=== PATIENT | male | born 1945 | race Caucasian/White ===

== ENCOUNTER 2020-07-20 10:53 | Outpatient (REF) | payer MEDICARE, OTHER, SELFPAY ==
[2020-07-20 13:30] LABS: MANUAL DIFF FLAG NO
[2020-07-20 13:43] LABS: Basophils Absolute Auto 0.1 X10*3/uL (0.0-0.2); Eosinophils Absolute Auto 0.1 X10*3/uL (0.0-0.4); Eosinophils Percent Auto 2.6 % (0-4); Hematocrit 48.1 % (42-52); Hemoglobin 15.8 g/dl (14.0-18.0); Imm Gran Abs Auto 0.02 X10*3/uL (0.00-0.03); Imm Gran Pct Auto 0.4 % (0.0-0.4); Lymphocytes Absolute Auto 1.4 X10*3/uL (1.2-4.9); Lymphocytes Percent Auto 26.7 % (20-40); Mean Corpuscular HGB Conc 32.8 g/dl (31.0-36.0); Mean Corpuscular Hemoglobin 30.2 pg (27.0-33.0); Mean Platelet Volume 12.3 fL (9.4-12.4); Monocytes Absolute Auto 0.4 X10*3/uL (0.1-1.2); Monocytes Percent Auto 6.9 % (2-11); Neutrophils Absolute Auto 3.2 X10*3/uL (2.0-8.3); Neutrophils Percent Auto 62.4 % (45-73); Platelet Count 202 X10*3/uL (160-400); Red Blood Count 5.23 X10*6/uL (4.60-5.80); Red Cell Distribution Width 13.2 % (11.0-16.0); White Blood Count 5.1 X10*3/uL (4.8-10.8)
[2020-07-20 14:14] LABS: Alanine Aminotransferase 29 U/L (0-40); Albumin Level 4.3 g/dL (3.5-5.0); Alkaline Phosphatase 55 U/L (39-117); Anion Gap 11 (12-20); Aspartate Amino Transferase 19 U/L (5-37); Bilirubin Total 1.1 mg/dL (0.0-1.0); Blood Urea Nitrogen 17 mg/dL (9-16); Calcium 9.6 mg/dL (8.4-10.2); Carbon Dioxide 29 mmol/L (22-29); Chloride 106 mmol/L (96-108); Cholesterol 188 mg/dL; Estimated Glomerular Filt Rate > 60; Glucose Fasting 106 mg/dL (60-99); HDL Cholesterol 42 mg/dL; LDL Cholesterol Calculated 111 mg/dl; Potassium 4.8 mmol/L (3.3-5.1); Sodium 141 mmol/L (135-145); Total Protein 6.6 g/dL (6.5-8.0); Triglycerides 177 mg/dL
[2020-07-20 14:22] LABS: Prostate Specific Antigen 2.53 ng/mL (<0.05-4.0)
[2020-07-25 14:17] LABS: Testosterone, Free 89.5 pg/mL (30.0-135.0); Testosterone, Total 476 ng/dL (250-1100)
== END 2020-07-20 10:54 | disposition home or self-care (01) ==
LOC: HO.10HDL 10:53
PROVIDERS: Referring Provider Urology; Visit Provider Internal Medicine Medical Oncology
DX: Q98.4 Klinefelter syndrome, unspecified (principal); C61 Malignant neoplasm of prostate; E66.3 Overweight; Z12.5 Encounter for screening for malignant neoplasm of prostate
CPT/HCPCS: 36415; 80053; 80061; 84153; 84402; 84403; 85025

== ENCOUNTER → 2020-07-24 08:26 | Outpatient (BNVA) | payer MEDICARE, OTHER, SELFPAY | PROVIDERS: Visit Provider Urology | CPT/HCPCS: Q3014 ==

== ENCOUNTER 2020-10-20 09:40 | Outpatient (REF) | payer MEDICARE, OTHER, SELFPAY ==
[2020-10-20 10:15] LABS: MANUAL DIFF FLAG NO
[2020-10-20 10:19] LABS: Basophils Absolute Auto 0.1 X10*3/uL (0.0-0.2); Basophils Percent Auto 0.8 % (0-2); Eosinophils Absolute Auto 0.2 X10*3/uL (0.0-0.4); Hematocrit 48.6 % (42-52); Hemoglobin 16.4 g/dl (14.0-18.0); Imm Gran Abs Auto 0.02 X10*3/uL (0.00-0.03); Imm Gran Pct Auto 0.3 % (0.0-0.4); Lymphocytes Absolute Auto 1.3 X10*3/uL (1.2-4.9); Lymphocytes Percent Auto 20.8 % (20-40); Mean Corpuscular HGB Conc 33.7 g/dl (31.0-36.0); Mean Corpuscular Hemoglobin 30.8 pg (27.0-33.0); Mean Corpuscular Volume 91.4 fL (80-98); Mean Platelet Volume 11.6 fL (9.4-12.4); Monocytes Absolute Auto 0.5 X10*3/uL (0.1-1.2); Monocytes Percent Auto 8.5 % (2-11); Neutrophils Absolute Auto 4.3 X10*3/uL (2.0-8.3); Neutrophils Percent Auto 66.6 % (45-73); Platelet Count 225 X10*3/uL (160-400); Red Blood Count 5.32 X10*6/uL (4.60-5.80); Red Cell Distribution Width 13.5 % (11.0-16.0); White Blood Count 6.4 X10*3/uL (4.8-10.8)
[2020-10-20 10:47] LABS: Alanine Aminotransferase 42 U/L (0-40); Albumin Level 4.2 g/dL (3.5-5.0); Alkaline Phosphatase 61 U/L (39-117); Anion Gap 11 (12-20); Aspartate Amino Transferase 24 U/L (5-37); Bilirubin Total 0.9 mg/dL (0.0-1.0); Blood Urea Nitrogen 12 mg/dL (9-16); Calcium 9.7 mg/dL (8.4-10.2); Carbon Dioxide 28 mmol/L (22-29); Chloride 108 mmol/L (96-108); Cholesterol 182 mg/dL; Estimated Glomerular Filt Rate > 60; Glucose Fasting 108 mg/dL (60-99); HDL Cholesterol 42 mg/dL; LDL Cholesterol Calculated 117 mg/dl; Potassium 5.1 mmol/L (3.3-5.1); Sodium 142 mmol/L (135-145); Total Protein 6.7 g/dL (6.5-8.0); Triglycerides 119 mg/dL
[2020-10-20 11:04] LABS: Prostate Specific Antigen 3.79 ng/mL (<0.05-4.0)
== END 2020-10-20 09:41 | disposition home or self-care (01) ==
LOC: HO.10HDL 09:40
PROVIDERS: PCP Internal Medicine Medical Oncology; Visit Provider Urology
DX: C61 Malignant neoplasm of prostate (principal); Q98.4 Klinefelter syndrome, unspecified; N40.0 Benign prostatic hyperplasia without lower urinary tract symptoms; E66.3 Overweight; Z86.79 Personal history of other diseases of the circulatory system
CPT/HCPCS: 36415; 80053; 80061; 84153; 85025

== ENCOUNTER → 2020-10-29 16:01 | Outpatient (BNVA) | payer MEDICARE, OTHER, SELFPAY | PROVIDERS: PCP Internal Medicine Medical Oncology; Visit Provider Urology | CPT/HCPCS: Q3014 ==

== ENCOUNTER 2021-08-10 08:31 | Outpatient (REF) | payer MEDICARE, OTHER, SELFPAY ==
[2021-08-10 11:45] LABS: MANUAL DIFF FLAG NO
[2021-08-10 12:02] LABS: Basophils Percent Auto 0.7 % (0-2); Eosinophils Absolute Auto 0.1 X10*3/uL (0.0-0.4); Eosinophils Percent Auto 2.4 % (0-4); Hematocrit 48.9 % (42.0-52.0); Hemoglobin 16.2 g/dl (14.0-18.0); Imm Gran Abs Auto 0.02 X10*3/uL (0.00-0.03); Imm Gran Pct Auto 0.3 % (0.0-0.4); Lymphocytes Absolute Auto 1.4 X10*3/uL (1.2-4.9); Lymphocytes Percent Auto 25.1 % (20-40); Mean Corpuscular HGB Conc 33.1 g/dl (31.0-36.0); Mean Corpuscular Hemoglobin 30.4 pg (27.0-33.0); Mean Corpuscular Volume 91.7 fL (80.0-98.0); Monocytes Absolute Auto 0.5 X10*3/uL (0.1-1.2); Monocytes Percent Auto 8.9 % (2-11); Neutrophils Absolute Auto 3.6 x10*3/uL (2.0-8.3); Neutrophils Percent Auto 62.6 % (45-73); Platelet Count 201 X10*3/uL (160-400); Red Blood Count 5.33 X10*6/uL (4.60-5.80); Red Cell Distribution Width 13.2 % (11.0-16.0); White Blood Count 5.7 X10*3/uL (4.8-10.8)
[2021-08-10 12:16] LABS: Alanine Aminotransferase 25 U/L (0-40); Albumin Level 4.2 g/dL (3.5-5.0); Alkaline Phosphatase 57 U/L (39-117); Anion Gap 12 (12-20); Aspartate Amino Transferase 20 U/L (5-37); Bilirubin Total 1.3 mg/dL (0.0-1.0); Blood Urea Nitrogen 12 mg/dL (9-16); Calcium 9.4 mg/dL (8.4-10.2); Carbon Dioxide 28 mmol/L (22-29); Chloride 105 mmol/L (96-108); Cholesterol 112 mg/dL; Estimated Glomerular Filt Rate > 60; Glucose Fasting 117 mg/dL (60-99); HDL Cholesterol 40 mg/dL; LDL Cholesterol Calculated 47 mg/dl; Potassium 5.1 mmol/L (3.3-5.1); Sodium 140 mmol/L (135-145); Total Protein 6.6 g/dL (6.5-8.0); Triglycerides 127 mg/dL
[2021-08-10 12:30] LABS: PSA,Total (Free>4and<10) 3.18 ng/mL (0.00-4.00)
[2021-08-10 12:46] LABS: Prostate Specific Antigen 3.18 ng/mL (<0.05-4.0)
== END 2021-08-10 08:32 | disposition home or self-care (01) ==
LOC: HO.HMGCLDS 08:31
PROVIDERS: Absent Provider Urology; PCP Internal Medicine Medical Oncology; Visit Provider Internal Medicine Medical Oncology
DX: N40.0 Benign prostatic hyperplasia without lower urinary tract symptoms (principal); C61 Malignant neoplasm of prostate; E66.3 Overweight; Z12.5 Encounter for screening for malignant neoplasm of prostate
CPT/HCPCS: 36415; 80053; 80061; 84153; 85025

== ENCOUNTER → 2021-10-06 14:04 | Outpatient (BNVA) | payer MEDICARE, OTHER, SELFPAY | PROVIDERS: PCP Internal Medicine Medical Oncology; Visit Provider Urology | DX: C61 Malignant neoplasm of prostate (principal); N52.1 Erectile dysfunction due to diseases classified elsewhere | CPT/HCPCS: 99212 ==

== ENCOUNTER 2022-07-28 09:59 | Outpatient (REF) | payer MEDICARE, OTHER, SELFPAY ==
[2022-07-28 11:00] LABS: MANUAL DIFF FLAG NO
[2022-07-28 11:24] LABS: Basophils Absolute Auto 0.1 X10*3/uL (0.0-0.2); Basophils Percent Auto 1.1 % (0-2); Eosinophils Absolute Auto 0.2 X10*3/uL (0.0-0.4); Eosinophils Percent Auto 4.3 % (0-4); Hematocrit 47.6 % (42.0-52.0); Imm Gran Abs Auto 0.04 X10*3/uL (0.00-0.03); Imm Gran Pct Auto 0.8 % (0.0-0.4); Lymphocytes Absolute Auto 1.2 X10*3/uL (1.2-4.9); Lymphocytes Percent Auto 22.2 % (20-40); Mean Corpuscular HGB Conc 33.6 g/dl (31.0-36.0); Mean Corpuscular Hemoglobin 30.5 pg (27.0-33.0); Mean Corpuscular Volume 90.8 fL (80.0-98.0); Monocytes Absolute Auto 0.5 X10*3/uL (0.1-1.2); Monocytes Percent Auto 8.5 % (2-11); Neutrophils Absolute Auto 3.4 x10*3/uL (2.0-8.3); Neutrophils Percent Auto 63.1 % (45-73); Platelet Count 186 X10*3/uL (160-400); Red Blood Count 5.24 X10*6/uL (4.60-5.80); Red Cell Distribution Width 13.6 % (11.0-16.0); White Blood Count 5.3 X10*3/uL (4.8-10.8)
[2022-07-28 12:17] LABS: Alanine Aminotransferase 25 U/L (0-40); Albumin Level 4.1 g/dL (3.5-5.0); Alkaline Phosphatase 55 U/L (39-117); Anion Gap 14 (12-20); Aspartate Amino Transferase 23 U/L (5-37); Bilirubin Total 1.4 mg/dL (0.0-1.0); Blood Urea Nitrogen 11 mg/dL (9-16); Calcium 9.1 mg/dL (8.4-10.2); Carbon Dioxide 24 mmol/L (22-29); Chloride 105 mmol/L (96-108); Cholesterol 118 mg/dL; Estimated Glomerular Filt Rate > 60; Glucose Fasting 106 mg/dL (60-99); HDL Cholesterol 40 mg/dL; LDL Cholesterol Calculated 57 mg/dl; Potassium 4.9 mmol/L (3.3-5.1); Sodium 138 mmol/L (135-145); Total Protein 6.6 g/dL (6.5-8.0); Triglycerides 106 mg/dL
== END 2022-07-28 10:00 | disposition home or self-care (01) ==
LOC: HO.HMGCLDS 09:59
PROVIDERS: PCP Internal Medicine Medical Oncology; Visit Provider Urology
DX: E78.5 Hyperlipidemia, unspecified (principal); I20.0 Unstable angina
CPT/HCPCS: 36415; 80053; 80061; 85025

== ENCOUNTER 2022-08-12 09:53 | Outpatient (REF) | payer MEDICARE, OTHER, SELFPAY ==
[2022-08-12 12:11] LABS: Prostate Specific Antigen 3.77 ng/mL (<0.05-4.0)
== END 2022-08-12 09:54 | disposition home or self-care (01) ==
LOC: HO.HMGCLDS 09:53
PROVIDERS: PCP Internal Medicine Medical Oncology; Visit Provider Urology
DX: Z12.5 Encounter for screening for malignant neoplasm of prostate (principal); C61 Malignant neoplasm of prostate
CPT/HCPCS: 36415; 84153

== ENCOUNTER 2022-08-18 14:00 | Outpatient (AMB) | payer MEDICARE, OTHER, SELFPAY ==
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
== END 2022-08-18 15:16 | disposition home or self-care (01) ==
LOC: HO.HUSH 14:00
PROVIDERS: PCP Internal Medicine Medical Oncology; Visit Provider Urology
DX: C61 Malignant neoplasm of prostate (principal); N52.1 Erectile dysfunction due to diseases classified elsewhere
CPT/HCPCS: 99442

== ENCOUNTER → 2022-08-18 14:00 | Outpatient (BNVA) | payer MEDICARE, OTHER, SELFPAY | PROVIDERS: PCP Internal Medicine Medical Oncology; Visit Provider Urology ==

== ENCOUNTER 2022-10-12 09:54 | Outpatient (REF) | payer MEDICARE, OTHER, SELFPAY ==
[2022-10-12 11:21] LABS: MANUAL DIFF FLAG NO
[2022-10-12 11:32] LABS: Basophils Absolute Auto 0.1 X10*3/uL (0.0-0.2); Basophils Percent Auto 0.7 % (0-2); Eosinophils Absolute Auto 0.2 X10*3/uL (0.0-0.4); Eosinophils Percent Auto 2.6 % (0-4); Hematocrit 49.2 % (42.0-52.0); Hemoglobin 16.4 g/dl (14.0-18.0); Imm Gran Abs Auto 0.03 X10*3/uL (0.00-0.03); Imm Gran Pct Auto 0.4 % (0.0-0.4); Lymphocytes Absolute Auto 0.9 X10*3/uL (1.2-4.9); Lymphocytes Percent Auto 12.5 % (20-40); Mean Corpuscular HGB Conc 33.3 g/dl (31.0-36.0); Mean Corpuscular Hemoglobin 29.8 pg (27.0-33.0); Mean Corpuscular Volume 89.5 fL (80.0-98.0); Mean Platelet Volume 12.4 fL (9.4-12.4); Monocytes Absolute Auto 0.5 X10*3/uL (0.1-1.2); Monocytes Percent Auto 6.1 % (2-11); Neutrophils Absolute Auto 5.9 x10*3/uL (2.0-8.3); Neutrophils Percent Auto 77.7 % (45-73); Platelet Count 176 X10*3/uL (160-400); Red Cell Distribution Width 13.5 % (11.0-16.0); White Blood Count 7.6 X10*3/uL (4.8-10.8)
[2022-10-12 12:09] LABS: Alanine Aminotransferase 27 U/L (0-40); Albumin Level 4.2 g/dL (3.5-5.0); Alkaline Phosphatase 52 U/L (39-117); Anion Gap 10 (12-20); Aspartate Amino Transferase 21 U/L (5-37); Bilirubin Total 1.8 mg/dL (0.0-1.0); Blood Urea Nitrogen 15 mg/dL (9-16); Calcium 9.1 mg/dL (8.4-10.2); Carbon Dioxide 25 mmol/L (22-29); Chloride 109 mmol/L (96-108); Cholesterol 134 mg/dL; Estimated Glomerular Filt Rate > 60; Glucose Random 108 mg/dL (60-115); HDL Cholesterol 47 mg/dL; LDL Cholesterol Calculated 63 mg/dl; Potassium 4.3 mmol/L (3.3-5.1); Sodium 140 mmol/L (135-145); Total Protein 6.8 g/dL (6.5-8.0); Triglycerides 122 mg/dL
== END 2022-10-12 09:55 | disposition home or self-care (01) ==
LOC: HO.WFDLDS 09:54
PROVIDERS: Visit Provider Internal Medicine Medical Oncology
DX: C61 Malignant neoplasm of prostate (principal); N40.0 Benign prostatic hyperplasia without lower urinary tract symptoms; E66.3 Overweight
CPT/HCPCS: 36415; 80053; 80061; 84153; 85025

== ENCOUNTER 2023-07-26 09:35 | Outpatient (REF) | payer MEDICARE, OTHER, SELFPAY ==
[2023-07-26 11:42] LABS: MANUAL DIFF FLAG NO
[2023-07-26 11:51] LABS: Basophils Absolute Auto 0.1 X10*3/uL (0.0-0.2); Basophils Percent Auto 1.2 % (0-2); Eosinophils Absolute Auto 0.2 X10*3/uL (0.0-0.4); Eosinophils Percent Auto 2.9 % (0-4); Hemoglobin 16.5 g/dl (14.0-18.0); Imm Gran Abs Auto 0.01 X10*3/uL (0.00-0.03); Imm Gran Pct Auto 0.2 % (0.0-0.4); Lymphocytes Percent Auto 19.4 % (20-40); Mean Corpuscular HGB Conc 33.7 g/dl (31.0-36.0); Mean Corpuscular Hemoglobin 30.7 pg (27.0-33.0); Mean Corpuscular Volume 91.1 fL (80.0-98.0); Mean Platelet Volume 12.4 fL (9.4-12.4); Monocytes Absolute Auto 0.4 X10*3/uL (0.1-1.2); Monocytes Percent Auto 8.4 % (2-11); Neutrophils Absolute Auto 3.5 x10*3/uL (2.0-8.3); Neutrophils Percent Auto 67.9 % (45-73); Platelet Count 184 X10*3/uL (160-400); Red Blood Count 5.38 X10*6/uL (4.60-5.80); Red Cell Distribution Width 13.4 % (11.0-16.0); White Blood Count 5.1 X10*3/uL (4.8-10.8)
[2023-07-26 12:36] LABS: Alanine Aminotransferase 26 U/L (0-40); Albumin Level 4.3 g/dL (3.5-5.0); Alkaline Phosphatase 51 U/L (39-117); Anion Gap 11 (12-20); Aspartate Amino Transferase 24 U/L (5-37); Bilirubin Total 1.7 mg/dL (0.0-1.0); Blood Urea Nitrogen 14 mg/dL (9-16); Calcium 9.7 mg/dL (8.4-10.2); Carbon Dioxide 27 mmol/L (22-29); Chloride 105 mmol/L (96-108); Cholesterol 110 mg/dL (<200); Estimated Glomerular Filt Rate > 60; Glucose Fasting 91 mg/dL (60-99); HDL Cholesterol 42 mg/dL (>40); LDL Cholesterol Calculated 46 mg/dL (<100); Potassium 4.4 mmol/L (3.3-5.1); Sodium 139 mmol/L (135-145); Total Protein 6.9 g/dL (6.5-8.0); Triglycerides 110 mg/dL (<150)
[2023-07-29 11:28] LABS: Free Prostate Spec Ag 0.8 ng/mL; Percent Free Prostate Spec Ag 19 % (calc) (>25); Prostate Specific Ag Total 4.2 ng/mL (< OR = 4.0)
[2023-07-31 17:04] LABS: Testosterone, Total 1117 ng/dL (250-1100)
== END 2023-07-26 09:36 | disposition home or self-care (01) ==
LOC: HO.WFDLDS 09:35
PROVIDERS: Urology; Visit Provider Internal Medicine Medical Oncology
DX: C61 Malignant neoplasm of prostate (principal); Z12.5 Encounter for screening for malignant neoplasm of prostate; N40.0 Benign prostatic hyperplasia without lower urinary tract symptoms; E66.3 Overweight; N52.9 Male erectile dysfunction, unspecified
CPT/HCPCS: 36415; 80053; 80061; 84153; 84154; 84403; 85025

== ENCOUNTER 2023-08-03 09:32 | Outpatient (AMB) | payer MEDICARE, OTHER, SELFPAY ==
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
== END 2023-08-03 10:49 | disposition home or self-care (01) ==
PROVIDERS: PCP Internal Medicine Medical Oncology; Visit Provider Urology
DX: C61 Malignant neoplasm of prostate (principal); N52.1 Erectile dysfunction due to diseases classified elsewhere
CPT/HCPCS: 99213

== ENCOUNTER → 2023-08-03 09:32 | Outpatient (BNVA) | payer MEDICARE, OTHER, SELFPAY | PROVIDERS: PCP Internal Medicine Medical Oncology; Visit Provider Urology | DX: C61 Malignant neoplasm of prostate (principal); N52.1 Erectile dysfunction due to diseases classified elsewhere; R97.20 Elevated prostate specific antigen [PSA] | CPT/HCPCS: 99212 ==

== ENCOUNTER 2023-11-03 09:05 | Outpatient (AMB) | payer MEDICARE, OTHER, SELFPAY ==
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
== END 2023-11-03 09:54 | disposition home or self-care (01) ==
PROVIDERS: PCP Internal Medicine Medical Oncology; Visit Provider Urology
DX: E29.1 Testicular hypofunction (principal); C61 Malignant neoplasm of prostate
CPT/HCPCS: 99213

== ENCOUNTER → 2023-11-03 09:05 | Outpatient (BNVA) | payer MEDICARE, OTHER, SELFPAY | PROVIDERS: PCP Internal Medicine Medical Oncology; Visit Provider Urology | DX: C61 Malignant neoplasm of prostate (principal); N52.9 Male erectile dysfunction, unspecified; E29.1 Testicular hypofunction; Z79.899 Other long term (current) drug therapy | CPT/HCPCS: 99212 ==

== ENCOUNTER 2023-11-06 10:20 | Outpatient (REF) | payer MEDICARE, OTHER, SELFPAY ==
[2023-11-06 14:27] LABS: MANUAL DIFF FLAG NO
[2023-11-06 14:42] LABS: Basophils Absolute Auto 0.1 X10*3/uL (0.0-0.2); Basophils Percent Auto 1.1 % (0-2); Eosinophils Absolute Auto 0.1 X10*3/uL (0.0-0.4); Eosinophils Percent Auto 2.3 % (0-4); Hemoglobin 16.9 g/dl (14.0-18.0); Imm Gran Abs Auto 0.01 X10*3/uL (0.00-0.03); Imm Gran Pct Auto 0.2 % (0.0-0.4); Lymphocytes Absolute Auto 1.1 X10*3/uL (1.2-4.9); Lymphocytes Percent Auto 20.2 % (20-40); Mean Corpuscular HGB Conc 33.1 g/dl (31.0-36.0); Mean Corpuscular Volume 90.4 fL (80.0-98.0); Mean Platelet Volume 12.5 fL (9.4-12.4); Monocytes Absolute Auto 0.5 X10*3/uL (0.1-1.2); Monocytes Percent Auto 8.1 % (2-11); Neutrophils Absolute Auto 3.8 x10*3/uL (2.0-8.3); Neutrophils Percent Auto 68.1 % (45-73); Platelet Count 179 X10*3/uL (160-400); Red Blood Count 5.64 X10*6/uL (4.60-5.80); Red Cell Distribution Width 13.6 % (11.0-16.0); White Blood Count 5.5 X10*3/uL (4.8-10.8)
[2023-11-06 15:10] LABS: Alanine Aminotransferase 23 U/L (0-40); Albumin Level 4.1 g/dL (3.5-5.0); Alkaline Phosphatase 50 U/L (39-117); Anion Gap 13 (12-20); Aspartate Amino Transferase 21 U/L (5-37); Bilirubin Total 1.5 mg/dL (0.0-1.0); Blood Urea Nitrogen 12 mg/dL (9-16); Calcium 9.8 mg/dL (8.4-10.2); Carbon Dioxide 27 mmol/L (22-29); Chloride 106 mmol/L (96-108); Estimated Glomerular Filt Rate > 60; Glucose Fasting 108 mg/dL (60-99); Potassium 4.9 mmol/L (3.3-5.1); Sodium 141 mmol/L (135-145); Total Protein 6.6 g/dL (6.5-8.0)
[2023-11-06 15:11] LABS: Thyroid Stimulating Hormone 4.07 uIU/mL (0.32-4.0)
[2023-11-07 12:27] LABS: Percent Free Prostate Spec Ag 26 % (calc) (>25); Prostate Specific Ag Total 3.9 ng/mL (< OR = 4.0)
== END 2023-11-06 10:21 | disposition home or self-care (01) ==
LOC: HO.WFDLDS 10:20
PROVIDERS: Visit Provider Internal Medicine Medical Oncology
DX: Z00.00 Encounter for general adult medical examination without abnormal findings (principal); N40.0 Benign prostatic hyperplasia without lower urinary tract symptoms; C61 Malignant neoplasm of prostate; E66.3 Overweight; I25.10 Atherosclerotic heart disease of native coronary artery without angina pectoris; Q98.4 Klinefelter syndrome, unspecified; Z86.79 Personal history of other diseases of the circulatory system
CPT/HCPCS: 36415; 80053; 84154; 84443; 85025

== ENCOUNTER 2023-11-23 11:49 | Day surgery (SDC) | payer MEDICARE, OTHER, SELFPAY ==
[2023-11-21 13:40] VITALS: BMI 27.6
--- NOTE | 2023-11-22 10:05 | HO.ANESPROP2 ---
Documented by User: Angella Salmon NP 11/22/23 10:11 HPI - Anesthesia Eval Consult details Narrative: 78yo M for Colonoscopy [place]s [place] of state cardiology. Last office visit 04/2023 CAD s/p stents x 2021 plavix/asa Afib, no recurrence s/p ablation PMFSH Active Problems Active Problems: All Active Problems Hypogonadism in male (Acute) Erectile dysfunction due to diseases classified elsewhere (Acute) Prostate cancer (Acute) Past Medical History Medical History CAD (coronary artery disease) Glaucoma Afib Erectile dysfunction due to diseases classified elsewhere Prostate cancer Elevated PSA Surgical History Surgical History Hx of prostate biopsy Hx of hand surgery Hx of carpal tunnel repair Hx of knee surgery Hx of cholecystectomy Hx of appendectomy History of cardiac radiofrequency ablation (RFA) H/O colonoscopy Social History Social History Are you a primary personal care attendant to a significant other at home: No Do you presently have visiting nurse or other home services: No Patient Tobacco Use Status: Former Tobacco user Tobacco use type: Cigarette Cigarette Packs Per Day: 0.5 Cigarettes Per Day: 10.0 Years Smoked: 20 Smoked in Last 30 Days: No Use of substances other than those prescribed or required for medical reasons: No Have you been hit, kicked, punched, or otherwise hurt by someone within the past year? If so, by whom?: No Are you DNR?: No Advance Directives: No Advance Directives Information Provided: Yes Recently lost weight without trying: No How much weight loss: Not applicable Eating poorly because of decreased appetite: No Nutrition screen score: 0 Nutrition Risks: No Nutritional Risk Poor oral hygiene: No Meds Allergies Allergy/AdvReac Type Severity Reaction Status Date / Time No Known Allergies Allergy Verified 11/23/23 12:27 Home Medications ?Medication ?Instructions ?Recorded ?Confirmed ?Last Taken ?Type aspirin 81 mg tablet,delayed 81 mg PO DAILY 11/21/23 11/23/23 11/21/23 History release atorvastatin 20 mg tablet 20 mg PO DAILY 11/21/23 11/23/23 Unknown History clopidogrel 75 mg tablet 75 mg PO DAILY 11/21/23 11/23/23 11/18/23 History metoprolol succinate 25 mg 25 mg PO DAILY 11/21/23 11/23/23 11/22/23 History tablet,extended release 24 hr timolol 0.25 % eye drops 1 drp ophthalmic (eye) BID 11/21/23 11/23/23 Unknown History Exam Height,Weight and Vital Signs: Height 5 ft 11 in Weight 89.811 kg Pertinent Lab Results Pertinent Lab Results: Laboratory Tests 11/06/23 10:28 WBC 5.5 Hgb 16.9 Hct 51.0 Plt Count 179 Sodium 141 Potassium 4.9 Chloride 106 Carbon Dioxide 27 BUN 12 Creatinine 0.88 Narrative Narrative: See cardiac office visit note for stress echo and cath results Assessment and Plan Assessment Anesthesia Assessment: Chart Reviewed Documented by User: Aubree Cruz MD 11/23/23 13:01 [facility] Past Medical History Medical History CAD (coronary artery disease) Glaucoma Afib Erectile dysfunction due to diseases classified elsewhere Prostate cancer Elevated PSA Surgical History Surgical History Hx of prostate biopsy Hx of hand surgery Hx of carpal tunnel repair Hx of knee surgery Hx of cholecystectomy Hx of appendectomy History of cardiac radiofrequency ablation (RFA) H/O colonoscopy History of Problems with Anesthesia: No Social History Social History Are you a primary personal care attendant to a significant other at home: No Do you presently have visiting nurse or other home services: No Patient Tobacco Use Status: Former Tobacco user Tobacco use type: Cigarette Cigarette Packs Per Day: 0.5 Cigarettes Per Day: 10.0 Years Smoked: 20 Smoked in Last 30 Days: No Use of substances other than those prescribed or required for medical reasons: No Have you been hit, kicked, punched, or otherwise hurt by someone within the past year? If so, by whom?: No Are you DNR?: No Advance Directives: No Advance Directives Information Provided: Yes Recently lost weight without trying: No How much weight loss: Not applicable Eating poorly because of decreased appetite: No Nutrition screen score: 0 Nutrition Risks: No Nutritional Risk Poor oral hygiene: No Meds Allergies Allergy/AdvReac Type Severity Reaction Status Date / Time No Known Allergies Allergy Verified 11/23/23 12:27 Home Medications ?Medication ?Instructions ?Recorded ?Confirmed ?Last Taken ?Type aspirin 81 mg tablet,delayed 81 mg PO DAILY 11/21/23 11/23/23 11/21/23 History release atorvastatin 20 mg tablet 20 mg PO DAILY 11/21/23 11/23/23 Unknown History clopidogrel 75 mg tablet 75 mg PO DAILY 11/21/23 11/23/23 11/18/23 History metoprolol succinate 25 mg 25 mg PO DAILY 11/21/23 11/23/23 11/22/23 History tablet,extended release 24 hr timolol 0.25 % eye drops 1 drp ophthalmic (eye) BID 11/21/23 11/23/23 Unknown History Exam Airway Mallampati Class: III TM Dist: >3cm Loose/Missing/Broken Teeth: No Heart: RRR Lungs: CTA Assessment and Plan Assessment Anesthesia Assessment: Anesthesia Plan Discussed Final Anesthetic Review History of Problems with Anesthesia: No NPO: Yes ASA Class: III Final Preanesthetic Review: Meds/Allgs Chart Reviewed, Consent Obtained/Reviewed and Anes Risks/Benef Reviewed Patient Risk: Intermediate Procedure Risk: Low Anesthetic Plan Anesthetic Plan: MAC: Disposition: Standard PACU
[2023-11-23 12:29] VITALS: BP 145/71; PULSE 65; RESP 16; TEMP 36.6; O2SAT 96; BMI 27.9
[2023-11-23] MEDS: Lactated Ringers 1,000 ML 100 ML IVCONT (12:59)
[2023-11-23 14:23] VITALS: PULSE 66; RESP 16; TEMP 36.6; O2SAT 97
--- NOTE | 2023-11-23 14:28 | P.BOP_ITS ---
Brief Operative Note Date of Service: 11/23/23 Pre-op diagnosis: + Cologuard Post-op diagnosis: other (Colon polyps) Procedure: Colonoscopy to the cecum and TI with cold snare polypectomy x 4, hot snare polypectomy x 2 in the rectum, and placement of 1 Resolution clip on each polypectomy site. Surgeon: Phan Daily MD Anesthesia: MAC Was an Dental Appliance Mechanic used for this Procedure?: No Estimated blood loss (mL): 2.0 Pathology: other (A. Polyp at 50cm B. Cecal polyp C. Ascending colon polyps D. Rectal polyps) Condition: stable Disposition: PACU
[2023-11-23 14:38] VITALS: BP 127/63; PULSE 62; RESP 16; TEMP 36.6; O2SAT 98
--- NOTE | 2023-11-23 15:09 | OP_ITS ---
DATE OF SERVICE: 11/23/2023 SURGEON: Phan Daily MD INDICATIONS: The patient presents for evaluation of a positive Cologuard test and personal history of tubular adenoma of the colon. Full consent has been obtained from him for the procedure, including risks of bleeding and perforation. PREOPERATIVE DIAGNOSIS: POSTOPERATIVE DIAGNOSIS: PROCEDURE PERFORMED: Colonoscopy to the cecum and terminal ileum with cold snare polypectomy x4, hot snare polypectomy of rectal polyps x2, and placement of a single Resolution clip on each polypectomy site. ESTIMATED BLOOD LOSS: COMPLICATIONS: ANESTHESIA: Monitored anesthesia care. ASSISTANTS: SPECIMENS: PREOPERATIVE DIAGNOSES: Positive Cologuard test and personal history of tubular adenoma of the colon. POSTOPERATIVE DIAGNOSES: Positive Cologuard test, personal history of tubular adenoma of the colon, colon polyps, diverticulosis, and internal hemorrhoids. DESCRIPTION OF PROCEDURE: The patient was placed in the left lateral decubitus position. The digital rectal exam revealed no abnormalities. The [employer] video pediatric colonoscope was then entered into the rectum and advanced easily to the cecum. Once in the cecum, I did identify normal-appearing cecal pouch other than an approximately 5 mm polyp, which was removed by cold snare polypectomy and recovered by suction. The polypectomy site appeared clean, without any sign of residual polyp nor bleeding. The terminal ileum was cannulated and appeared normal. The scope was withdrawn back to the cecum. The remainder of the cecum appeared normal. A single Resolution clip was applied to the polypectomy site with good deployment and good hemostasis. The scope was then slowly withdrawn assessing all mucosal surfaces carefully. Preparation was excellent. In the ascending colon and at 50 cm, were flat, approximately 5 or 6 mm polyps, which were each removed by cold snare polypectomy and recovered by suction. The polypectomy sites appeared clean, without any sign of residual polyp nor significant bleeding. I did place a single Resolution clip on each polypectomy site with good deployment and good hemostasis. There was a mild amount of sigmoid diverticulosis. I did not visualize any sign of colitis nor angiodysplasias. In the distal rectum, seen best in the forward viewing position, were 2 grossly adenomatous polyps, each measuring about 10 to 12 mm in size. These were both removed by hot snare polypectomy and recovered by suction. The polypectomy sites appeared clean, without any sign of residual polyp nor bleeding. A single Resolution clip was placed on each polypectomy site with good deployment and good hemostasis. Internal hemorrhoids were noted in the retroflexed position. The scope was straightened and withdrawn from the patient. He tolerated the procedure well and was returned to the recovery area in stable condition. IMPRESSION: 1. Colon polyps. 2. Diverticulosis. 3. Internal hemorrhoids. PLAN: The results of the pathology will be checked. Given his age approaching 80 and these findings, he does not need any further screening colonoscopies. He was advised to resume his clopidogrel and aspirin tomorrow. He will, otherwise, see me on a p.r.n. basis. This has been discussed with his . MD KOMAL Solis/SELINA / [id number]
== END 2023-11-23 15:03 | disposition home or self-care (01) ==
PROVIDERS: PCP Internal Medicine Medical Oncology; Visit Provider Internal Medicine
PROC: 0DJD8ZZ Inspection of Lower Intestinal Tract, Via Natural or Artificial Opening Endoscopic (ICD-10-PCS; CPT 45378; principal; 2023-11-23 13:00)
DX: D12.0 Benign neoplasm of cecum (principal); D12.2 Benign neoplasm of ascending colon; D12.5 Benign neoplasm of sigmoid colon; D12.8 Benign neoplasm of rectum; K57.30 Diverticulosis of large intestine without perforation or abscess without bleeding; K64.8 Other hemorrhoids; R19.5 Other fecal abnormalities; Z86.010 Personal history of colon polyps; Z80.0 Family history of malignant neoplasm of digestive organs; I48.91 Unspecified atrial fibrillation; I25.10 Atherosclerotic heart disease of native coronary artery without angina pectoris; Z85.46 Personal history of malignant neoplasm of prostate; Z87.891 Personal history of nicotine dependence; Z79.82 Long term (current) use of aspirin; Z79.02 Long term (current) use of antithrombotics/antiplatelets; Z79.899 Other long term (current) drug therapy
CPT/HCPCS: 45385; 88305; J2704

== ENCOUNTER 2024-07-16 11:38 | Outpatient (REF) | payer MEDICARE, OTHER, SELFPAY ==
--- OUTSIDE RECORDS SUMMARY | 2024-07-16 12:51 | XMS_ITS ---
Author Organization [facility] Address [address] [place] [address] Care Team Providers Care Learning And Development Manager Name Role Phone Johanny VASQUES, Phan Primary Care Provider Unavailab Phan Alvarez Unavailable [phone] REASON FOR VISIT positive colon ca screening using cologuard Problems Problem Type SNOMED Code ICD Code Onset Dates Problem Status W/U Status Risk Notes Problem Diverticulosis o f large intestine without perforation or abscess without bleeding (K57.30) Active confirmed Encounters Encounter Location Date Provider Diagnosis [facility] [place] Out[place] [address] [place], [place] [phone] 11/23/2023 Phan Daily Colon cancer scree glo [...] * ANTELMO BLANC MDOB:1945 (79 yo M)Acc No.[id number]:11/23/2023 COLON WITH MAC Patient:?ANTELMO BLANC Provider:?Phan Daily MD :1945???Age:78 Y???Sex:Male Chavez e:11/23/2023 Address:[address] [place], [place] [phone] Pcp:Phan Orlando MD Subjective: * Chief Complaints: * ???1. Positive colon ca scre ening using cologuard. * Medical History:? Objective: * Vitals:? Assessment: * Assessment: 1.?Colon cancer screening - Z12.11 (Primary)???2.?Colon polyps - K63.5???3.?Heme positive stool - R19.5???4.?Diverticulosis of large intestine without perforation or abscess without bleeding - K57.30???5.?Other hemorrhoids - K64.8??? Plan: * Treatment: * Procedure Codes:?38895 LESIO N REMOVAL COLONOSCOPY, Modifiers: PT , 0529F INTRVL 3+YRS PTS CLNSCP DOCD, 0528F RCMND FLW-UP 10 YRS DOCD, Modifiers: 1P * * The named appointment provid er may or may not be the originator of this progress note, and it is not deemed complete until electronically signed by the appointment provider. Sign off status: Pending * Provider:?Phan Daily MD Date:? 024 Generated for Nacho goyal/Esteban/eTpetesmitting on:?07/16/2024 12:51 PM EDT
--- OUTSIDE RECORDS SUMMARY | 2024-07-16 12:51 | XMS_ITS ---
Author Organization [facility] Address [address] [place] [address] Care Team Providers Care Crm Marketing Specialist Name Role Phone NO PCP, NO PCP Primary Care Provider Neeta Cole [phone] Allergies No Known Allergies REASON FOR VISIT 11MOZULEYKA/DILIP Medications Medication SIG (Take, Route, Frequency, Duration) Notes Start Date End Date Status Metoprolol Succinate ER 25 mg TAKE 1 TABLET DAILY for 90 Active Plavix 75 mg 1 tab(s) orally once a day for 90 days Active Atorvastatin Calcium 20 mg 1 tab(s) oral ly once a day for 90 days Active timolol ophthalmic hemihydrate 0.25% 1 gtt in each affected eye 2 times a day Active finasteride 5 mg 1 tab(s) orally once a day for 30 day(s) 25MG Active Aspirin EC 81 mg 1 tab(s) orally once a day for 30 day(s) Active Social History Tobacco Use: Social History Observation Description Date Details (start date - stop date) Former Smoker NA - NA Tobacco use Question Answer Notes Patient is a: former smoker previous tobacco quit 20+ years ago 1/2ppd x20 years Vital Signs Heart Rate 58 /min 02/09/2024 Blood pressure systolic 140 mm Hg 02/09/20 24 Blood pressure diastolic 80 mm Hg 024 Height 71 in 02/09/2024 Weight 192 lbs 02/09/2024 BMI 26.78 kg/m2 02/09/2024 Oximetry 97 /min 02/09/2024 Encounters Encounter Location Date Provider Diagnosis [facility] [address] [place] [address] 02/09/2024 Neeta Cherry Abnormal EKG R94.31 ; Atherosclerotic heart disease of [place] coronary artery without angina pectoris I25.10 and Elevated blood-pressure reading, without diagnosis of hypertension R03.0 Assessments Encounter Date Diagnosis (ICD Code) Assessment Notes Treatment Notes Treatment Clinical Notes Section Notes 02/09/2024 Abnormal EKG (ICD-10 - R94.31) 1) EKG SR PRWP early repol NSST changes 2)EKG: SR with ST depression in stress echo EKGs 02/09/2024 Atherosclerotic heart disease of [place] coronary artery without angina pectoris (ICD-10 - I25.10) 1) ekg nsr nsst changes unchanges 2) stress echo ( april 2023) --> imaged independently reviewed no ischemia 3) Cardiac cath (05/2021) -- > cath showed 99% mid rca s/p xience 3.5x28, xience 3.5x23, xience 3.5x12 mya mid rca 4) plavix/asa ok to alternate 5) cont statin 6) tchol 110 ldl 46 hdl 42 tg 110 02/09/2024 Elevated blood-pressure reading, without diagnosis of hypertension (ICD-10 - R03.0) 1) low sodium diet 2) exercise 3) wt loss 4) bp stable at present not on meds 5) advised to call with results if persistently in 150-160s would start arb 02/09/2024 Other Pt was advised that he/she should follow up with their PCP for routine wellness check. Plan Of Treatment Treatment Notes Assessment Notes Abnormal EKG 1) EKG SR PRWP early repol NSST changes 2)EKG: SR with ST depression in stress echo EKGs Atherosclerotic heart diseas e of [place] coronary artery without angina pectoris 1) ekg nsr nsst changes unchanges 2) stress echo ( april 2023) --> imaged independently reviewed no ischemia 3) Cardiac cath (05/2021) -- > cath showed 99% mid rca s/p xience 3.5x28, xience 3.5x23, xience 3.5x12 mya mid rca 4) plavix/asa ok to alternate 5) cont statin 6) tchol 110 ldl 46 hdl 42 tg 110 Elevated blood-pressure read ing, without diagnosis of hypertension 1) low sodium diet 2) exercise 3) wt loss 4) bp stable at present not on meds 5) advised to call with results if persistently in 150-160s would start arb Other Pt was advised that he/she should follow up with their PCP for routine wellness check. Pending Test Test Name Order Date EKG (35090) 02/09/2024 Next Appt Details Follow Up: 1 year (oct / t 2024), Reason: Provider Name:Neeta Cherry, 1 03/11/2024 10:00:00 AM, [address], [address], [place], [address], Procedure Notes * Category Sub-Category Detail Notes EKG EKG performed by: (time stamp) Brandon Gonzales MA Uploaded EKG has been uploade d to patient docs and communicated with ordering provider. Primary Machine Design Engineer: Dr. Dilip VASQUES Interpretation findings: nsr prwp early repol nsst changes Interpreting Provider (time stamp) Dilip Neeta 02/09/2024 10:32:08 AM EST > STRESS ECHOCARDIOGRAM Indicati on see assessment ETT/EKG Patient exercised fo r 06:08 minutes on treadmill using amy protocol. Resting HR 76, peak HR was 138 BPM 97 % of 142 MPHR @ 7.0 mets. BP at rest 151/87 . BP at peak exercise 196/88 , BP in recovery 154/88. Baseline EKG shows NS with ST/T wave changes. Stress EKG: baseline ST/T wave abnormalities exacerbated, No arrythmias. No symptoms suggestive of angina. Reason for termination:Maximum HR achieved. Echocardiogram images were performed. Echo results All wall segments im proved contractility and became hyperdynamic post exercise. There was thus no echocardiographic evidence of ischemia. Conclusion No echocardiographic evidence of ischemia Recommendation f/u with Dr Cherry Physician Neeta Cherry M.D., F .A.C.C. Supervision Chris Montano RN Scan done in [facility] CARDIAC CATH TEST ORDERED: 05/28/21 [facility] INDICATION: ABNORMAL STRESS TEST HEMODYNAMICS: After written inform ed consent was obtained rigth groin anesthetized with 2% xylocaine. using a modified seldinger technique 4f sheath right DOCK CLERK. JL4.5 used for left coronary angio then exchanged for AL1 which was used for right coronary angiography. RCA was felt to be culprit vessel . sheath exchanged for 6f sheath.7000u heparin given 6f al1 sh guide used to cannulate rca. choice pt wire advanced distally --> 2.5x15 trek to predilated --> xience 3.5x28 post dilated with 3.5x15 nc--> edge dissection present stented with 3.5x23 and then and additional 3.5x12 stent . camilla 3 flow < 10% residual wires removed and final images obtained. 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 Progress Notes * ANTELMO BLANC MDOB:1945 (78 yo M)Acc No.[id number]:02/09/2024 Patient:?ANTELMO BLANC Provider:?Neeta Cherry MD :1945???Age:78 Y???Sex:Male Chavez e:02/09/2024 Address:[address], [facility] Pcp:NO PCP NO PCP Subjective: * Chief Complaints: * ???11MOZULEYKA/DILIP * HPI: ???CARDIOLOGY HPI. jf:?78 yo male here has not needed ntg. walking mostly . no sob . No CP, SOB, Orthopnea, PND, Syncope, dizziness, palpitations, claudication. * ROS:?Respiratory:?no?shortness of breath.?no?cough.?no?sputum production.?no?wheezing.?no?hemoptysis.?Cardiology:?chest pain?yes.?no?palpitations.?no?leg edema.?no?dizziness.?no?shortness of breath.?no?syncope.?no?orthopnea.?no?PND.?no?claudication.?Constitutional:?no?weight gain.?no?loss of appetite.?no?fever.?no?weakness.?no?weight loss.?fatigue? yes.?no?night sweats.?no?cold intolerance.?no?heat intolerance.?Musculoskeletal:?no?joint swelling.?no?joint pain.?no?leg cramps.?no?joint stiffness.?back pain?no .?Neurology:?no?headache.?no?tingling numbness.?no?seizures.?no?gait abnormality.?no?TIA.?no?Tremors.?reviewed ros in detail from checklist, no other pertinent positives noted. reviewed ros in detail from checklist, no other pertinent positives noted. * Medical History:? * Surgical History:?afibb abla tion cholecystectomy appendectomy carpal tunnel * Hospitalization/Major Diagno stic Procedure:?No Hospitalization History. * Family History:?Father: [place], [place].?Mother: .? * Social History:?General:?Tobacco use: no?Patient is a:?former smoker previous tobacco quit 20+ years ago 1/2ppd x20 years.?Alcohol: yes, social 1-2 day. * Medications:?Takingtimolol o phthalmic hemihydrate 0.25% solution 1 gtt in each affected eye 2 times a day finasteride 5 mg tablet 1 tab(s) orally once a day , Notes to Pharmacist: 25MGAspirin EC 81 mg delayed release tablet 1 tab(s) orally once a day Metoprolol Succinate ER 25 mg tablet, extended release TAKE 1 TABLET DAILY Plavix 75 mg tablet 1 tab(s) orally once a day Atorvastatin Calcium 20 mg tablet 1 tab(s) orally once a day Medication List reviewed and reconciled with the patientTaking timolol ophthalmic hemihydrate 0.25% solution 1 gtt in each affected eye 2 times a day Taking finasteride 5 mg tablet 1 tab(s) orally once a day , Notes to Pharmacist: 25MGTaking Aspirin EC 81 mg delayed release tablet 1 tab(s) orally once a day Taking Metoprolol Succinate ER 25 mg tablet, extended release TAKE 1 TABLET DAILY Taking Plavix 75 mg tablet 1 tab(s) orally once a day Taking Atorvastatin Calcium 20 mg tablet 1 tab(s) orally once a day Medication List reviewed and reconciled with the patient * Allergies:?N.K.D.A.no[Allerg ies Verified] Objective: * Vitals:?HR: 58, BP: 140/80, Ht: 71, Wt: 192, BMI: 26.78, Oxygen %: 97. * Examination: ???General examination: ?General appearance:?NAD.?HEENT:?normal.?Neck, :?supple, no bruit.?Heart?normal S1S2 , Regular rhythm.?Lungs:?no wheezes or crackles , clear to auscultation bilaterally.?Abdomen:?soft, NT/ND, BS present , normal bowel sounds.?Neurologic exam:?no focal signs , unremarkable.?Skin:?normal, no rash.?Extremities?no edema.? Assessment: * Assessment: 1.?Abnormal EKG - R94.31???2 .?Atherosclerotic heart disease of [place] coronary artery without angina pectoris - I25.10???3.?Elevated blood-pressure reading, without diagnosis of hypertension - R03.0??? Plan: * Treatment: 2.?Atherosclerotic heart dis ease of [place] coronary artery without angina pectoris? Notes: 1) ekg nsr nsst changes unchanges 2) stress echo ( april 2023) imaged independently reviewed no ischemia 3) Cardiac cath (05/2021) -- > cath showed 99% mid rca s/p xience 3.5x28, xience 3.5x23, xience 3.5x12 mya mid rca 4) plavix/asa ok to alternate 5) cont statin 6) tchol 110 ldl 46 hdl 42 tg 110?? 3.?Elevated blood-pressure r eading, without diagnosis of hypertension? Notes: 1) low sodium diet 2) exercise 3) wt loss 4) bp stable at present not on meds 5) advised to call with results if persistently in 150-160s would start arb ?? 4.?Others? Notes: Pt was advised that he/she should follow up with their PCP for routine wellness check.?? * Procedures:?str STRESS ECHOCARDIOGRAM :?Indication?see assessment.?ETT/EKG?Patient exercised for 06:08 minutes on treadmill using amy protocol. Resting HR 76, peak HR was 138 BPM 97 % of 142 MPHR @ 7.0 mets. BP at rest 151/87 . BP at peak exercise 196/88 , BP in recovery 154/88. Baseline EKG shows NS with ST/T wave changes. Stress EKG: baseline ST/T wave abnormalities exacerbated, No arrythmias. No symptoms suggestive of angina. Reason for termination:Maximum HR achieved. Echocardiogram images were performed..?Echo results?All wall segments improved contractility and became hyperdynamic post exercise. There was thus no echocardiographic evidence of ischemia..?Conclusion?No echocardiographic evidence of ischemia.?Recommendation?f/u with Dr Cherry. Physician?Neeta Cherry M.D., F.A.C.C..?Supervision?Chris Montano RN.?Scan done in?[facility].?EKG:?EKG performed by: (time stamp)?Allison Gonzales MA.?Uploaded?EKG has been uploaded to patient docs and communicated with ordering provider..?Primary Machine Design Engineer:?Dr. Dilip VASQUES.?Interpretation findings:?nsr prwp early repol nsst changes?.?Interpreting Provider (time stamp)?Neeta Cherry 02/09/2024 10:32:08 AM EST >.?CARDIAC CATH:?TEST ORDERED:?05/28/21 [facility].?INDICATION:?ABNORMAL STRESS TEST?.?HEMODYNAMICS:?After written informed consent was obtained rigth groin anesthetized with 2% xylocaine. using a modified seldinger technique 4f sheath right DOCK CLERK. JL4.5 used for left coronary angio then exchanged for AL1? which was used for right coronary angiography. RCA was felt to be culprit vessel . sheath exchanged for 6f sheath.7000u heparin given??6f al1 sh guide used to cannulate rca. choice pt wire advanced distally 2.5x15 trek to predilated xience 3.5x28 post dilated with 3.5x15 nc edge dissection present stented with 3.5x23 and then and additional 3.5x12 stent . camilla 3 flow < 10% residual wires removed and final images obtained. 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 * Imaging:? * ?Imaging: EKG ([id number]) * Procedure Codes:?88865 EKG * Preventive Medicine:? ??Counseling:?BP Managment?LIFESTYLE RECOMMENDATION:?Hypertension education,?PHYSICAL ACTIVITY RECOMMENDATION:?Exercise education,?DIETARY RECOMMENDATIONS:?Diet education.?Patient Education?Patient education materials given:?Yes.? * Follow Up:?1 year (oct / 2024) * * Sign off status: Completed true * Provider:?Neeta Cherry MD Date:?02/09/20 24 Generated for Printi ng/Falyricg/eTransmitting on:?07/16/2024 12:51 PM EDT History and Physical Notes * HPI (History of Present Illness) Category Sub-Category Detail Notes Category Not es CARDIOLOGY HPI. jf 78 yo mal e here has not needed ntg. walking mostly . no sob . No CP, SOB, Orthopnea, PND, Syncope, dizziness, palpitations, claudication Examination Category Sub-Category Detail Notes Category Not es General examination HEENT: normal Neck, : supple, no bruit Heart normal S1S2 , Regula r rhythm Lungs: no wheezes or crackl es , clear to auscultation bilaterally Abdomen: soft, NT/ND, BS pres ent , normal bowel sounds General appearance: NAD Skin: normal, no rash Neurologic exam: no focal signs , unr emarkable Extremities no edema
--- OUTSIDE RECORDS SUMMARY | 2024-07-16 12:51 | XMS_ITS ---
Author Organization Phan Orlando III, MD Address [address] [place] [address] [place] [address] Care Team Providers Care Tig Welder Name Role Phone Phan Orlando Primary Care Provider Results Component Value Reference Range Notes DANNY Reviewed date:09/14/2023 09:20:25 AM Interpretation: Performing Lab: Notes/Report: Result Positive REASON FOR VISIT Results Social History Sex Assigned At : Social History Observation Description Sex Assigned At Male Encounters Encounter Location Date Provider Diagnosis Phan Orlando III, MD [address] [place] [address] [place] [address] 09/14/2023 Phan Orlando Encounter for screening for malignant neoplasm of colon Z12.11 Assessments Encounter Date Diagnosis (ICD Code) Assessment Notes Treatment Notes Treatment Clinical Notes 09/14/2023 Encounter for screening for malignant neoplasm of colon (ICD-10 - Z12.11) Plan Of Treatment Next Appt Details Provider Name:Phan Orlando, 08/05/2024 02:00:00 PM, [address] [place] [address] [place], [address], Progress Notes * ANTELMO SZYMANSKI MDOB:1945 (78 yo M)Acc No.[id number]:09/14/2023 Patient:?ANTELMO SZYMANSKI :1945???Age:78 Y???Sex:Male Address:[address] [place] [address] , [place], [address] Subjective: * Chief Complaints: * ???Results * Medical History:? * Surgical History:? * Hospitalization/Major Diagno stic Procedure:? * Medications:? Objective: Assessment: * Assessment: 1.?Encounter for screening f or malignant neoplasm of colon - Z12.11? Plan: * Treatment: ? Value Reference Range ?Result Positive * Procedure Codes:? * true * Date:? Generated for Nacho goyal/Esteban/eTransmitting on:?07/16/2024 12:50 PM EDT
--- OUTSIDE RECORDS SUMMARY | 2024-07-16 12:51 | XMS_ITS ---
Author Organization [facility] Address [address] [place] [address] Care Team Providers Care Ems Driver Name Role Phone Johanny VASQUES, Phan Primary Care Provider Unavailab Phan Alvarez Unavailable [phone] REASON FOR VISIT ? able to move procedure to 1:00 on 11/22? Encounters Encounter Location Date Provider Diagnosis [facility] [address] [place] [address] 11/13/2023 Phan Daily Plan Of Treatment No Information Progress Notes * ANTELMO BLANC MDOB:1945 (78 yo M)Acc No.[id number]:11/13/2023 Patient:?ANTELMO BLANC :1945???Age:78 Y???Sex:Male Address:[address] [place] [address] * true * Date:? Generated for Printi jyotsna/Esteban/eTransmitting on:?07/16/2024 12:51 PM EDT
--- OUTSIDE RECORDS SUMMARY | 2024-07-16 12:51 | XMS_ITS | Patient Health Record ---
Author Organization [facility] Address [address] [address] Care Team Providers Care Mechanical Maintenance Supervisor Name Role Phone NO PCP, NO PCP Primary Care Provider Neeta Cole Unavailable [phone] Allergies No Known Allergies Reason For Referral No Information Medications Medication SIG (Take, Route, Frequency, Duration) Notes Start Date End Date Status Atorvastatin Calcium 20 mg 1 tab(s) oral ly once a day for 90 days Active Plavix 75 mg 1 tab(s) orally once a day for 90 days Active timolol ophthalmic hemihydrate 0.25% 1 gtt in each affected eye 2 times a day Active finasteride 5 mg 1 tab(s) orally once a day for 30 day(s) 25MG Active Aspirin EC 81 mg 1 tab(s) orally once a day for 30 day(s) Active Metoprolol Succinate ER 25 mg TAKE 1 TABLET DAILY for 90 Active Social History Tobacco Use: Social History Observation Description Date Details (start date - stop date) Former Smoker NA - NA Tobacco use Question Answer Notes Patient is a: former smoker previous tobacco quit 20+ years ago 1/2ppd x20 years Problems Problem Type SNOMED Code ICD Code Onset Dates Problem Status W/U Status Risk Notes Problem [id number] Atherosclerotic heart disease of [place] coronary artery without angina pectoris (I25.10) Active confirmed Problem Chest pain (80333327) Chest pain, unspecified (R07.9) Active confirmed Problem 640905267 Anginal equivale nt (I20.8) Active confirmed Vital Signs Heart Rate 58 /min 02/09/2024 Blood pressure diastolic 80 mm Hg 02/09/2024 Oximetry 97 /min 02/09/2024 Height 71 in 02/09/2024 Blood pressure systolic 140 mm Hg 02/09/2024 Weight 192 lbs 02/09/2024 BMI 26.78 kg/m2 02/09/2024 Encounters Encounter Location Date Provider Diagnosis [facility] [address] [place] [address] 02/09/2024 Suedottie Dilip Abnormal EKG R94.31 ; Atherosclerotic heart disease of [place] coronary artery without angina pectoris I25.10 and Elevated blood-pressure reading, without diagnosis of hypertension R03.0 Assessments Encounter Date Diagnosis (ICD Code) Assessment Notes Treatment Notes Treatment Clinical Notes Section Notes 02/09/2024 Abnormal EKG (ICD-10 - R94.31) 1) EKG SR PRWP early repol NSST changes 2)EKG: SR with ST depression in stress echo EKGs 02/09/2024 Atherosclerotic heart disease of [place] coronary artery without angina pectoris (ICD-10 - [...] for routine wellness check. Plan Of Treatment Pending Test Test Name Order Date EKG ([id number]) 02/02/2023 EKG ([id number]) 02/09/2024 EKG 05/07/2021 Next Appt Details Provider Name:Suedottie Cherry, 1 03/11/2024 10:00:00 AM, [address], [place], [address], Insurance Providers Payer Name Payer Address Payer Phone Subscriber Number Group Number Insured Name Patient Relationship to Insured Coverage Start Date Coverage End Date Medicare Part B [address] [address] [place] [phone] [id number] ANTELMO BLANC Self - patient is the insured [facility] [address] [address] [place] [address] [phone] [id number] ANTELMO BLANC Self - patient is the insured Medical (General) History Medical History History ICD Code CAD s/p desx3 RCA xience 3.5x28, xience 3.5x23 , xience 3.5x12 prostate ca glaucoma hx of afibb s/p ablation many years ago Surgical History Surgery Date(Month/Year) afibb ablation cholecystectomy appendectomy carpal tunnel
--- OUTSIDE RECORDS SUMMARY | 2024-07-16 12:51 | XMS_ITS ---
Author Organization [facility] Address [address] [place] [address] Care Team Providers Care Cloth Spreader Name Role Phone Phan Orlando MD Primary Care Provider Unavailab Phan Alvarez Unavailable [phone] Allergies No Known Allergies REASON FOR VISIT Patient presents today for a COLON RECALL/ POSITIVE STOOL Medications Medication SIG (Take, Route, Frequency, Duration) Notes Start Date End Date Status Clopidogrel Bisulfate 75 MG Oral for 90 Active Atorvastatin Calcium 20 MG Oral for 90 Active Aspirin EC 325mg Active Metoprolol Succinate ER 25 MG Oral for 90 Active Finasteride 5 MG Oral for 90 A ctive Tadalafil 20 MG TAKE 1 TABLET BY RYAN ONCE A DAY Oral for 30 Active Social History Tobacco Use: Social History Observation Description Date Details (start date - stop date) Never Smoker NA - NA Tobacco Use/Smoking Question Answer Notes Patient is a nonsmoker Alcohol Screen Question Answer Notes Did you have a drink contain ing alcohol in the past year? Yes Points 4 Interpretation Positive How often did you have 6 or more drinks on one occasion in the past year? Never (0 point) How many drinks did you have on a typical day when you were drinking in the past year? 1 or 2 drinks (0 point) How often did you have a dri nk containing alcohol in the past year? 4 or more times a week (4 points) Section Notes: Nonsmoker; occasional alcoho l Problems Problem Type SNOMED Code ICD Code Onset Dates Problem Status W/U Status Risk Notes Problem Positive colorectal cancer screening using Cologuard test (R19.5) Active confirmed Problem History of adenomatous polyp of colon (250886256) History of adenomatous polyp of colon (Z86.010) Active confirmed Vital Signs Blood pressure systolic 00 mm Hg 11/07/19 24 Blood pressure diastolic 00 mm Hg 024 Height 71 in 11/07/2023 Weight 198 lbs 11/07/2023 BMI 27.61 kg/m2 11/07/2023 Encounters Encounter Location Date Provider Diagnosis [facility] [address] [place] [address] 11/07/2023 Phan Daily Positive colorectal cancer screening using Cologuard test R19.5 and History of adenomatous polyp of colon Z86.010 Assessments Encounter Date Diagnosis (ICD Code) Assessment Notes Treatment Notes Treatment Clinical Notes Section Notes 11/07/2023 Positive colorectal cancer screening using Cologuard test (ICD-10 - R19.5) Stop Clopidogrel for 5 days before the colonoscopy Do not take any aspirin on the morning of the colonoscopy Will try to get a letter from your [place] application infrastructure engineer Overall, Fredi appears well. Given his previous history of tubular adenomas, his last colonoscopy being over 10 years ago, and the recent positive Cologuard test, I did recommend he undergo a colonoscopy for further evaluation. We did review the rationale for that in regard to colorectal cancer prevention and/or early detection. He is leaving for [place] on November 29 and will not be returning until June. Therefore, I shall try to find a spot to do his procedure before he leaves in a few weeks. I have given him the below instructions regarding adjustment of his medications for the procedure and will obtain a note from his application infrastructure engineer in [place] as well. Given his negative stress test earlier this year and his excellent clinical appearance and history, I do think he is quite medically stable for the procedure. Fredi is comfortable with this plan. Thank you again for allowing me to participate in Fredi's care. I shall continue to keep you advised of his progress. 11/07/2023 History of adenomatous polyp of colon (ICD-10 - Z86.010) Overall, Fredi appears well. Given his previous history of tubular adenomas, his last colonoscopy being over 10 years ago, and the recent positive Cologuard test, I did recommend he undergo a colonoscopy for further evaluation. We did review the rationale for that in regard to colorectal cancer prevention and/or early detection. He is leaving for [place] on November 29 and will not be returning until June. Therefore, I shall try to find a spot to do his procedure before he leaves in a few weeks. I have given him the below instructions regarding adjustment of his medications for the procedure and will obtain a note from his application infrastructure engineer in [place] as well. Given his negative stress test earlier this year and his excellent clinical appearance and history, I do think he is quite medically stable for the procedure. Fredi is comfortable with this plan. Thank you again for allowing me to participate in Fredi's care. I shall continue to keep you advised of his progress. Plan Of Treatment Treatment Notes Assessment Notes Positive colorectal cancer s creening using Cologuard test Stop Clopidogrel for 5 days before the colonoscopy Do not take any aspirin on the morning of the colonoscopy Will try to get a letter from your [place] application infrastructure engineer Future Test Test Name Order Date COLONOSCOPY 11/07/2023 Next Appt Details Follow Up: prn, Reason: Progress Notes * ANTELMO BLANC MDOB:1945 (78 yo M)Acc No.[id number]:11/07/2023 Progress Notes Patient:?ANTELMO BLANC Provider:?Phan Daily MD :1945???Age:78 Y???Sex:Male Chavez e:11/07/2023 Address:[address] [place] [address] Pcp:Phan Orlando MD Subjective: * Chief Complaints: * ???Patient presents today fo r a COLON RECALL/ POSITIVE STOOL * HPI: ???incontinence:? I saw Fredi in the office today for evaluation of a positive Cologuard test and previous history of tubular adenomas of the colon. ?I last saw Fredi in 2011, at which time he underwent a followup screening colonoscopy with removal of small tubular adenomas. He also had a small tubular adenoma removed in 2006. He has not had a colonoscopy since 2011. As you know, he did turn in a Cologuard test in July and this was returned as positive. ?He currently feels very well. He enjoys a good appetite, without any significant heartburn or dysphagia. His bowel movements have been regular and without any signs of bleeding. He denies abdominal pain, jaundice, nor unintentional weight loss. He denies any known family history colorectal cancer. ?Laboratories in June revealed a normal CBC, normal chemistries, and normal LFTs. * ROS:?General/Constitutional:?Change in appetite?denies.?Chills?denies.?Fatigue?denies.?Ophthalmologic:?Patient denies? Negative..?ENT:?Patient denies?Negative..?Respiratory:?Patient denies?No coughing/hemoptysis..?Cardiovascular:?Patient denies? No chest pain/orthopnea..?Gastrointestinal:?Comments?See HPI for details.?Genitourinary:?Patient denies? No dysuria/hematuria..?Musculoskeletal:?Patient denies? No specific arthralgias/myalgias..?Skin:?Patient denies?No rash/pruritus..?Neurologic:?Patient denies? No headaches/seizures..?Psychiatric:?Patient denies?Negative..? * Medical History:? * Surgical History:?Appy Knee surgery CCY Bilateral carpal tunnel Trigger fingers * Hospitalization/Major Diagno stic Procedure:?No Hospitalization History. * Family History:?Father: dece ased.?Mother: , mother of colon cancer at the age of 90,no other family hx of colorectal cancer or polyps.? * Social History:?Tobacco Use:?Tobacco Use/Smoking?Patient is a?nonsmoker.?Drugs/Alcohol:?Alcohol Screen?Did you have a drink containing alcohol in the past year??Yes,?How often did you have 6 or more drinks on one occasion in the past year??Never (0 point),?How many drinks did you have on a typical day when you were drinking in the past year??1 or 2 drinks (0 point),?How often did you have a drink containing alcohol in the past year??4 or more times a week (4 points),?Points?4,?Interpretation?Positive.?Miscellaneous:?Marital status: . Occupation: retired. ???Nonsmoker; occasional alcohol. * Medications:?TakingAspirin E C , Notes: 325mgMetoprolol Succinate ER 25 MG Tablet Extended Release 24 Hour Oral Finasteride 5 MG Tablet Oral Tadalafil 20 MG Tablet TAKE 1 TABLET BY MOUTH ONCE A DAY Oral Clopidogrel Bisulfate 75 MG Tablet Oral Atorvastatin Calcium 20 MG Tablet Oral Taking Aspirin EC , Notes: 325mgTaking Metoprolol Succinate ER 25 MG Tablet Extended Release 24 Hour Oral Taking Finasteride 5 MG Tablet Oral Taking Tadalafil 20 MG Tablet TAKE 1 TABLET BY MOUTH ONCE A DAY Oral Taking Clopidogrel Bisulfate 75 MG Tablet Oral Taking Atorvastatin Calcium 20 MG Tablet Oral DiscontinuedTimoptic Xalatan Colyte with Flavor Packs 240 GM Solution Reconstituted As directed Orally Once a dayMedication List reviewed and reconciled with the patientDiscontinued Timoptic Discontinued Xalatan Discontinued Colyte with Flavor Packs 240 GM Solution Reconstituted As directed Orally Once a dayMedication List reviewed and reconciled with the patient * Allergies:?N.K.D.A.yes[Aller gies Verified] Objective: * Vitals:?Wt: 198 lbs, Ht: 71 in, BMI:27.61 Index, BP: 00/00 mm Hg. * Examination: ???General Examination: ?GENERAL APPEARANCE:?pleasant, well nourished, well developed, in no acute distress.?EYES:?sclera non-icteric.?ORAL CAVITY:?mucosa moist.?NECK/THYROID:?no cervical lymphadenopathy, neck supple.?SKIN:?nonjaundiced, no spider angiomata..?HEART:?S1, S2 normal.?LUNGS:?clear to auscultation bilaterally.?ABDOMEN:?normal bowel sounds, no guarding or rigidity, no hepatosplenomegaly, no masses palpable, soft, nontender, nondistended..?EXTREMITIES:?no edema.?NEUROLOGIC:?alert and oriented.? Assessment: * Assessment: 1.?Positive colorectal cance r screening using Cologuard test - R19.5 (Primary)?2.?History of adenomatous polyp of colon - Z86.010? Overall, Fredi appears well. G iven his previous history of tubular adenomas, his last colonoscopy being over 10 years ago, and the recent positive Cologuard test, I did recommend he undergo a colonoscopy for further evaluation. We did review the rationale for that in regard to colorectal cancer prevention and/or early detection. He is leaving for [place] on November 29 and will not be returning until June. Therefore, I shall try to find a spot to do his procedure before he leaves in a few weeks. I have given him the below instructions regarding adjustment of his medications for the procedure and will obtain a note from his application infrastructure engineer in [place] as well. Given his negative stress test earlier this year and his excellent clinical appearance and history, I do think he is quite medically stable for the procedure. Fredi is comfortable with this plan. Thank you again for allowing me to participate in Fredi's care. I shall continue to keep you advised of his progress. Plan: * Treatment: Notes: Stop Clopidogrel for 5 days before the colonoscopy Do not take any aspirin on the morning of the colonoscopy Will try to get a letter from your [place] application infrastructure engineer?? * Procedure Codes:?1036F TOBAC CO [id number]-[id number] BP SCR NOT PRFRM REC REASON NOS * Preventive Medicine:? ??Screenings:?Fall Risk Screening?Fall Risk Assessment:?No falls in the past year,?Assessment:?Not performed, no reason specified.? * Follow Up:?prn * * Sign off status: Completed true * Provider:?Phan Daily MD Date:? 024 Generated for Nacho goyal/Esteban/Kiah on:?07/16/2024 12:51 PM EDT History and Physical Notes * HPI (History of Present Illness) Category Sub-Category Detail Notes Category Not es incontinence I saw Fredi in the office today for evaluation of a positive Cologuard test and previous history of tubular adenomas of the colon. I last saw Fredi in 2011, at which time he underwent a followup screening colonoscopy with removal of small tubular adenomas. He also had a small tubular adenoma removed in 2006. He has not had a colonoscopy since 2011. As you know, he did turn in a Cologuard test in July and this was returned as positive. He currently feels very well. He enjoys a good appetite, without any significant heartburn or dysphagia. His bowel movements have been regular and without any signs of bleeding. He denies abdominal pain, jaundice, nor unintentional weight loss. He denies any known family history colorectal cancer. Laboratories in June revealed a normal CBC, normal chemistries, and normal LFTs. Examination Category Sub-Category Detail Notes Category Not es General Examination GENERAL APPEARANCE: pleasant , well nourished, well developed, in no acute distress EYES: sclera non-icteric NECK/THYROID: no cervical lymphade nopathy, neck supple HEART: S1, S2 normal LUNGS: clear to auscultatio n bilaterally ABDOMEN: normal bowel sounds, no guarding or rigidity, no hepatosplenomegaly, no masses palpable, soft, nontender, nondistended. NEUROLOGIC: alert and oriented SKIN: nonjaundiced, no spi rahel angiomata. EXTREMITIES: no edema ORAL CAVITY: mucosa moist
--- OUTSIDE RECORDS SUMMARY | 2024-07-16 12:51 | XMS_ITS ---
Author Organization [facility] Address [address] [place] [address] Care Team Providers Care Training And Development Coordinator Name Role Phone NO PCP, NO PCP Primary Care Provider Neeta Cole Unavailable [phone] REASON FOR VISIT BP log Encounters Encounter Location Date Provider Diagnosis [facility] [address] [place] [address] 06/02/2023 Neeta Cherry Plan Of Treatment Next Appt Details Provider Name:Neeta Cherry, 1 03/11/2024 10:00:00 AM, [address], [address], [place], [address], Progress Notes * ANTELMO BLANC MDOB:1945 (78 yo M)Acc No.[id number]:06/02/2023 Patient:?ANTELMO BLANC :1945???Age:78 Y???Sex:Male Address:[address] [place] [address] * true * Date:? Generated for Printi ng/Falyricg/eTransmitting on:?07/16/2024 12:50 PM EDT
--- OUTSIDE RECORDS SUMMARY | 2024-07-16 12:51 | XMS_ITS ---
Author Organization [facility] Address [address] [place] [address] Care Team Providers Care Tool And Die Repair Name Role Phone NO PCP, NO PCP Primary Care Provider Neeta Cole [phone] REASON FOR VISIT TESTFUPepe/ERIC Medications Medication SIG (Take, Route, Frequency, Duration) Notes Start Date End Date Status finasteride 5 mg 1 tab(s) orally once [...] affected eye 2 times a day Active Social History Tobacco Use: Social History Observation Description Date Details (start date - stop date) Former Smoker NA - NA Tobacco use Question Answer Notes Patient is a: former smoker previous tobacco quit 20+ years ago 1/2ppd x20 years Vital Signs Heart Rate 70 /min 05/08/2023 Blood pressure systolic 140 mm Hg 05/08/19 24 Blood pressure diastolic 80 mm Hg 024 Height 71 in 05/08/2023 Weight 205 lbs 05/08/2023 BMI 28.59 kg/m2 05/08/2023 Encounters Encounter Location Date Provider Diagnosis [facility] [address] [place] [address] 05/08/2023 Neeta Cherry Abnormal EKG R94.31 ; Atherosclerotic heart disease of [place] coronary artery without angina pectoris I25.10 and Elevated blood-pressure reading, without diagnosis of hypertension R03.0 Assessments Encounter Date Diagnosis (ICD Code) Assessment Notes Treatment Notes Treatment Clinical Notes Section Notes 05/08/2023 Abnormal EKG (ICD-10 - R94.31) EKG: SR with ST depression in stress echo EKGs 05/08/2023 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 I will review these readings to determine if additional BP intervention is needed. 5) advised to call with results if persistently in 150-160s would start arb 05/08/2023 Other Pt was advised that he/she should follow up with their PCP for routine wellness check. Plan Of Treatment Treatment Notes Assessment Notes Abnormal EKG EKG: SR with ST depr ession in stress echo EKGs Atherosclerotic heart diseas e of [place] coronary artery without angina pectoris 1) ekg nsr nsst changes unchanges 2) stress echo ( april 2023) --> imaged independently reviewed no ischemia 3) Cardiac cath (05/2021) -- > cath showed 99% mid rca s/p xience 3.5x28, xience 3.5x23, xience 3.5x12 mya mid rca 4) plavix/asa ok to alternate 5) cont statin Elevated blood-pressure read ing, without diagnosis of hypertension 1) low sodium diet 2) exercise 3) wt loss 4) Keep a BP log over the next several weeks. I will review these readings to determine if additional BP intervention is needed. 5) advised to call with results if persistently in 150-160s would start arb Other Pt was advised that he/she should follow up with their PCP for routine wellness check. Next Appt Details Follow Up: jan 2024, Reason: Provider Name:Neeta Cherry, 1 03/11/2024 10:00:00 AM, [address], [address], [place], [address], Procedure Notes * Category Sub-Category Detail Notes STRESS ECHOCARDIOGRAM Indicati on see assessment ETT/EKG [...] Supervision Chris Montano RN Scan done in [facility] CARDIAC CATH TEST ORDERED: 05/28/21 [facility] INDICATION: ABNORMAL STRESS TEST HEMODYNAMICS: After written inform ed consent was obtained rigth groin anesthetized with 2% xylocaine. using a modified seldinger technique 4f sheath right RANGE EXAMINER. 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 jf:? 78 yo male here for testing fu SE no ischemia No CP, SOB, Orthopnea, PND, Syncope, dizziness, palpitations, claudication. * Medical History:? * Surgical History:?afibb abla tion cholecystectomy appendectomy carpal tunnel * Hospitalization/Major Diagno stic Procedure:?No Hospitalization History. * Family History:?Father: dece ased, [place].?Mother: .? * Social History:?General:?Tobacco use: no?Patient is [...] reviewed and reconciled with the patient * Allergies:?no[Allergies Veri fied] Objective: * Vitals:?HR:70, BP:140/80, Ht : 71, Wt: 205, BMI: 28.59. * Examination: ???General examination: ?General appearance:?NAD.?HEENT:?normal.?Neck, :?supple, no bruit.?Heart?normal S1S2 , Regular rhythm.?Lungs:?no wheezes or crackles , clear to auscultation bilaterally.?Abdomen:?soft, NT/ND, BS present , normal bowel sounds.?Neurologic exam:?no focal signs , unremarkable.?Skin:?normal, no rash.?Extremities?no edema.? Assessment: * Assessment: 1.?Abnormal EKG - R94.31?2.? 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 Plan: * Treatment: 2.?Atherosclerotic heart dis ease of [place] coronary artery without angina pectoris? Notes: 1) ekg nsr nsst changes unchanges 2) stress echo ( april 2023) imaged independently reviewed no ischemia 3) Cardiac cath (05/2021) -- > cath showed 99% mid rca s/p xience 3.5x28, xience 3.5x23, xience 3.5x12 mya mid rca 4) plavix/asa ok to alternate 5) cont statin?? 3.?Elevated blood-pressure r eading, without diagnosis of hypertension? Notes: 1) low sodium diet 2) exercise 3) wt loss 4) Keep a BP log over the next several weeks. I will review these readings to determine if additional BP intervention is needed. 5) advised to call with results if [...] Physician?Neeta Cherry M.D., F.A.C.C..?Supervision?Chris Montano RN.?Scan done in?[place] office.?CARDIAC CATH:?TEST ORDERED:?05/28/21 [facility].?INDICATION:?ABNORMAL STRESS TEST?.?HEMODYNAMICS:?After written informed consent was obtained rigth groin anesthetized with 2% xylocaine. using a modified seldinger technique 4f sheath right RANGE EXAMINER. 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 * Procedure Codes:? * Follow Up:?jan 2024 * * Sign off status: Completed true * Provider:?Neeta Cherry MD Date:?05/08/19 24 Generated for Nacho goyal/Esteban/Cesarsmitting on:?07/16/2024 12:50 PM EDT History and Physical Notes * HPI (History of Present Illness) Category Sub-Category Detail Notes Category Not es CARDIOLOGY HPI. jf 78 yo mal e here for testing fu SE no ischemia No CP, SOB, Orthopnea, PND, Syncope, dizziness, [...]
--- OUTSIDE RECORDS SUMMARY | 2024-07-16 12:51 | XMS_ITS ---
Author Organization Phan Orlando III, MD Address [address] [place] [address] [place] [address] Care Team Providers Care Warehouse Shipping Receiving Clerk Name Role Phone Phan Orlando Primary Care Provider Reason For Referral Reason positive cologuard t est Diagnosis 1 Positive colorectal cancer screening using Cologuard test (R19.5) Referral Organization Phan Orlando III, MD Referring Provider First Name Phan Referring Provider Last Name Johanny Referring Provider Speciality Internal M edicine Referred Provider Phan Daily Referred Provider Specialty Gastroentero logy General Notes StGCathy brady CM A 09/13/2023 04:35:06 PM EDT > Called spoke to Charisse salvador patient appt with Dr Daily due to a positive cologuard test. Was given appt for 11/07/2023 at 2:40pm they will give information to Dr Daily to get patient a sooner appt . ref/progress note/positive cologuard test faxed to [phone] appt information mailed to patient Referral Priority Routine Referral Appointment Date 11/07/2023 REASON FOR VISIT Cologuard positive Social History Sex Assigned At : Social History Observation Description Sex Assigned At Male Encounters Encounter Location Date Provider Diagnosis Phan Orlando III, MD [address] [place] [address] [address] [facility] [address] 09/13/2023 Phan Orlando Plan Of Treatment Referrals Referral Date Details 09/13/2023 09/13/2023, positive cologuard test , Phan Daily Next Appt Details Provider Name:Phan Orlando, 08/05/2024 02:00:00 PM, [address] [place] [address] [address] [address], [place], [address], Progress Notes * ANTELMO SZYMANSKI MDOB:1945 (78 yo M)Acc No.[id number]:09/13/2023 Patient:?SZYMANSKIANTELMO Ness :1945???Age:78 Y???Sex:Male Address:[address] [place] [address] , [place], [address] Subjective: * Chief Complaints: * ???Cologuard positive * Medical History:? * Surgical History:? * Hospitalization/Major Diagno stic Procedure:? * Medications:? Objective: Assessment: Plan: * Treatment: * Procedure Codes:? * true * Date:? Generated for Nacho goyal/Esteban/eTransmitting on:?07/16/2024 12:51 PM EDT Consultation Request Notes Referral Date Referring Provider Referred Provider Not es 09/13/2023 Phan Orlando Robert positive colo guard test
--- OUTSIDE RECORDS SUMMARY | 2024-07-16 12:52 | XMS_ITS | Clinical Summary ---
Author Organization [facility] Address [address] [place] [address] Care Team Providers Care Glass Decorator Name Role Phone Unavailable Primary Care Provider Unavailabl e Social History Tobacco Use Types Packs/Day Years Used Date Smoking Tobacco: Never Assessed Sex and Gender Information Value Date Recorded Sex Assigned at Not on file Legal Sex Male 6:13 PM EST Gender Identity Not on file Sexual Orientation Not on file Plan of Treatment Health Maintenance Due Date Last Done Comments Hepatitis C Virus Screening 1945 DTaP/Tdap/Td Vaccines (1 - Tdap) 1964 Pneumococcal Vaccines 50+ (1 of 1 - PCV) 1995 Zoster (Shingles) Vaccine (1 of 2) 1995 RSV Vaccine 60 years and old er and Patients (1 - 1-dose 75+ series) 2020 COVID-19 Vaccine ( - 2023-2 5 season) 2023 Hepatitis B Vaccines Aged Out No long er eligible based on patient's age to complete this topic
--- OUTSIDE RECORDS SUMMARY | 2024-07-16 12:52 | XMS_ITS | Patient Health Record ---
Author Organization [facility] Address [address] [place] [address] Care Team Providers Care Operations Superintendent Name Role Phone Phan Orlando MD Primary Care Provider Unavailab Phan Alvarez Unavailable [phone] Allergies No Known Allergies Results Component Value Reference Range Notes Pathology (Not yet reviewed by provider) Interpretation: Performing Lab:[facility], [address] [place] [id number] Notes/Report: Name: Antelmo Szymanski ge/Sex: 78/M : 1945 Unit#: [id number] Attend Dr: Phan Daily MD Re11/23/23 Status : [facility] Location: [facility] [[email or web address] Disch: SPEC : [id number] RECD : 11/23/23 STATUS: CAROLYN BELL NUM: [id number] JUNIOR: 11/23/[address] [facility] [address]: Phan Daily MD ENTERED: 11/23/23-14 43 SP TYPE: Surgical OTHR DR: Phan Orlando MD ORDERED: HE Stain/12 , Gross Micro L4/4 Diagnosis A. Colon, 50 cm, edgar ypectomy: Tubular adenoma; negative for high-grade dysplasia or carcinoma. B. Cecum, polypectom y: Fragments of tubular adenoma; negative for high-grade dysplasia or carcinoma. D. Colon, ascending, polypectomy: Tubular adenoma; negative for high-grade dysplasia or carcinoma. D. Rectum, polypecto mies: Fragments of tubular adenomata; negative for high-grade dysplasia or carcinoma. Clinical History Pre-Op Dx: Screening Post-Op Dx: Colon po lyps, diverticulosis, hemorrhoids Microscopic Description A-D. Microscopic sec tions reviewed. Material Received A. Polyp at 50 B. Cecal polyp C. Ascending colon polyp D. Rectal polyps Gross Description Received in four parts. Part A: Received in formalin labeled ?polyp at 50? is a 0.3 cm gr-pink irregular tissue fragment, submitted in toto in a cassette labeled A. Part B: Received in formalin labeled ?cecal polyp? is a 0.25 cm gr-pink irregular tissue fragment, submitted in toto in a cassette labeled B. Part C: Received in formalin labeled ?ascending colon polyp? is a 0.25 cm gr-pink irregular tissue fra gment, submitted in toto in a cassette labeled C. Part D: Received in formalin labeled ?rectal polyp? are 2 hyperemic and congested, pink-red CONTINUED ON NEXT PAGE Name: Antelmo Szymanski Brandon ge/Sex: 78/M : 1945 Unit#: [id number] Attend Dr: Phan Daily MD Re11/23/23 Status : [facility] [place] Location: [facility] Disch: SPEC : [id number] RECD : 11/23/23-1441 STATUS: CAROLYN BELL NUM: [id number] JUNIOR: 11/23/23-[address] [facility] [address]: Phan Daily MD ENTERED: 11/23/23- 43 SP TYPE: Surgical OTHR DR: Phan Orlando MD ORDERED: HE /12 , Gross Micro L4/4 Gross Description (Continued) papular tissue fragm ents each measuring 0.6 cm, submitted in toto in a cassette labeled D. CEDS Copies To: Phan Orlnado MD [address] [place] [address] Drive, [address] [place], [place] [id number] Phan Daily MD [facility] [address] [place] [address] Signed (si gnature on file) John Miller MD 11/24/23 1438 END OF REPORT Reason For Referral No Information Medications Medication SIG (Take, Route, Frequency, Duration) Notes Start Date End Date Status Aspirin EC 325mg Active Metoprolol Succinate ER 25 MG Oral for 90 Active Finasteride 5 MG Oral for 90 A ctive Tadalafil 20 MG TAKE 1 TABLET BY RYAN TH ONCE A DAY Oral for 30 Active Clopidogrel Bisulfate 75 MG Oral for 90 Active Atorvastatin Calcium 20 MG Oral for 90 Active Problems Problem Type SNOMED Code ICD Code Onset Dates Problem Status W/U Status Risk Notes Problem History of adenomatous polyp of colon (061521992) History of adenomatous polyp of colon (Z86.010) Active confirmed Problem Diverticular disease of colon (995832596) Diverticulosis of large intestine without perforation or abscess without bleeding (K57.30) Active confirmed Problem Abnormal feces (428161241) Positive colorectal cancer screening using Cologuard test (R19.5) Active confirmed Vital Signs Blood pressure diastolic 00 mm Hg 11/07/2023 Height 71 in 11/07/2023 Blood pressure systolic 00 mm Hg 11/07/2023 Weight 198 lbs 11/07/2023 BMI 27.61 kg/m2 11/07/2023 Encounters Encounter Location Date Provider Diagnosis [facility] [address] [place] [id number] 11/23/2023 Phan Daily Colon cancer screeni ng Z12.11 ; Colon polyps K63.5 ; Heme positive stool R19.5 ; Diverticulosis of large intestine without perforation or abscess without bleeding K57.30 and Other hemorrhoids K64.8 [facility] [address] [place] [phone] 11/07/2023 Phan Daily Positive colorectal cancer screening using Cologuard test R19.5 and History of adenomatous polyp of colon Z86.010 [facility] [address] [place] [phone] 11/13/2023 Phan Daily Assessments Encounter Date Diagnosis (ICD Code) Assessment Notes Treatment Notes Treatment Clinical Notes Section Notes 11/23/2023 Colon cancer screening (ICD-10 - Z12.11) 11/23/2023 Colon polyps (ICD-10 - K63.5) 11/07/2023 History of adenomatous polyp of colon [...] and/or early detection. He is leaving for [place] on November 29 and will not be returning until June. Therefore, I shall try to find a spot to do his procedure before he leaves in a few weeks. 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 Given his negative stress test earlier this year and his excellent clinical appearance and history, I do think he is quite medically stable for the procedure. Fredi is comfortable with this plan. Thank you again for allowing me to participate in Fredi's care. I shall continue to keep you advised of his progress. 11/07/2023 Positive colorectal cancer screening using Cologuard test (ICD-10 - R19.5) Stop Clopidogrel for 5 days before the colonoscopy Do not take any aspirin on the morning of the colonoscopy Will try to get a letter from your [place] gas compressor turbine operator Overall, Fredi appears well. Given his previous history of tubular adenomas, his last colonoscopy being over 10 years ago, and the recent positive Cologuard test, I did recommend he undergo a colonoscopy for further evaluation. We did review the rationale for that in regard to colorectal cancer prevention and/or early detection. He is leaving for [place] on November 29 and will not be returning until June. Therefore, I shall try to find a spot to do his procedure before he leaves in a few weeks. 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 Given his negative stress test earlier this year and his excellent clinical appearance and history, I do think he is quite medically stable for the procedure. Fredi is comfortable with this plan. Thank you again for allowing me to participate in Fredi's care. I shall continue to keep you advised of his progress. 11/23/2023 Heme positive stool (ICD-10 - R19.5) 11/23/2023 Diverticulosis of large intestine without perforation or abscess without bleeding (ICD-10 - K57.30) 11/23/2023 Other hemorrhoids (ICD-10 - K64.8) Plan Of Treatment Pending Test Test Name Order Date Pathology 11/23/2023 Future Test Test Name Order Date COLONOSCOPY 08/04/2011 COLONOSCOPY 11/07/2023 Insurance Providers Payer Name Payer Address Payer Phone Subscriber Number Group Number Insured Name Patient Relationship to Insured Coverage Start Date Coverage End Date MEDICARE OF [place] [address] [place] [address] [phone] [id number] ANTELMO SZYMANSKI Self - patient is the insured [employer] ([employer]) [address] [place] [address] [phone] [id number] ANTELMO SZYMANSKI Self - patient is the insured Medical (General) History Medical History History ICD Code Colonoscopy 06-23-2006 small tubular trent omid removed Atrial fibrillation-resolved with cardia c ablation in [place] Glaucoma Denies SD,DM,CVA,Lung disease,renal dise ase Colonoscopy in 2011 with small tubular a denomas removed CAD-3 stents in RCA in 2021 in [place]. Had a neg ETT in 04/2023 in [place] BPH Surgical History Surgery Date(Month/Year) Appy Knee surgery [facility] Bilateral carpal tunnel Trigger fingers
--- OUTSIDE RECORDS SUMMARY | 2024-07-16 12:52 | XMS_ITS | Patient Health Record ---
Author Organization Phan Orlando III, MD Address [address] [place] [address] [address] [place] [address] Care Team Providers [employer] Name Role Phone Phan Orlando Primary Care Provider Allergies Allergen (clinical drug ingredient) Drug/Non Drug Allergy documented on EMR Reaction Allergy Type Onset Date Status No Known Drug Allergy Unknown Drug Allergy Active Results Component Value Reference Range Notes Complete Blood Count Auto Di ff Reviewed date:07/28/2023 08:48:57 PM Interpretation: Performing Lab:[facility], [address] [place] [phone] Notes/Report: White Blood Count 5.1 4.8-10.8 X10*3/uL Red Blood Count 5.38 4.60-5.80 X10*6/uL Hemoglobin 16.5 14.0-18.0 g/dl Hematocrit 49.0 42.0-52.0 % Mean Corpuscular Volume 91.1 80.0-98.0 fL Mean Corpuscular Hemoglobin 30.7 27.0-33.0 pg Mean Corpuscular HGB Conc 33.7 31.0-36.0 g/dl Red Cell Distribution Width 13.4 11.0-16.0 % Platelet Count 184 160-400 X10*3/uL Mean Platelet Volume 12.4 9.4-12.4 fL Neutrophils Percent Auto 67.9 45-73 % Imm Gran Pct Auto 0.2 0.0-0.4 % Lymphocytes Percent Auto 19.4 20-40 % Monocytes Percent Auto 8.4 2-11 % Eosinophils Percent Auto 2.9 0-4 % Basophils Percent Auto 1.2 0-2 % NRBC Pct Auto 0.0 0.0-0.2 /100WBC Neutrophils Absolute Auto 3.5 2.0-8.3 x10*3/u L Imm Gran Abs Auto 0.01 0.00-0.03 X10*3/uL Lymphocytes Absolute Auto 1.0 1.2-4.9 X10*3/u L Monocytes Absolute Auto 0.4 0.1-1.2 X10*3/uL Eosinophils Absolute Auto 0.2 0.0-0.4 X10*3/u L Basophils Absolute Auto 0.1 0.0-0.2 X10*3/uL NRBC Abs Auto 0.000 0.0-0.012 X10*3/uL Comprehensive [place]. Panel Fa Reviewed date:07/28/2023 08:48:57 PM Interpretation: Performing Lab:[address] [phone] Notes/Report: Sodium 139 135-145 mmol/L Potassium 4.4 3.3-5.1 mmol/L Chloride 105 96-108 mmol/L Carbon Dioxide 27 22-29 mmol/L Anion Gap 11 12-20 Blood Urea Nitrogen 14 9-16 mg/dL Creatinine 0.88 0.5-1.4 mg/dL Estimated Glomerular Filt Rate > 60 NOTE: For -Argentine individuals, multiply the result by 1.210. Chronic Kidney Disease: Estimated GFR < 60 mL/min/1.73m2 Severe Kidney Disease: Estimated GFR < 15 mL/min/1.73m2 Glucose Fasting 91 60-99 mg/dL Calcium 9.7 8.4-10.2 mg/dL Bilirubin Total 1.7 0.0-1.0 mg/dL Aspartate Amino Transferase 24 5-37 U/L Alanine Aminotransferase 26 0-40 U/L Total Protein 6.9 6.5-8.0 g/dL Albumin Level 4.3 3.5-5.0 g/dL Alkaline Phosphatase 51 39-117 U/L Lipid Panel Reviewed date:07/28/2023 08:48:57 PM Interpretation: Performing Lab:[address] [phone] Notes/Report: Triglycerides 110 <150 mg/dL Desirable Triglyceride: less than 150 mg/dL Borderline High Triglyceride 150-199 mg/dL High Triglyceride: 200-499 mg/dL Very High Triglyceride: greater than or equal to 5OO mg/dL Cholesterol 110 <200 mg/dL Desirable Cholesterol: less than 200 mg/dL Borderline High Cholesterol: 200-239 mg/dL High Cholesterol: greater than 239 mg/dL LDL Cholesterol Calculated 46 <100 mg/dL Desirable LDL: less than 100 mg/dL Near Optimal/Above Optimal LDL: 110-129 mg/dL Borderline High LDL: 130-159 mg/dL High LDL: 160-189 mg/dL Very High LDL: greater than or equal to 190 mg/dL HDL Cholesterol 42 >40 mg/dL Desirable HDL: greater than 40 mg/dL Note: This HDL assay may give artificially low results in patients with liver disease. PSA Free and Total Reviewed date:10/15/2023 09:04:18 AM Interpretation: Performing Lab:[facility], [address] [place] [phone] Notes/Report: Prostate Specific Ag Total 4.2 < OR = 4.0 ng/mL Percent Free Prostate Spec Ag 19 >25 % (calc) PSA(ng/mL) Free PSA(%) Estimated(x) Probability of Cancer(as%) 0-2.5 (*) Approx. 1 2.6-4.0(1) 0-27(2) 24(3) 4.1-10(4) 0-10 56 11-15 28 16-20 20 21-25 16 >or =26 8 >10(+) N/A >50 References:(1)Mitzy et al.:Urology 60: 469-474 (2002) (2)Mitzy et al.:J.Urol 168: 922-925 (2002) Free PSA(%) Sensitivity(%) Specificity(%) < or = 25 85 19 < or = 30 93 9 (3)Catalona et al.:KASI 277: 7797-9876 (1996) (4)Catalona et al.:KASI 279: 6104-2705 (1997) (x)These estimates vary with age, ethnicity, family history and ANGEL results. (*)The diagnostic usefulness of % Free PSA has not been established in patients with total PSA below 2.6 ng/mL (+)In men with PSA above 10 ng/mL, prostate cancer risk is determined by total PSA alone. The Total PSA value from this assay system is standardized against the equimolar PSA standard. The test result will be approximately 20% higher when compared to the WHO-standardized Total PSA (Siemens assay). Comparison of serial PSA results should be interpreted with this fact in mind. PSA was performed using the Alonzo Casey Immunoassay method. Values obtained from different assay methods cannot be used interchangeably. PSA levels, regardless of value, should not be interpreted as absolute evidence of the presence or absence of disease. THIS TEST WAS PERFORMED AT: [facility] [address] [place] [phone] WAGNER POLANCO MD Free Prostate Spec Ag 0.8 PSA,Total (Free>4and<10) Reviewed date:07/28/2023 08:48:57 PM Interpretation: Performing Lab:[address] [phone] Notes/Report: PSA,Total (Free>4and<10) 4.30 0.00-4.00 ng/mL PSA methodology: [employer] i Chemiluminescent Microparticle Immunoassay (CMIA) Testosterone, Total Reviewed date:10/15/2023 09:04:18 AM Interpretation: Performing Lab:[address] [phone] Notes/Report: Testosterone, Total 0296 425-6361 ng/dL Men with clinically significant hypogonadal symptoms and testosterone values repeatedly in the range of the 200-300 ng/dL or less, may benefit from testosterone treatment after adequate risk and benefits counseling. For additional information, please refer to http://education.[employer]/faq/ TotalTestosteroneLCMSM LVET554 (This link is being provided for informational/ educational purposes only.) This test was developed and its analytical performance characteristics have been determined by [employer] [place], [place]. It has not been cleared or approved by the U.S. Food and Drug Administration. This assay has been validated pursuant to the CLIA regulations and is used for clinical purposes. THIS TEST WAS PERFORMED AT: [facility] [address] DAVID YARBROUGH MD,PHD URINE DIP STICK Reviewed date:08/01/2023 02:13:32 PM Interpretation: Performing Lab: Notes/Report: SG 1.010 1.005 - 1.025 pH 6.5 5.0 - 9.0 RUDY 70 Negative - NIT Negative Negative - PRO 15 Negative - Trace GLU Negative Negative - KET Negative Negative - UBG 0.2 0.1 - 1.8 AARON Negative 0.2 - 1.3 BLD Negative Negative - COLOGUARD Reviewed date:09/14/2023 09:20:25 AM Interpretation: Performing Lab: Notes/Report: Result Positive Complete Blood Count Auto Di ff Reviewed date:11/12/2023 07:29:58 AM Interpretation: Performing Lab:[facility], [address] [place] [phone] Notes/Report: White Blood Count 5.5 4.8-10.8 X10*3/uL Red Blood Count 5.64 4.60-5.80 X10*6/uL Hemoglobin 16.9 14.0-18.0 g/dl Hematocrit 51.0 42.0-52.0 % Mean Corpuscular Volume 90.4 80.0-98.0 fL Mean Corpuscular Hemoglobin 30.0 27.0-33.0 pg Mean Corpuscular HGB Conc 33.1 31.0-36.0 g/dl Red Cell Distribution Width 13.6 11.0-16.0 % Platelet Count 179 160-400 X10*3/uL Mean Platelet Volume 12.5 9.4-12.4 fL Neutrophils Percent Auto 68.1 45-73 % Imm Gran Pct Auto 0.2 0.0-0.4 % Lymphocytes Percent Auto 20.2 20-40 % Monocytes Percent Auto 8.1 2-11 % Eosinophils Percent Auto 2.3 0-4 % Basophils Percent Auto 1.1 0-2 % NRBC Pct Auto 0.0 0.0-0.2 /100WBC Neutrophils Absolute Auto 3.8 2.0-8.3 x10*3/u L Imm Gran Abs Auto 0.01 0.00-0.03 X10*3/uL Lymphocytes Absolute Auto 1.1 1.2-4.9 X10*3/u L Monocytes Absolute Auto 0.5 0.1-1.2 X10*3/uL Eosinophils Absolute Auto 0.1 0.0-0.4 X10*3/u L Basophils Absolute Auto 0.1 0.0-0.2 X10*3/uL NRBC Abs Auto 0.000 0.0-0.012 X10*3/uL Comprehensive [place]. Panel Fa st Reviewed date:11/12/2023 07:29:58 AM Interpretation: Performing Lab:[facility], [address] [place] [phone] Notes/Report: Sodium 141 135-145 mmol/L Potassium 4.9 3.3-5.1 mmol/L Chloride 106 96-108 mmol/L Carbon Dioxide 27 22-29 mmol/L Anion Gap 13 12-20 Blood Urea Nitrogen 12 9-16 mg/dL Creatinine 0.88 0.5-1.4 mg/dL Estimated Glomerular Filt Rate > 60 NOTE: For -Argentine individuals, multiply the result by 1.210. Chronic Kidney Disease: Estimated GFR < 60 mL/min/1.73m2 Severe Kidney Disease: Estimated GFR < 15 mL/min/1.73m2 Glucose Fasting 108 60-99 mg/dL A fasting glucose from 100-125 mg/dl is considered impaired (pre-diabetes). Calcium 9.8 8.4-10.2 mg/dL Bilirubin Total 1.5 0.0-1.0 mg/dL Aspartate Amino Transferase 21 5-37 U/L Alanine Aminotransferase 23 0-40 U/L Total Protein 6.6 6.5-8.0 g/dL Albumin Level 4.1 3.5-5.0 g/dL Alkaline Phosphatase 50 39-117 U/L PSA Free and Total Reviewed date:11/12/2023 07:29:58 AM Interpretation: Performing Lab:[facility], [address] [place] [phone] Notes/Report: Prostate Specific Ag Total 3.9 < OR = 4.0 ng/mL Percent Free Prostate Spec Ag 26 >25 % (calc) PSA(ng/mL) Free PSA(%) Estimated(x) Probability of Cancer(as%) 0-2.5 (*) Approx. 1 2.6-4.0(1) 0-27(2) 24(3) 4.1-10(4) 0-10 56 11-15 28 16-20 20 21-25 16 >or =26 8 >10(+) N/A >50 References:(1)Mitzy et al.:Urology 60: 469-474 (2001) (2)Mitzy et al.:J.Urol 168: 922-925 (2001) Free PSA(%) Sensitivity(%) Specificity(%) < or = 25 85 19 < or = 30 93 9 (3)Catalona et al.:KASI 277: 1983-2791 (1996) (4)Catalona et al.:KASI 279: 0799-2288 (1997) (x)These estimates vary with age, ethnicity, family history and ANGEL results. (*)The diagnostic usefulness of % Free PSA has not been established in patients with total PSA below 2.6 ng/mL (+)In men with PSA above 10 ng/mL, prostate cancer risk is determined by total PSA alone. The Total PSA value from this assay system is standardized against the equimolar PSA standard. The test result will be approximately 20% higher when compared to the WHO-standardized Total PSA (Siemens assay). Comparison of serial PSA results should be interpreted with this fact in mind. PSA was performed using the Alonzo Goodell Immunoassay method. Values obtained from different assay methods cannot be used interchangeably. PSA levels, regardless of value, should not be interpreted as absolute evidence of the presence or absence of disease. THIS TEST WAS PERFORMED AT: [facility] [address] [phone] WAGNER POLANCO MD Free Prostate Spec Ag 1.0 Thyroid Stimulating Hormone Reviewed date:11/12/2023 07:29:58 AM Interpretation: Performing Lab:[facility], [address] [place] [phone] Notes/Report: Thyroid Stimulating Hormone 4.07 0.32-4.0 uIU/mL Note: A sustained TSH level above 2.5 uIU/mL may warrant further investigation. TSH 3rd Generation ([employer]) Pathology Reviewed date:02/21/2024 08:18:05 AM Interpretation: Performing Lab:[facility], [address] [place] [phone] Notes/Report: Name: Antelmo Szymanski Age/Sex: 78/M : 1945 Unit#: [id number] Attend Dr: Phan Daily MD Re11/23/23 Status: [facility] Location: [facility] Disch: SPEC : [id number] RECD: 11/23/23 STATUS: CHEVYShikha BELL NUM: [id number] JUNIOR: 11/23/23-[address] [facility] [address]: Phan Daiyl MD ENTERED: 11/23/23 SP TYPE: Surgical OTHR DR: Phan Orlando MD ORDERED: HE Stain/, Gross Micro L4/4 Diagnosis A. Colon, 50 cm, polypectomy: Tubular adenoma; negative for high-grade dysplasia or carcinoma. B. Cecum, polypectomy: Fragments of tubular adenoma; negative for high-grade dysplasia or carcinoma. D. Colon, ascending, polypectomy: Tubular adenoma; negative for high-grade dysplasia or carcinoma. D. Rectum, polypectomies: Fragments of tubular adenomata; negative for high-grade dysplasia or carcinoma. Clinical History Pre-Op Dx: Screening Post-Op Dx: Colon polyps, diverticulosis, hemorrhoids Microscopic Description A-D. Microscopic sections reviewed. Material Received A. Polyp at 50 [...] CONTINUED ON NEXT PAGE Name: Antelmo Szymanski Age/Sex: 78/M : 1945 Unit#: [id number] Attend Dr: Phan Daily MD Re11/23/23 Status: [facility] Location: [facility] Disch: SPEC : [id number] RECD: 11/23/23 STATUS: CAROLYN BELL NUM: [id number] JUNIOR: 11/23/[address] [facility] [address]: Phan Daily MD ENTERED: 11/23/23 SP TYPE: Surgical OTHR DR: Phan Orlando MD ORDERED: HE Stain/, Gross Micro L4/4 Gross Description (Continued) papular tissue fragments each measuring 0.6 cm, submitted in toto in a cassette labeled D. CEDS Copies To: Phan Orlando MD [address] [place] [address], [address] [place], [place] [id number] Phan Daily MD [address] [place] [address] Signed (signature on file) John Miller MD 11/24/23 1438 END OF REPORT Reason For Referral Reason positive cologuard t est Diagnosis 1 Positive colorectal cancer screening using Cologuard test (R19.5) Referral Organization Phan Orlando III, MD Referring Provider First Name Phan Referring Provider Last Name Johanny Referring Provider Speciality Internal M edicine Referred Provider Phan Daily Referred Provider Specialty Gastroentero logy General Notes Cathy Hart CM 09/13/2023 04:35:06 PM EDT > Called spoke to Charisse salvador patient appt with Dr Daily due to a positive cologuard test. Was given appt for 11/07/2023 at 2:40pm they will give information to Dr Daily to get patient a sooner appt . ref/progress note/positive cologuard test faxed to [phone] appt information mailed to patient Referral Priority Routine Referral Appointment Date 11/07/2023 Medications Medication SIG (Take, Route, Frequency, Duration) Notes Start Date End Date Status Auqtsgo-Vgjjlvwgw-Sbse 333-133-8.3 MG 1 tablet with a meal Orally Once a day Active Glucosamine Sulfate 1000 MG 1 capsule with a meal Orally Once a day Active Tadalafil 20 MG 1 tablet Orally Once a day 022 Active Finasteride 5 MG 1 tablet Orally Once a day Active Cosopt 22.3-6.8 MG/ML 1 drop into affect ed eye Ophthalmic Twice a day Active Aspirin 325 MG 1 tablet Orally Once a day Active Testosterone Enanthate 200 MG/ML 1 ml Intramuscular every 2 weeks 12/05/2017 Active Metoprolol Succinate ER 25 MG 1 tablet Orally Once a day A ctive Terbinafine HCl 1 % 1 application Wire Brush Maker ally twice a day 07/29/2021 Active Triamcinolone Acetonide 0.1 % 1 application Externally Twice a day 08/03/2022 Active Clopidogrel Bisulfate 75 MG 1 tablet Orally Once a day A ctive Atorvastatin Calcium 20 MG 1 tablet Orally Once a day Active Immunizations Vaccine Route Administration Date Status Comme nts PCV13 Unknown 11/25/2015 Administered Zostavax Unknown 11/25/2015 Administered PPV 23 Unknown 11/29/2016 Administered COVID 19 Rochelle Unknown 08/22/2020 Administered Td (adult) Unknown 06/29/2015 Administered Social History Tobacco Use: Social History Observation Description Date Details (start date - stop date) Former Smoker NA - NA Sex Assigned At : Social History Observation Description Sex Assigned At Male Tobacco Use/Smoking Question Answer Notes Patient is a former smoker How long has it been since you last smoked? > 10 years Additional Findings: Tobacco Non-User Ex-cigaret te smoker Alcohol Screen Question Answer Notes Did you have a drink containing alcohol in the p ast year? No Points 0 Interpretation Negative Problems Problem Type SNOMED Code ICD Code Onset Dates Problem Status W/U Status Risk Notes Problem 4419657 Former smoker (Z87.891) Active confirmed He has a plan to prevent relapse in times of stress and illness. Problem 135153410 Overweight (E66.3) Active confirmed His body mass index is 26.9. He has gained 1 pound. We discussed his weight loss strategy at length. We made a plan to lose weight at a rate of one half of a pound per week. Problem Prostate cancer (090948742) Prostate cancer (C61) Active confirmed He is up-to-date with urology visits and his PSA is 3.9. Problem 95130286 Other chronic pain (G89.29) Active confirmed Problem 237213288 Erectile dysfunction, unspecified erectile dysfunction type (N52.9) Active confirmed He is using tadalafil, but no longer takes testosterone since his diagnosis of carcinoma of the prostate. Problem 559823530 Coronary artery disease involving [place] coronary artery of [place] heart without angina pectoris (I25.10) Active confirmed He is free of angina palpitations or syncope. No change in his medications was needed. Problem 84221161 Hypogonadism in male (E29.1) Active confirmed He will continue the testosterone. Problem 012283113 History of atrial fibrillation (Z86.79) Active confirmed He was in a regular rhythm today with no murmurs. Problem Benign prostatic hypertrophy without outflow obstruction (007100924) Benign prostatic hyperplasia, unspecified whether lower urinary tract symptoms present (N40.0) Active confirmed He rises fro m sleep once a night. He is taking finasteride. We discussed lifestyle modification as an additional way to control nocturia. 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 In view of his history of prostate cancer, I referred him back to urology to discuss this matter Problem 52662193 Glaucoma of both eyes, unspecified glaucoma type (H40.9) Active confirmed He will continue with regular visits to the ophthalmologis t. Vital Signs Heart Rate 69 /min 11/15/2023 Temperature 98.1 degrees Fahrenheit 11/15/2023 Blood pressure diastolic 58 mm Hg 11/15/2023 Height 72 in 11/15/2023 Blood pressure systolic 127 mm Hg 11/15/2023 Weight 199 lbs 11/15/2023 BMI 26.99 kg/m2 11/15/2023 Encounters Encounter Location Date Provider Diagnosis Phan Orlando III, MD [address] [place] [address] [place] [phone] 08/01/2023 Phan Orlando Benign prostatic hyperplasia, unspecified whether lower urinary tract symptoms present N40.0 ; Prostate cancer C61 ; Overweight E66.3 ; Coronary artery disease involving [place] coronary artery of [place] heart without angina pectoris I25.10 ; Klinefelter syndrome Q98.4 ; History of atrial fibrillation Z86.79 and Former smoker Z87.891 Phan Orlando III, MD [address] [place] [address] [place] [address] 11/15/2023 Phan Orlando Benign prostatic hyperplasia, unspecified whether lower urinary tract symptoms present N40.0 ; Overweight E66.3 ; History of atrial fibrillation Z86.79 ; Klinefelter syndrome Q98.4 ; Hypogonadism in male E29.1 ; Prostate cancer C61 and Former smoker Z87.891 Phan Orlando III, MD [address] [place] [address] [address] [place] [phone] 09/13/2023 Phan Orlando III, MD [address] [place] [address] [address] [place] [phone] 09/14/2023 Phan Orlando Encounter for screening for malignant neoplasm of colon Z12.11 Assessments Encounter Date Diagnosis (ICD Code) Assessment Notes Treatment Notes Treatment Clinical Notes 08/01/2023 Prostate cancer (ICD-10 - C61) No sign of relapse today. He is overdue to see his urologist and was referred back to him. A PSA will be done at urologist office. 08/01/2023 Benign prostatic hyperplasia, unspecified whether lower urinary [...] half of a pound per week. 11/15/2023 Benign prostatic hyperplasia, unspecified whether lower urinary tract symptoms present (ICD-10 - N40.0) He rises from sleep once a night. He is taking finasteride. We discussed lifestyle modification as an additional way to control nocturia. 09/14/2023 Encounter for screening for malignant neoplasm of colon (ICD-10 - Z12.11) 08/01/2023 Overweight (ICD-10 - E66.3) He has lost 19 pounds and is now only overweight. He was encouraged to continue losing weight until his body mass index is in the normal range. We reviewed his weight loss strategy in detail. 11/15/2023 History of atrial fibrillation (ICD-10 - Z86.79) He was in a regular rhythm today with no murmurs. 08/01/2023 Coronary artery disease involving [place] coronary artery of [place] heart without angina pectoris (ICD-10 - I25.10) He is free of angina palpitations or syncope. No change in his medications was needed. 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 In view of his history of prostate cancer, I referred him back to urology to discuss this matter 08/01/2023 Klinefelter syndrome (ICD-10 - Q98.4) He requested a prescription for testosterone injections. In view of his history of prostate cancer, I referred him back to urology to discuss this matter 11/15/2023 Hypogonadism in male (ICD-10 - E29.1) He will continue the testosterone. 08/01/2023 History of atrial fibrillation (ICD-10 - Z86.79) He was in sinus rhythm with a normal rate. 11/15/2023 Prostate cancer (ICD-10 - C61) He is up-to-date with urology visits and his PSA is 3.9. 08/01/2023 Former smoker (ICD-10 - Z87.891) He has a plan to prevent relapse in times of stress and illness. 11/15/2023 Former smoker (ICD-10 - Z87.891) He has a plan to prevent relapse in times of stress and illness. Plan Of Treatment Pending Test Test Name Order Date PROFILE, FASTING (COMPREHENSIVE METABOLI C) 11/15/2023 PROFILE, FASTING (COMPREHENSIVE METABOLI C) 08/01/2023 TSH (THYROID STIMULATING HORMONE) 2023 PSA, TOTAL 11/15/2023 PSA, TOTAL+FREE 08/01/2023 CBC w DIFF 08/01/2023 CBC w DIFF 11/15/2023 Lipid Panel 11/15/2023 Next Appt Details Provider Name:Phan Orlando, 08/05/2024 02:00:00 PM, [address] [place] [address] , [facility] Carm[place], [place], [phone], Insurance Providers Payer Name Payer Address Payer Phone Subscriber Number Group Number Insured Name Patient Relationship to Insured Coverage Start Date Coverage End Date MEDICARE NGS [address] [place] [phone] [id number] ANTELMO SZYMANSKI Self - patient is the insured [facility] [address] [place] [address] [id number] ANTELMO SZYMANSKI Self - patient is the insured Medical (General) History Medical History History ICD Code Primary hypogonadism in male E29.1 Klinefelter syndrome Q98.4 benign prostatic hypertrophy overweight, BMI 29 glaucoma cholecystectomy appendectomy, degenerative joint disease . Both knees history of ablation procedure for atrial fibrillation. 2006 cataract extractions former smoker 2017 adenocarcinoma prostate, Dr. Haji, [facility] Coronary artery disease, cardiac cathete rization May 2021 Surgical History Surgery Date(Month/Year) Bilateral Carpaltunnel Surgery 04/2022 Cardiac catheterization with stents on B [facility] 05/2021 Stent placement right artery 05/2021 colonoscopy, Dr. Phan Daily, [facility] 2007 biopsy of prostate, positive for adenocarcinoma, Gale 3+4 = 7, Dr. Haji 06/2017 colonoscopy, positive tubula r adenoma, Dr. Phan Daily, [facility] 2011 left eye cataract extraction 2011 right eye catartact extraction 2011 cardiac catheterization ablation procedu re for atrial fibrillation 2006 bilateral meniscus arthroscopic surgery 1994, 1998 appendectomy cholecystectomy
--- OUTSIDE RECORDS SUMMARY | 2024-07-16 12:52 | XMS_ITS ---
Author Organization Phan Orlando III, MD Address [address] [place] [address] [address] [place] [address] Care Team Providers Care Insight Director Name Role Phone Phan [facility] [...] Duration) Notes Start Date End Date Status Crquvce-Fjhzfrfon-Jjrx 333-133-8.3 MG 1 tablet with a meal [...] ctive Terbinafine HCl 1 % 1 application Drug And Alcohol Treatment Specialist ally twice a day 07/29/2021 Active Social [...] Date Provider Diagnosis Phan Orlando III, MD [address] [place] [address] [place] [address] 11/15/2023 Phan Orlando Benign prostatic hyperplasia, unspecified [...] Name Sig Start Date Stop Date Notes Zgamtwk-Vkmhzbjjz-Skeu 333-133-8.3 MG 1 tablet with a meal [...] day Terbinafine HCl 1 % 1 application Drug And Alcohol Treatment Specialist ally twice a day 07/29/2021 Pending Test Test Name Order Date PROFILE, FASTING (COMPREHENSIVE METABOLI C) 11/15/2023 PSA, TOTAL 11/15/2023 CBC w DIFF 11/15/2023 Lipid Panel 11/15/2023 Next Appt Details Follow Up: 6 Months, Reason: ov Provider Name:Phan Orlando, 08/05/2024 02:00:00 PM, [address] [place] [address] DR, [facility] [address], [place], [phone], Progress Notes * ANTELMO SZYMANSKI MDOB:1945 (78 yo M)Acc No.[id number]:11/15/2023 Progress Notes Patient:?ANTELMO SZYMANSKI Provider:?Phan Orlando MD :1945???Age:78 Y???Sex:Male Chavez e:11/15/2023 Address:[address] [place] [address] Subjective: * Chief Complaints: * ???Benign prostatic hypertro phyProstate cancerHypogonadismKlinefelter syndromeHistory of atrial fibrillationCoronary artery disease * HPI: ???COVID-19 Screening:? He returns to the office for medical management. He is going to go to [place] for the winter on November 30, 2023 [...] no new complaints. His PSA is 3.9. ?Questions?Have you experienced fever, chills, cough, sore throat, shortness of breath, difficulty breathing, muscle aches, loss of taste or smell??No ?Have you been exposed to the virus within the last 10 days??No ?Have you travelled internationally in the last 10 days??No ?Have you been exposed to COVID-19 in the past??Yes * ROS:?General/Constitutional:?pain?only normal aches and pains.?Chills?denies.?Fatigue?admits.?Fever?denies.?ENT:?Decreased hearing?denies.?Respiratory:?Cough?denies.?Cardiovascular:?Chest pain with exertion?denies.?Dyspnea on exertion?denies.?Shortness of breath?denies.?Gastrointestinal:?Constipation?occasional.?Decreased appetite?denies.?Diarrhea?denies.?Heartburn?denies.?Nausea?denies.?Rectal bleeding?denies.?Vomiting?denies.?Hematology:?bruising?denies.?petechiae?denies.?Swollen glands?none have been noted.?Genitourinary:?Frequent urination?twice a night.?Musculoskeletal:?Muscle aches?denies.?Painful joints?denies.?Sciatica?denies.?Weakness?denies.?Skin:?Itching?denies.?Rash?denies.?Skin lesion(s)?denies.?Neurologic:?Difficulty speaking?denies.?Dizziness?denies.?Headache?denies.?Low back pain?denies.?Psychiatric:?Depressed mood?denies.? * Medical History:? * Surgical History:?cholecyste ctomy appendectomy bilateral meniscus arthroscopic surgery 1994, 1998cardiac catheterization ablation procedure for atrial fibrillation 2007right eye catartact extraction 2012left eye cataract extraction 2012colonoscopy, positive tubular adenoma, Dr. Phan Daily, [facility] 2012biopsy of prostate, positive for adenocarcinoma, Gale 3+4 = 7, Dr. Haji 06/2017colonoscopy, Dr. Phan Daily, [facility] 2007Stent placement right artery ardiac catheterization with stents on [facility] ilateral Carpaltunnel Surgery 04/2022 * Hospitalization/Major Diagno stic Procedure:?Denies Past Hospitalization * Family History:?Father: dece ased 72 yrs, Coronary artery disease, diagnosed with CVD.?Mother: 90 yrs, Colon cancer, diagnosed with Cancer.?Siblings: unknown.?Maternal Grand Mother: alive, diagnosed with HTN.?2 brother(s) - healthy. 2 daughter(s) - healthy. .? His father of coronary artery disease and his mother of colon cancer. He has a brother with renal failure. A maternal grandmother had adult onset diabetes. He is not aware of any family history of mental illness or substance abuse or addiction. * Social History:?Tobacco Use:?Tobacco Use/Smoking?Patient is a?former smoker ?How long has it been since you last smoked??> 10 years ?Additional Findings: Tobacco Non-User?Ex-cigarette smoker ???Patient stopped smoking 17 years ago and drinks 2 beers daily. * Medications:?TakingTerbinafi ne HCl 1 % Cream 1 application Externally [...] capsule with a meal Orally Once a kbeAnlowxz-Bnviflngr-Mjfx 333-133-8.3 MG Tablet 1 tablet with a [...] with a meal Orally Once a dayTaking Qfoolly-Liaiyajxp-Gzdh 333-133-8.3 MG Tablet 1 tablet with a meal Orally Once a dayTaking Finasteride 5 MG Tablet 1 tablet Orally Once a dayTaking Tadalafil 20 MG Tablet 1 tablet Orally Once a day, stop date 07/26/2024Taking Triamcinolone Acetonide 0.1 % Cream 1 application Externally Twice a dayMedication List reviewed and reconciled with the patient * Allergies:?No Known Drug All ergyno[Allergies Verified] Objective: * Vitals:?Ht: 72, Wt:199, BMI: 26.99, BP:127/58, HR:69, Temp:98.1, Wt-k.26. * ???Past Orders: Lab:PSA Free and Total * Order Date 11/06/2023 07/26/2023 Prostate Specific Ag Total 3.9 (Ref Range: < OR = 4.0 ng/mL) 4.2?A (Ref Range: < OR = 4.0 ng/mL) Percent Free Prostate Spec Ag 26 (Ref Range: >25 % (calc)) 19?A (Ref Range: >25 % (calc)) Free Prostate [...] (Ref Range: 160-400 X10*3/uL) Mean Platelet Volume 12.5?H (Ref Range: 9.4-12.4 fL) 12.4 (Ref Range: 9.4-12.4 fL) 12.0 (Ref Range: 9.4-12.4 fL) Neutrophils Percent Auto 68.1 (Ref Range: 45-73 %) 67.9 (Ref Range: 45-73 %) 62.6 (Ref Range: 45-73 %) Imm Gran Pct Auto 0.2 (Ref Range: 0.0-0.4 %) 0.2 (Ref Range: 0.0-0.4 %) 0.3 (Ref Range: 0.0-0.4 %) Lymphocytes Percent Auto 20.2 (Ref Range: 20-40 %) 19.4?L (Ref Range: 20-40 %) 25.1 (Ref Range: [...] (Ref Range: 0.00-0.03 X10*3/uL) Lymphocytes Absolute Auto 1.1?L (Ref Range: 1.2-4.9 X10*3/uL) 1.0?L (Ref Range: 1.2-4.9 X10*3/uL) 1.4 (Ref Range: [...] 140 (Ref Range: 135-145 mmol/L) Bilirubin Total 1.5?H (Ref Range: 0.0-1.0 mg/dL) 1.7?H (Ref Range: 0.0-1.0 mg/dL) 1.3?H (Ref Range: 0.0-1.0 mg/dL) Aspartate Amino Transferase [...] mmol/L) Anion Gap 13 (Ref Range: 12-20) 11?L (Ref Range: 12-20) 12 (Ref Range: 12-20) Blood Urea Nitrogen 12 (Ref Range: 9-16 mg/dL) 14 (Ref Range: 9-16 mg/dL) 12 (Ref Range: 9-16 mg/dL) Creatinine 0.88 (Ref Range: 0.5-1.4 mg/dL) 0.88 (Ref Range: 0.5-1.4 mg/dL) 1.10 (Ref Range: 0.5-1.4 mg/dL) Estimated Glomerular Filt Rate > 60 > 60 > 60 Glucose Fasting 108?H (Ref Range: 60-99 mg/dL) 91 (Ref Range: 60-99 mg/dL) 117?H (Ref Range: 60-99 mg/dL) Calcium 9.8 (Ref Range: 8.4-10.2 mg/dL) 9.7 (Ref Range: 8.4-10.2 mg/dL) 9.4 (Ref Range: 8.4-10.2 mg/dL) ???Lab:DANNY (Order Date - 09/14/2023) (Collection Date - 08/23/2023) ?ValueReference Range?ResultPositive * Examination: ???General Examination: ?GENERAL APPEARANCE:?pleasant, well nourished, well developed, in no acute distress, calm and relaxed , overweight , man.?HEAD:?atraumatic, normocephalic.?EYES:?eomi, perrla, anicteric, conjugate.?EARS:?normal.?NOSE:?septum intact.?ORAL CAVITY:?normal, unremarkable.?NECK/THYROID:?no jugular venous distention, no carotid bruit, thyroid normal.?LYMPH NODES:?no enlarged lymph nodes,spleen normal.?SKIN:?no suspicious lesions, anicteric.?HEART:?no clicks, gallops, murmurs, or rubs, regular rhythm, S1, S2 normal, no s3, or vascular bruits.?LUNGS:?clear to auscultation .?BREASTS:??no masses palpable bilaterally.?ABDOMEN:?bowel sounds normal, no ascites, no organomegaly, no mass , overweight.?RECTAL EXAM:?not examined.?MUSCULOSKELETAL:?extremities unremarkable, no clubbing, cyanosis or edema.?PERIPHERAL PULSES:?normal.?NEUROLOGIC:?alert and oriented, cranial nerves 2-12 grossly intact, deep tendon reflexes 2+ symmetrical, motor strength normal upper and lower extremities, sensory exam intact.?PSYCH:?alert, oriented.? Assessment: * Assessment: 1.?Overweight - E66.3, His b abbe mass index is 26.9. He has gained 1 pound. We discussed his weight loss strategy at length. We made a plan to lose weight at a rate of one half of a pound per week.?2.?Benign prostatic hyperplasia, unspecified whether lower urinary tract symptoms present - N40.0, He rises from sleep once a night. He is taking finasteride. 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 In view of his history of prostate cancer, I referred him back to urology to discuss this matter?5.?Hypogonadism in male - E29.1, He will continue the testosterone.?6.?Prostate cancer - C61, He is up-to-date with urology visits and his PSA is 3.9.?7.?Former smoker - Z87.891, He has a plan to prevent relapse in times of stress and illness.? Plan: * Treatment: 2.?Benign prostatic hyperpla sravani, unspecified whether lower urinary tract symptoms present? Continue Testosterone Enanthate Solution, 200 MG/ML, 1 ml, Intramuscular, every 2 weeks;?Continue Aspirin Tablet, 325 MG, 1 tablet, Orally, Once a day;?Continue Cosopt Solution, 22.3-6.8 MG/ML, 1 drop into affected eye, Ophthalmic, Twice a day;?Continue Glucosamine Sulfate Capsule, 1000 MG, 1 capsule with a meal, Orally, Once a day;?Continue Blbqjfp-Vivejyckx-Rrcu Tablet, 333-133-8.3 MG, 1 tablet with a meal, Orally, Once a day;?Continue Finasteride Tablet, 5 MG, 1 tablet, Orally, Once a day;?Continue Tadalafil Tablet, 20 MG, 1 tablet, Orally, Once a day;?Continue Triamcinolone Acetonide Cream, 0.1 %, 1 application, Externally, Twice a day.?LAB: PROFILE, FASTING (COMPREHENSIVE METABOLIC) ?LAB: PSA, TOTAL ?LAB: CBC w DIFF ?LAB: Lipid Panel 3.?History of atrial fibrill ation?LAB: PROFILE, FASTING (COMPREHENSIVE METABOLIC) ?LAB: PSA, TOTAL ?LAB: CBC w DIFF ?LAB: Lipid Panel 4.?Others? Continue Terbinafine HCl Cream, 1 %, 1 application, Externally, twice a day;?Continue Metoprolol Succinate ER Tablet Extended Release 24 Hour, 25 MG, 1 tablet, Orally, Once a day;?Continue Atorvastatin Calcium Tablet, 20 MG, 1 tablet, Orally, Once a day;?Continue Clopidogrel Bisulfate Tablet, 75 MG, 1 tablet, Orally, Once a day.?? * Procedure Codes:? * Preventive Medicine:? ??Counseling:?Care goal follow-up plan:?Counseling for abnormal BMI given?Yes ?Above Normal BMI Follow-up?Dietary management education, guidance, and counseling ?Smoking/Tobacco Use?Patient counseled on the dangers of tobacco use and urged to quit.?11/15/2023 * Follow Up:?6 Months (Reason: ov) * Images: * Sign off status: Completed true * Provider:?Phan Orlando MD Date:?10/28 Generated for Printi jyotsna/Esteban/eTransmitting on:?07/16/2024 12:52 PM EDT History and Physical Notes * HPI (History of Present Illness) Category Sub-Category Detail Notes COVID-19 Screening Questions Have you had any new onset fever, chills, cough, congestion, sore throat, shortness of breath, muscle aches?: No Have you been exposed to the virus with n the last 10 days?: No Have you travelled internationally in e last 10 days?: No Have you been [...]
[2024-07-16 14:27] LABS: Hematocrit 46.1 % (42.0-52.0); Hemoglobin 15.9 g/dl (14.0-18.0); Mean Corpuscular HGB Conc 34.5 g/dl (31.0-36.0); Mean Corpuscular Hemoglobin 31.5 pg (27.0-33.0); Mean Corpuscular Volume 91.3 fL (80.0-98.0); Platelet Count 177 X10*3/uL (160-400); Red Blood Count 5.05 X10*6/uL (4.60-5.80); Red Cell Distribution Width 13.8 % (11.0-16.0); White Blood Count 6.4 X10*3/uL (4.8-10.8)
[2024-07-16 14:57] LABS: Prostate Specific Antigen 5.43 ng/mL (<0.05-4.0)
[2024-07-20 17:54] LABS: Testosterone, Total 408 ng/dL (250-1100)
== END 2024-07-16 11:39 | disposition home or self-care (01) ==
LOC: HO.WFDLDS 11:38
PROVIDERS: Visit Provider Urology
DX: E29.1 Testicular hypofunction (principal); Z12.5 Encounter for screening for malignant neoplasm of prostate
CPT/HCPCS: 36415; 84153; 84403; 85027

== ENCOUNTER 2024-07-26 10:49 | Outpatient (AMB) | payer MEDICARE, OTHER, SELFPAY ==
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
--- OUTSIDE RECORDS SUMMARY | 2024-07-26 11:37 | XMS_ITS | Clinical Summary ---
Author Organization [facility] Address [address] [place] [phone] Care Team Providers Care Teacher Instrumental Name Role Phone Unavailable Primary Care Provider Unavailabl e Social History Tobacco Use Types Packs/Day Years Used Date Smoking Tobacco: Never Assessed Sex and Gender Information Value Date Recorded Sex Assigned at Not on file Legal Sex Male 8:06 PM EST Gender Identity Not on file Sexual Orientation Not on file Plan of Treatment Health Maintenance Due Date Last Done Comments HIV screening 1958 Hepatitis C screening 1963 Tetanus adult (Td q 10,TDAP once) 1965 Lipid disorder screening 1985 Diabetes screening 1990 Pneumococcal Vaccine (50+ ye ars) (1 of 1 - PCV) 1995 Shingles vaccine (Shingrix) (1 of 2 - Shingrix (RZV) 2 Dose Standard Series) 1995 RSV Immunization (1 - 1-dose 75+ series) 2020 Covid-19 vaccine series ( - 2023- season) 2023 Influenza vaccine 10/28/2024 Colon cancer screening, Colonoscopy Discontinued Meningococcal Vaccine Aged Out No sophia luis eligible based on patient's age to complete this topic
== END 2024-07-26 11:37 | disposition home or self-care (01) ==
LOC: HO.HUSH 10:49
PROVIDERS: PCP Internal Medicine Medical Oncology; Visit Provider Urology
DX: E29.1 Testicular hypofunction (principal); C61 Malignant neoplasm of prostate
CPT/HCPCS: 99213; G2211

== ENCOUNTER → 2024-07-26 10:49 | Outpatient (BNVA) | payer MEDICARE, OTHER, SELFPAY | PROVIDERS: PCP Internal Medicine Medical Oncology; Visit Provider Urology | DX: Z13.89 Encounter for screening for other disorder (principal) ==

== ENCOUNTER 2024-07-30 09:51 | Outpatient (REF) | payer MEDICARE, OTHER, SELFPAY ==
--- OUTSIDE RECORDS SUMMARY | 2024-07-30 11:05 | XMS_ITS | Clinical Summary ---
Author Organization [facility] Address [address] [place] [phone] Care Team Providers Care Feedlot Manager Name Role Phone Unavailable Primary Care Provider [...]
[2024-07-30 13:11] LABS: MANUAL DIFF FLAG NO
[2024-07-30 13:31] LABS: Basophils Absolute Auto 0.1 X10*3/uL (0.0-0.2); Basophils Percent Auto 0.9 % (0-2); Eosinophils Absolute Auto 0.1 X10*3/uL (0.0-0.4); Hematocrit 49.3 % (42.0-52.0); Hemoglobin 16.5 g/dl (14.0-18.0); Imm Gran Abs Auto 0.01 X10*3/uL (0.00-0.03); Imm Gran Pct Auto 0.2 % (0.0-0.4); Lymphocytes Absolute Auto 1.2 X10*3/uL (1.2-4.9); Lymphocytes Percent Auto 19.1 % (20-40); Mean Corpuscular HGB Conc 33.5 g/dl (31.0-36.0); Mean Corpuscular Hemoglobin 30.8 pg (27.0-33.0); Mean Platelet Volume 12.3 fL (9.4-12.4); Monocytes Absolute Auto 0.5 X10*3/uL (0.1-1.2); Neutrophils Absolute Auto 4.5 x10*3/uL (2.0-8.3); Neutrophils Percent Auto 69.8 % (45-73); Platelet Count 194 X10*3/uL (160-400); Red Blood Count 5.36 X10*6/uL (4.60-5.80); Red Cell Distribution Width 13.5 % (11.0-16.0); White Blood Count 6.4 X10*3/uL (4.8-10.8)
[2024-07-30 14:04] LABS: Alanine Aminotransferase 25 U/L (0-40); Albumin Level 4.3 g/dL (3.5-5.0); Alkaline Phosphatase 45 U/L (39-117); Anion Gap 10 (12-20); Aspartate Amino Transferase 27 U/L (5-37); Bilirubin Total 1.4 mg/dL (0.0-1.0); Blood Urea Nitrogen 14 mg/dL (9-16); Calcium 9.4 mg/dL (8.4-10.2); Carbon Dioxide 28 mmol/L (22-29); Chloride 107 mmol/L (96-108); Cholesterol 106 mg/dL (<200); Estimated Glomerular Filt Rate > 60; Glucose Fasting 106 mg/dL (60-99); HDL Cholesterol 39 mg/dL (>40); LDL Cholesterol Calculated 51 mg/dL (<100); Potassium 4.6 mmol/L (3.3-5.1); Sodium 140 mmol/L (135-145); Total Protein 6.5 g/dL (6.5-8.0); Triglycerides 82 mg/dL (<150)
[2024-07-30 14:23] LABS: Prostate Specific Antigen 5.63 ng/mL (<0.05-4.0)
== END 2024-07-30 09:52 | disposition home or self-care (01) ==
LOC: HO.HMGCLDS 09:51
PROVIDERS: PCP Internal Medicine Medical Oncology; Visit Provider Internal Medicine Medical Oncology
DX: N40.0 Benign prostatic hyperplasia without lower urinary tract symptoms (principal); E66.3 Overweight; Z86.79 Personal history of other diseases of the circulatory system; Z12.5 Encounter for screening for malignant neoplasm of prostate
CPT/HCPCS: 36415; 80053; 80061; 84153; 85025

== ENCOUNTER 2024-08-13 09:21 | Outpatient (REF) | payer MEDICARE, OTHER, SELFPAY ==
--- OUTSIDE RECORDS SUMMARY | 2024-08-13 10:04 | XMS_ITS | Clinical Summary ---
Author Organization [facility] Address [address] [place] [address] Care Team Providers Care Door Core Assembler Name Role Phone Unavailable Primary Care Provider [...]
[2024-08-13 14:03] LABS: PSA,Total (Free>4and<10) 5.26 ng/mL (0.00-4.00)
[2024-08-14 13:09] LABS: Free Prostate Spec Ag 0.8 ng/mL; Percent Free Prostate Spec Ag 17 % (calc) (>25); Prostate Specific Ag Total 4.7 ng/mL (< OR = 4.0)
== END 2024-08-13 09:22 | disposition home or self-care (01) ==
LOC: HO.HMGCLDS 09:21
PROVIDERS: PCP Internal Medicine Medical Oncology; Visit Provider Internal Medicine Medical Oncology
DX: N40.0 Benign prostatic hyperplasia without lower urinary tract symptoms (principal); Z12.5 Encounter for screening for malignant neoplasm of prostate
CPT/HCPCS: 36415; 84153; 84154

== ENCOUNTER 2024-10-22 09:49 | Outpatient (REF) | payer MEDICARE, OTHER, SELFPAY ==
--- OUTSIDE RECORDS SUMMARY | 2023-11-23 09:00 | XMS_ITS ---
Author Organization [facility] Address [address] [place] [address] Care Team Providers Care Music Assistant Name Role Phone Phan Orlando MD Primary Care Provider Unavailab Phan Alvarez Unavailable [phone] REASON FOR VISIT positive colon ca screening using cologuard Problems Problem Type SNOMED Code ICD Code Onset Dates Problem Status W/U Status Risk Notes Problem Diverticulosis o f large intestine without perforation or abscess without bleeding (K57.30) Active confirmed Encounters Encounter Location Date Provider Diagnosis [facility] [place] [place] Outpatient [address] [place], [place] [phone] 11/23/2023 Phan Daily Colon cancer scree glo [...] * ANTELMO BLANC MDOB:1945 (79 yo M)Acc No.[id number]:11/23/2023 COLON WITH MAC Patient: ANTELMO VAUGHAN Provider: Tamar Daily MD :1945 A ge:78 Y S ex:Male Date:11/23/2023 Address:[address] [place], [place] [phone] Pcp:Phan Orlando MD Subjective: * Chief Complaints: [...] 0 11/23/2023 Generated for Nacho goyal/Esteban/Dominicitting on: 0 10/22/2024 10:34 AM EDT
--- OUTSIDE RECORDS SUMMARY | 2024-08-05 10:00 | XMS_ITS ---
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8 AARON Negative 0.2 - 1.3 BLD Negative Negative - REASON FOR VISIT Annual Exam Medications Medication SIG (Take, Route, Frequency, Duration) Notes Start Date End Date Status Xqwqfbd-Fwtcwiswt-Jcjg 333-133-8.3 MG 1 tablet with a meal Orally Once a day Active Glucosamine Sulfate 1000 MG 1 capsule with a meal Orally Once a day Active Cosopt 22.3-6.8 MG/ML 1 drop into affect ed eye Ophthalmic Twice a day Active Finasteride 5 MG 1 tablet Orally Once a day Active Aspirin 325 MG 1 tablet Orally Once a day Active Metoprolol Succinate ER 25 MG 1 tablet Orally Once a day A ctive Terbinafine HCl 1 % 1 application Coping Machine Assembler ally twice a day 07/29/2021 Active Testosterone Enanthate 200 MG/ML 1 ml Intramuscular every 2 weeks 12/05/2017 Active Clopidogrel Bisulfate 75 MG 1 tablet Orally Once a day A ctive Atorvastatin Calcium 20 MG 1 tablet Orally Once a day Active Tadalafil 20 MG 1 tablet Orally Once a day 022 Active Social History Tobacco Use: Social History Observation Description Date Details (start date - stop date) Former Smoker NA - NA Sex Assigned At : Social History Observation Description Sex Assigned At Male Tobacco Control (Standard) Question Answer Notes Tobacco use: Former smoker How long has it been since you last smoked? Grea ter than 10 years Additional Findings: Tobacco non-user Ex-cigaret te smoker AUDIT-C (Standard) Question Answer Notes Did you have a drink contain ing alcohol in the past year? Yes How often did you have six o r more drinks on one occasion in the past year? 2 to 4 times a month (2 points) How many drinks did you have on a typical day when you were drinking in the past year? 1 or 2 drinks (0 point) How often did you have a dri nk containing alcohol in the past year? 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 He is taking finasteride. We discussed lifestyle modification as an additional way to control nocturia. 08/05/2024 Prostate cancer (ICD-10 - C61) He is up-to-date with urology visits. His PSA has risen to about 5. This was forwarded to his urologist. He was notified of the significance of this. He remains asymptomatic. 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 In view of his history of prostate cancer, I referred him back to urology to discuss this matter 08/05/2024 Hypogonadism in male (ICD-10 - E29.1) He will continue the testosterone. 08/05/2024 Overweight (ICD-10 - E66.3) His body mass index is 26.9. He has gained 1 pound. We discussed his weight loss strategy at length. We made a plan to lose weight at a rate of one half of a pound per week. 08/05/2024 Former smoker (ICD-10 - Z87.891) He has a plan to prevent relapse in times of stress and illness. 08/05/2024 Elevated PSA (ICD-10 - R97.20) Plan Of Treatment Medication Medication Name Sig Start Date Stop Date Notes Yuxfvmo-Wulolpzbo-Kdag 333-133-8.3 MG 1 tablet with a meal Orally Once a day Glucosamine Sulfate 1000 MG 1 capsule wi th a meal Orally Once a day Cosopt 22.3-6.8 MG/ML 1 drop into affect ed eye Ophthalmic Twice a day Finasteride 5 MG 1 tablet Orally Once a day Aspirin 325 MG 1 tablet Orally Once a day Metoprolol Succinate ER 25 MG 1 tablet Orally Once a day Terbinafine HCl 1 % 1 application Coping Machine Assembler ally twice a day 07/29/2021 Testosterone Enanthate 200 MG/ML 1 ml Intramuscular every 2 weeks 12/05/2017 Clopidogrel Bisulfate 75 MG 1 tablet Orally Once a day Atorvastatin Calcium 20 MG 1 tablet Orally Once a day Tadalafil 20 MG 1 tablet Orally Once a day 11/12/2021 Pending Test Test Name Order Date PSA Free and Total 08/05/2024 Next Appt Details Follow Up: 8 weeks, Reason: ov review labs Provider Name:Phan Orlando, 11/01/2024 10:15:00 AM, [address] [place] [address] [address], [place], [phone], Provider Name:Phan Orlando, 08/06/2025 02:00:00 PM, [address] [place] [address] [address], [place], [phone], Progress Notes * ANTELMO SZYMANSKI MDOB:1945 (79 yo M)Acc No.[id number]:08/05/2024 Progress Notes Patient: ANTELMO VAUGHAN Provider: Tamar Orlando MD :1945 A ge:79 Y S ex:Male Date:08/05/2024 Address:[address] [place] [address] , [facility] [id number] Subjective: * Chief Complaints: * A nnual Exam * HPI: D epression Screening: He comes to the office at the age of 79, for his annual physical examination. Since his last visit he has been healthy and well with no new illnesses. He is taking no new medications.Comprehensive blood work was available and was reviewed with him.. He denies any chest pain or shortness of breath, bleeding weight gain or weight loss.He has been rising from sleep once or twice a night to urinate. His prostate cancer has been well-controlled. He has not had any episodes of atrial fibrillation recently. He denies any angina. He says he is happy with his state of health.He has agreed to a colonoscopy and we have made this referral. PHQ-9 L ittle interest or pleasure in doing things?Not at all F eeling down, depressed, or hopeless N ot at all T rouble falling or staying asleep, or sleeping too much N ot at all F eeling tired or having little energy N ot at all P oor appetite or overeating N ot at all F eeling bad about yourself or that you are a failure, or have let yourself or your family down N ot at all T rouble concentrating on things, such as reading the newspaper or watching television N ot at all M oving or speaking so slowly that other people could have noticed; or the opposite, being so fidgety or restless that you have been moving around a lot more than usual N ot at all T houghts that you would be better off or of hurting yourself in some way N ot at all T otal Score 0 C OVID-19 Screening: left heel pain, occ back pain, here till oct. Questions H ave you had any new onset fever, chills, cough, congestion, sore throat, shortness of breath, muscle aches? N o S RONALD Questions: SDOH Questions I n the past year have you or any family members you live with been unable to get any of the following when it was really needed? Check all that apply: D ecline to answer * ROS: G eneral/Constitutional: pain o nly normal aches and pains. C hills d enies.?Fatigue a dmits. F ever d enies. E NT: Decreased hearing d enies. R espiratory: Cough d enies. C ardiovascular: Chest pain with exertion d enies. D yspnea on exertion?denies. S hortness of breath d enies. G astrointestinal: Constipation d enies. D ecreased appetite d enies.?Diarrhea d enies. H [place] d enies. N ausea d enies. R ectal bleeding?denies. V omiting d enies. H ematology: bruising d enies. p etechiae d enies. S wollen glands n one have been noted. G enitourinary: Frequent urination o nce a night. M usculoskeletal: Muscle aches d [...] 2012colonoscopy, positive tubular adenoma, Dr. Phan Daily, [facility] 2012biopsy of prostate, positive for adenocarcinoma, [place] 3+4 = 7, Dr. Haji 06/2017colonoscopy, Dr. Phan Daily, [facility] 2007Stent placement right artery ardiac catheterization [facility] [place] [facility] * Hospitalization/Major Diagno stic Procedure: D penny Past Hospitalization * Family History: F ather: 72 yrs, Coronary artery disease, diagnosed with CVD. M other: 90 yrs, Colon cancer, diagnosed with Cancer. S iblings: unknown. M atejuan daniell Grand Mother: alive, diagnosed with HTN. 2 [...] Social History: T obacco Use: T obacco Control (Standard) T obacco use: F ormer smoker H ow long has it been since you last smoked??Greater than 10 years A dditional Findings: Tobacco non-user E x-cigarette smoker D rugs/Alcohol: D rugs H ave you used drugs other than those for medical reasons in the past 12 months? N o D rug/Alcohol: A ZAC-C (Standard) D id you have a drink containing alcohol in the past year? Y es H ow often did you have six or more drinks on one occasion in the past year? 2 to 4 times a month (2 points) H ow many drinks did you have on a typical day when you were drinking in the past year? 1 or 2 drinks (0 point) H ow often did you have a drink containing alcohol in the past year? N ever (0 point) P oints 2 I nterpretation N egative P atient stopped smoking 17 years ago and drinks 2 beers daily. * Medications: T akingTerbinafine HCl 1 % Cream 1 application Externally twice a day , Notes to Pharmacist: As neededMetoprolol Succinate ER 25 MG Tablet Extended Release 24 Hour 1 tablet Orally Once a day Atorvastatin Calcium 20 MG Tablet 1 tablet Orally Once a day Clopidogrel Bisulfate 75 MG Tablet 1 tablet Orally Once a day Testosterone Enanthate 200 MG/ML Solution 1 ml Intramuscular every 2 weeks Aspirin 325 MG Tablet 1 tablet Orally Once a day Cosopt 22.3-6.8 MG/ML Solution 1 drop into affected eye Ophthalmic Twice a day Glucosamine Sulfate 1000 MG Capsule 1 capsule with a meal Orally Once a day Sbgqetq-Adaqfpwid-Cqiq 333-133-8.3 MG Tablet 1 tablet with a meal Orally Once a day Finasteride 5 MG Tablet 1 tablet Orally once a day every other month Tadalafil 20 MG Tablet 1 tablet Orally Once a day Taking Terbinafine HCl 1 % Cream 1 application Externally twice a day , Notes to Pharmacist: As neededTaking Metoprolol Succinate ER 25 MG Tablet Extended Release 24 Hour 1 tablet Orally Once a day Taking Atorvastatin Calcium 20 MG Tablet 1 tablet Orally Once a day Taking Clopidogrel Bisulfate 75 MG Tablet 1 tablet Orally Once a day Taking Testosterone Enanthate 200 MG/ML Solution 1 ml Intramuscular every 2 weeks Taking Aspirin 325 MG Tablet 1 tablet Orally Once a day Taking Cosopt 22.3-6.8 MG/ML Solution 1 drop into affected eye Ophthalmic Twice a day Taking Glucosamine Sulfate 1000 MG Capsule 1 capsule with a meal Orally Once a day Taking Fzuvgpw-Pfppmewux-Anye 333-133-8.3 MG Tablet 1 tablet with a meal Orally Once a day Taking Finasteride 5 MG Tablet 1 tablet Orally once a day every other month Taking Tadalafil 20 MG Tablet 1 tablet Orally Once a day DiscontinuedTriamcinolone Acetonide 0.1 % Cream 1 application Externally Twice a day Medication List reviewed and reconciled with the patientDiscontinued Triamcinolone Acetonide 0.1 % Cream 1 application Externally Twice a day Medication List reviewed and reconciled with the patient * Allergies: N o Known Drug AllergyNo Known Food Allergyno[Allergies Verified] Objective: * Vitals: H t: 72, Wt:204, BMI:27.66, BP:134/70, HR:61, Temp:97.3, Wt-k.53. * P ast Orders: Lab:URINE DIP STICK * Collection Date 08/05/2024 08/01/2023 11/12/2021 Order Date 08/05/2024 08/01/2023 11/12/2021 Result: Normal SG 1.010 (Ref Range: 1.005 - 1.025) 1.010 (Ref Range: 1.005 - 1.025) 1.010 pH 5.0 (Ref Range: 5.0 - 9.0) 6.5 (Ref Range: 5.0 - 9.0) 5 RUDY Negative (Ref Range: Negative -) 70 (Ref Range: Negative -) neg NIT Negative (Ref Range: Negative -) Negative (Ref Range: Negative -) neg PRO 15 (Ref Range: Negative - Trace) 15 (Ref Range: Negative - Trace) trace GLU Negative (Ref Range: Negative -) Negative (Ref Range: Negative -) normal KET Negative (Ref Range: Negative -) Negative (Ref Range: Negative -) neg UBG 0.2 (Ref Range: 0.1 - 1.8) 0.2 (Ref Range: 0.1 - 1.8) normal AARON Negative (Ref Range: 0.2 - 1.3) Negative (Ref Range: 0.2 - 1.3) neg BLD Negative (Ref Range: Negative -) Negative (Ref Range: Negative -) neg Menstrating NR NR n/a * Lab:Complete Blood Count Aut o Diff * Collection Date 07/30/2024 11/06/2023 07/26/2023 Collection Time 10:29 AM 10:28 AM 09:42 AM Order Date 07/30/2024 11/06/2023 07/26/2023 White Blood Count 6.4 (Ref Range: 4.8-10.8 X10*3/uL) 5.5 (Ref Range: 4.8-10.8 X10*3/uL) 5.1 (Ref Range: 4.8-10.8 X10*3/uL) Red Blood Count 5.36 (Ref Range: 4.60-5.80 X10*6/uL) 5.64 (Ref Range: 4.60-5.80 X10*6/uL) 5.38 (Ref Range: 4.60-5.80 X10*6/uL) Hemoglobin 16.5 (Ref Range: 14.0-18.0 g/dl) 16.9 (Ref Range: 14.0-18.0 g/dl) 16.5 (Ref Range: 14.0-18.0 g/dl) Hematocrit 49.3 (Ref Range: 42.0-52.0 %) 51.0 (Ref Range: 42.0-52.0 %) 49.0 (Ref Range: 42.0-52.0 %) Mean Corpuscular Volume 92.0 (Ref Range: 80.0-98.0 fL) 90.4 (Ref Range: 80.0-98.0 fL) 91.1 (Ref Range: 80.0-98.0 fL) Mean Corpuscular Hemoglobin 30.8 (Ref Range: 27.0-33.0 pg) 30.0 (Ref Range: 27.0-33.0 pg) 30.7 (Ref Range: 27.0-33.0 pg) Mean Corpuscular HGB Conc 33.5 (Ref Range: 31.0-36.0 g/dl) 33.1 (Ref Range: 31.0-36.0 g/dl) 33.7 (Ref Range: 31.0-36.0 g/dl) Red Cell Distribution Width 13.5 (Ref Range: 11.0-16.0 %) 13.6 (Ref Range: 11.0-16.0 %) 13.4 (Ref Range: 11.0-16.0 %) Platelet Count 194 (Ref Range: 160-400 X10*3/uL) 179 (Ref Range: 160-400 X10*3/uL) 184 (Ref Range: 160-400 X10*3/uL) Mean Platelet Volume 12.3 (Ref Range: 9.4-12.4 fL) 12.5 H (Ref Range: 9.4-12.4 fL) 12.4 (Ref Range: 9.4-12.4 fL) Neutrophils Percent Auto 69.8 (Ref Range: 45-73 %) 68.1 (Ref Range: 45-73 %) 67.9 (Ref Range: 45-73 %) Imm Gran Pct Auto 0.2 (Ref Range: 0.0-0.4 %) 0.2 (Ref Range: 0.0-0.4 %) 0.2 (Ref Range: 0.0-0.4 %) Lymphocytes Percent Auto 19.1 L (Ref Range: 20-40 %) 20.2 (Ref Range: 20-40 %) 19.4 L (Ref Range: 20-40 %) Monocytes Percent Auto 8.0 (Ref Range: 2-11 %) 8.1 (Ref Range: 2-11 %) 8.4 (Ref Range: 2-11 %) Eosinophils Percent Auto 2.0 (Ref Range: 0-4 %) 2.3 (Ref Range: 0-4 %) 2.9 (Ref Range: 0-4 %) Basophils Percent Auto 0.9 (Ref Range: 0-2 %) 1.1 (Ref Range: 0-2 %) 1.2 (Ref Range: 0-2 %) NRBC Pct Auto 0.0 (Ref Range: 0.0-0.2 /100WBC) 0.0 (Ref Range: 0.0-0.2 /100WBC) 0.0 (Ref Range: 0.0-0.2 /100WBC) Neutrophils Absolute Auto 4.5 (Ref Range: 2.0-8.3 x10*3/uL) 3.8 (Ref Range: 2.0-8.3 x10*3/uL) 3.5 (Ref Range: 2.0-8.3 x10*3/uL) Imm Gran Abs Auto 0.01 (Ref Range: 0.00-0.03 X10*3/uL) 0.01 (Ref Range: 0.00-0.03 X10*3/uL) 0.01 (Ref Range: 0.00-0.03 X10*3/uL) Lymphocytes Absolute Auto 1.2 (Ref Range: 1.2-4.9 X10*3/uL) 1.1 L (Ref Range: 1.2-4.9 X10*3/uL) 1.0 L (Ref Range: 1.2-4.9 X10*3/uL) Monocytes Absolute Auto 0.5 (Ref Range: 0.1-1.2 X10*3/uL) 0.5 (Ref Range: 0.1-1.2 X10*3/uL) 0.4 (Ref Range: 0.1-1.2 X10*3/uL) Eosinophils Absolute Auto 0.1 (Ref Range: 0.0-0.4 X10*3/uL) 0.1 (Ref Range: 0.0-0.4 X10*3/uL) 0.2 (Ref Range: 0.0-0.4 X10*3/uL) Basophils Absolute Auto 0.1 (Ref Range: 0.0-0.2 X10*3/uL) 0.1 (Ref Range: 0.0-0.2 X10*3/uL) 0.1 (Ref Range: 0.0-0.2 X10*3/uL) NRBC Abs Auto 0.000 (Ref Range: 0.0-0.012 X10*3/uL) 0.000 (Ref Range: 0.0-0.012 X10*3/uL) 0.000 (Ref Range: 0.0-0.012 X10*3/uL) * Lab:Marisol Zamarripa. Suha l Fast * Collection Date 07/30/2024 11/06/2023 07/26/2023 Collection Time 10:29 AM 10:28 AM 09:42 AM Order Date 07/30/2024 11/06/2023 07/26/2023 Sodium 140 (Ref Range: 135-145 mmol/L) 141 (Ref Range: 135-145 mmol/L) 139 (Ref Range: 135-145 mmol/L) Bilirubin Total 1.4 H (Ref Range: 0.0-1.0 mg/dL) 1.5 H (Ref Range: 0.0-1.0 mg/dL) 1.7 H (Ref Range: 0.0-1.0 mg/dL) Aspartate Amino Transferase 27 (Ref Range: 5-37 U/L) 21 (Ref Range: 5-37 U/L) 24 (Ref Range: 5-37 U/L) Alanine Aminotransferase 25 (Ref Range: 0-40 U/L) 23 (Ref Range: 0-40 U/L) 26 (Ref Range: 0-40 U/L) Total Protein 6.5 (Ref Range: 6.5-8.0 g/dL) 6.6 (Ref Range: 6.5-8.0 g/dL) 6.9 (Ref Range: 6.5-8.0 g/dL) Albumin Level 4.3 (Ref Range: 3.5-5.0 g/dL) 4.1 (Ref Range: 3.5-5.0 g/dL) 4.3 (Ref Range: 3.5-5.0 g/dL) Alkaline Phosphatase 45 (Ref Range: 39-117 U/L) 50 (Ref Range: 39-117 U/L) 51 (Ref Range: 39-117 U/L) Potassium 4.6 (Ref Range: 3.3-5.1 mmol/L) 4.9 (Ref Range: 3.3-5.1 mmol/L) 4.4 (Ref Range: 3.3-5.1 mmol/L) Chloride 107 (Ref Range: 96-108 mmol/L) 106 (Ref Range: 96-108 mmol/L) 105 (Ref Range: 96-108 mmol/L) Carbon Dioxide 28 (Ref Range: 22-29 mmol/L) 27 (Ref Range: 22-29 mmol/L) 27 (Ref Range: 22-29 mmol/L) Anion Gap 10 L (Ref Range: 12-20) 13 (Ref Range: 12-20) 11 L (Ref Range: 12-20) Blood Urea Nitrogen 14 (Ref Range: 9-16 mg/dL) 12 (Ref Range: 9-16 mg/dL) 14 (Ref Range: 9-16 mg/dL) Creatinine 1.05 (Ref Range: 0.5-1.4 mg/dL) 0.88 (Ref Range: 0.5-1.4 mg/dL) 0.88 (Ref Range: 0.5-1.4 mg/dL) Estimated Glomerular Filt Rate > 60 > 60 > 60 Glucose Fasting 106 H (Ref Range: 60-99 mg/dL) 108 H (Ref Range: 60-99 mg/dL) 91 (Ref Range: 60-99 mg/dL) Calcium 9.4 (Ref Range: 8.4-10.2 mg/dL) 9.8 (Ref Range: 8.4-10.2 mg/dL) 9.7 (Ref Range: 8.4-10.2 mg/dL) * Lab:Lipid Panel * Collection Date 07/30/2024 07/26/2023 11/02/2021 Collection Time 10:29 AM 09:42 AM Order Date 07/30/2024 07/26/2023 09/06/2021 Triglycerides 82 (Ref Range: <150 mg/dL) 110 (Ref Range: <150 mg/dL) NR Cholesterol 106 (Ref Range: <200 mg/dL) 110 (Ref Range: <200 mg/dL) NR LDL Cholesterol Calculated 51 (Ref Range: <100 mg/dL) 46 (Ref Range: <100 mg/dL) NR HDL Cholesterol 39 L (Ref Range: >40 mg/dL) 42 (Ref Range: >40 mg/dL) NR * Lab:Prostate Specific Antige n * Collection Date 07/30/2024 08/12/2022 08/10/2021 Collection Time 10:29 AM 10:07 AM 08:43 AM Order Date 07/30/2024 08/12/2022 08/10/2021 Prostate Specific Antigen 5.63 H (Ref Range: <0.05-4.0 ng/mL) 3.77 (Ref Range: <0.05-4.0 ng/mL) 3.18 (Ref Range: <0.05-4.0 ng/mL) * Examination: G eneral Examination: GENERAL APPEARANCE: p leasant, well nourished, well developed, in no acute distress, calm and relaxed, overweight, man. HEAD: a traumatic, normocephalic. EYES: e [...] sounds normal, no ascites, no organomegaly, no mass, overweight. RECTAL EXAM: R eferred for colonoscopy. MUSCULOSKELETAL: e xtremities unremarkable, no clubbing, cyanosis or edema. PERIPHERAL PULSES: n ormal. NEUROLOGIC: a lert and oriented, cranial nerves 2-12 grossly intact, deep tendon reflexes 2+ symmetrical, motor strength normal upper and lower extremities, sensory exam intact. PSYCH: a lert, oriented, cognitive function intact, thought process logical, goal directed, speech clear. Assessment: * Assessment: 1. P rostate cancer - C61 (Primary) N otes :He is up-to-date with urology visits. His PSA has risen to about 5. This was forwarded to his urologist. He was notified of the significance of this. He remains asymptomatic. 2 . B enign prostatic hyperplasia, unspecified whether lower urinary tract symptoms present - N40.0 N otes :He rises from sleep once a night. He is taking finasteride. We discussed lifestyle modification as an additional way to control nocturia. 3 . 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 In view of his history of prostate cancer, I referred him back to urology to discuss this matter 4 . H ypogonadism in male - E29.1 N otes :He will continue the testosterone. 5 . O verweight - E66.3 N otes :His body mass index is 26.9. He has gained 1 pound. We discussed his weight loss strategy at length. We made a plan to lose weight at a rate of one half of a pound per week. 6 . F ormer smoker - Z87.891 N otes :He has a plan to prevent relapse in times of stress and illness. 7 . E levated PSA - R97.20 Plan: * Treatment: 2. O thers Continue Terbinafine HCl Cream, 1 %, 1 application, Externally, twice a day; C ontinue Metoprolol Succinate ER Tablet Extended Release 24 Hour, 25 MG, 1 tablet, Orally, Once a day; C ontinue Atorvastatin Calcium Tablet, 20 MG, 1 tablet, Orally, Once a day; C ontinue Clopidogrel Bisulfate Tablet, 75 MG, 1 tablet, Orally, Once a day. * Labs: * L ab: URINE DIP STICK (Collection Date & Time - 08/05/2024) Value Reference Range S G 1.010 1.005 - 1.025 * p H 5.0 5.0 - 9.0 * L EU Negative Negative - * N IT Negative Negative - * P RO 15 Negative - Trace * G YANE Negative Negative - * K ET Negative Negative - * U BG 0.2 0.1 - 1.8 * B IL Negative 0.2 - 1.3 * B LD Negative Negative - * Procedure Codes: 8 1002 URINE-NO MICRO * Preventive Medicine: Counseling: C are goal follow-up plan: Counseling for abnormal BMI given Y es Above Normal BMI Follow-up D ietary management education, guidance, and counseling, Dietary needs education S moking/Tobacco Use Patient counseled on the dangers of tobacco use and urged to quit. 0 08/05/2024 * Follow Up: 8 weeks (Reason: ov review labs) * Images: * Sign off status: Completed true * Provider: Tamar Orlando MD Date: 0 08/05/2024 Generated for Jovitai jyotsna/Esteban/eTransmitting on: 0 10/22/2024 10:34 AM EDT History and Physical Notes * HPI (History of Present Illness) Category Sub-Category Detail Notes Depression Screening PHQ-9 Little inte rest or pleasure in doing things: Not at all Feeling down, depressed, or hopeless: No t at all Trouble falling or staying asleep, or sl eeping too much: Not at all Feeling tired or having little energy: N ot at all Poor appetite or overeating: Not at all Feeling bad about yourself o r that you are a failure, or have let yourself or your family down: Not at all Trouble concentrating on thi ngs, such as reading the newspaper or watching television: Not at all Moving or speaking so slowly that other people could have noticed; or the opposite, being so fidgety or restless that you have been moving around a lot more than usual: Not at all Thoughts that you would be b fern off or of hurting yourself in some way: Not at all Total Score: 0 COVID-19 Screening Questions Have you had any new onset fever, chills, cough, congestion, sore throat, shortness of breath, muscle aches?: No SDOH Questions SDOH Questions In the past year have you or any family members you live with been unable to get any of the following when it was really needed? Check all that apply:: Decline to answer Examination Category Sub-Category Detail Notes General Examination GENERAL APPEARANCE: pleasant , well nourished, well developed, in no acute distress, calm and relaxed, overweight, man HEAD: atraumatic, normocep halic EYES: eomi, perrla, anicte link, conjugate EARS: normal NOSE: septum intact NECK/THYROID: no jugular venous di stention, no carotid bruit, thyroid normal HEART: no clicks, gallops, murmurs, or rubs, regular rhythm, S1, S2 normal, no s3, or vascular bruits LUNGS: clear to auscultatio n ABDOMEN: bowel sounds normal, no ascites, no organomegaly, no mass, overweight NEUROLOGIC: alert and oriented, cranial nerves 2-12 grossly intact, deep tendon reflexes 2+ symmetrical, motor strength normal upper and lower extremities, sensory exam intact SKIN: no suspicious lesion s, anicteric PERIPHERAL PULSES: normal BREASTS: no masses palpable b ilaterally MUSCULOSKELETAL: extremities unremark able, no clubbing, cyanosis or edema LYMPH NODES: no enlarged lymph no mya,spleen normal RECTAL EXAM: Referred for colonos copy PSYCH: alert, oriented, cog nitive function intact, thought process logical, goal directed, speech clear ORAL CAVITY: normal, unremarkable
--- OUTSIDE RECORDS SUMMARY | 2024-08-27 10:30 | XMS_ITS ---
Author Organization Phan Orlando III, MD Address [address] [place] [address] [address] [place] [address] Care Team Providers Care Supervisor Hydrochloric Area Name Role Phone Phan Orlando Primary Care Provider Allergies Allergen (clinical drug ingredient) Drug/Non Drug Allergy documented on EMR Reaction Allergy Type Onset Date Status No Known Drug Allergy Unknown Drug Allergy Active No Known Food Allergy Unknown Drug Allergy Active REASON FOR VISIT Prostate cancer, Elevated PSA, Klinefelter syndrome, Hypogonadism, Atrial fibrillation, Coronary artery disease Medications Medication SIG (Take, Route, Frequency, Duration) Notes Start Date End Date Status Finasteride 5 MG 1 tablet Orally Once a day Active Tzifhmv-Ztfvfiefp-Yxuk 333-133-8.3 MG 1 tablet with a meal Orally Once a day Active Glucosamine Sulfate 1000 MG 1 capsule with a meal Orally Once a day Active Cosopt 22.3-6.8 MG/ML 1 drop into affect ed eye Ophthalmic Twice a day Active Aspirin 325 MG 1 tablet Orally Once a day Active Clopidogrel Bisulfate 75 MG 1 tablet Orally Once a day A ctive Atorvastatin Calcium 20 MG 1 tablet Orally Once a day Active Metoprolol Succinate ER 25 MG 1 tablet Orally Once a day A ctive Terbinafine HCl 1 % 1 application Supervisor Slitting And Shipping ally twice a day 07/29/2021 Active Testosterone Enanthate 200 MG/ML 1 ml Intramuscular every 2 weeks 12/05/2017 Active Tadalafil 20 MG 1 tablet Orally Once a day Active Social History Tobacco Use: Social History Observation Description Date Details (start date - stop date) Former Smoker NA - NA Sex Assigned At : Social History Observation Description Sex Assigned At Male Tobacco Control (Standard) Question Answer Notes Tobacco use: Former smoker How long has it been since you last smoked? Valerie ter than 10 years Additional Findings: Tobacco non-user Ex-cigaret te smoker Vital Signs Temperature 97.5 degrees Fahrenheit 08/28/19 25 Blood pressure systolic 133 mm Hg 08/28/19 25 Blood pressure diastolic 58 mm Hg 025 Heart Rate 79 /min 08/27/2024 Height 72 in 08/27/2024 Weight 199 lbs 08/27/2024 BMI 26.99 kg/m2 08/27/2024 Encounters Encounter Location Date Provider Diagnosis Phan Orlando III, MD [address] [place] [address] [address], [place] [address] 08/27/2024 Phan Orlando Benign prostatic hyperplasia, unspecified whether lower urinary tract symptoms present N40.0 ; Prostate cancer C61 ; 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 His PSA Was 5.63. A repeat was 4.7. This was forwarded to his urologist. He was notified of the significance of this. He remains asymptomatic. 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 In view of his history of prostate cancer, I referred him back to urology to discuss this matter 08/27/2024 Hypogonadism in male (ICD-10 - E29.1) He will continue the testosterone. 08/27/2024 Overweight (ICD-10 - E66.3) His body mass index is 26.9. He has gained 1 pound. We discussed his weight loss strategy at length. We made a plan to lose weight at a rate of one half of a pound per week. 08/27/2024 Coronary artery disease involving [place] coronary artery of [place] heart without angina pectoris (ICD-10 - I25.10) He is free of angina palpitations or syncope. No change in his medications was needed. 08/27/2024 Former smoker (ICD-10 - Z87.891) He has a plan to prevent relapse in times of stress and illness. 08/27/2024 History of atrial fibrillation (ICD-10 - Z86.79) He was in a regular rhythm today with no murmurs. Plan Of Treatment Medication Medication Name Sig Start Date Stop Date Notes Finasteride 5 MG 1 tablet Orally Once a day Qdulkke-Garionixc-Aztf 333-133-8.3 MG 1 tablet with a meal Orally Once a day Glucosamine Sulfate 1000 MG 1 capsule wi th a meal Orally Once a day Cosopt 22.3-6.8 MG/ML 1 drop into affect ed eye Ophthalmic Twice a day Aspirin 325 MG 1 tablet Orally Once a day Clopidogrel Bisulfate 75 MG 1 tablet Orally Once a day Atorvastatin Calcium 20 MG 1 tablet Orally Once a day Metoprolol Succinate ER 25 MG 1 tablet Orally Once a day Terbinafine HCl 1 % 1 application Supervisor Slitting And Shipping ally twice a day 07/29/2021 Testosterone Enanthate 200 MG/ML 1 ml Intramuscular every 2 weeks 12/05/2017 Tadalafil 20 MG 1 tablet Orally Once a day Pending Test Test Name Order Date PROFILE, RANDOM (COMPREHENSIVE METABOLIC ) 08/27/2024 PSA, TOTAL 08/27/2024 CBC w DIFF 08/27/2024 Next Appt Details Follow Up: 2 Months, Reason: OV Provider Name:Phan Orlando, 11/01/2024 10:15:00 AM, [address] [place] [address] [address], [place], [address], Provider Name:Phan Orlando, 08/06/2025 02:00:00 PM, [address] [place] [address] [place], [address], Progress Notes * ANTELMO SZYMANSKI MDOB:1945 (79 yo M)Acc No.[id number]:08/27/2024 Progress Notes Patient: ANTELMO VAUGHAN Provider: Tamar Orlando MD :1945 A ge:79 Y S ex:Male Date:08/27/2024 Address:[address] [place] [address] , [id number] Subjective: * Chief Complaints: * P rostate cancerElevated PSAKlinefelter syndromeHypogonadismAtrial fibrillationCoronary artery disease * HPI: C OVID-19 Screening: He was seen August 06, 2019 for his annual physical examination.? A previous PSA was 3.9. The value at the recent visit was 5.63. It was repeated and is 4.7. These values were referred to his urologist. No change in his regimen was necessary today. He seems healthy and well. Questions H ave you had any new onset fever, chills, cough, congestion, sore throat, shortness of breath, muscle aches? N o * ROS: G eneral/Constitutional: pain o nly [...] 2012colonoscopy, positive tubular adenoma, Dr. Phan Daily, [facility] 2012biopsy of prostate, positive for adenocarcinoma, Gale 3+4 = 7, Dr. Haji 06/2017colonoscopy, Dr. Phan Daily, [facility] 2007Stent placement right artery ardiac catheterization with stents on [facility] ilateral Carpaltunnel Surgery 04/2022 * Hospitalization/Major Diagno stic Procedure: [...] dditional Findings: Tobacco non-user E x-cigarette smoker P atient stopped smoking 17 years ago and drinks 2 beers daily. * Medications: T akingTerbinafine HCl 1 % Cream 1 application Externally twice a day Metoprolol Succinate ER 25 MG Tablet Extended [...] with a meal Orally Once a day Yuadjog-Duszrujcr-Pgdc 333-133-8.3 MG Tablet 1 tablet with a meal Orally Once a day Finasteride 5 MG Tablet 1 tablet Orally Once a day Tadalafil 20 MG Tablet 1 tablet Orally Once a day Medication List reviewed and reconciled with the patientTaking Terbinafine HCl 1 % Cream 1 application Externally twice a day Taking Metoprolol Succinate ER 25 MG Tablet Extended [...] a meal Orally Once a day Taking Fhkyydr-Wymjynfrw-Kaqh 333-133-8.3 MG Tablet 1 tablet with a meal Orally Once a day Taking Finasteride 5 MG Tablet 1 tablet Orally Once a day Taking Tadalafil 20 MG Tablet 1 tablet Orally Once a day Medication List reviewed and reconciled with the patient * Allergies: N o Known Drug AllergyNo Known Food Allergyno[Allergies Verified] Objective: * Vitals: H t: 72, Wt:199, BMI:26.99, BP:133/58, HR:79, Temp:97.5, Wt-k.26. * P ast Orders: Lab:Complete Blood Count Aut o Diff * [...] 0.000 (Ref Range: 0.0-0.012 X10*3/uL) * Lab:Marisol Sharma * Collection Date 07/30/2024 11/06/2023 07/26/2023 Collection [...] Lab:Prostate Specific Antige n * Collection Date 08/13/2024 07/30/2024 08/12/2022 Collection Time 09:48 AM 10:29 AM 10:07 AM 08:43 AM Order Date 08/13/2024 07/30/2024 08/12/2022 08/10/2021 Prostate Specific Antigen TNP (Ref Range: <0.05-4.0 ng/mL) 5.63 H (Ref Range: <0.05-4.0 ng/mL) 3.77 (Ref Range: <0.05-4.0 ng/mL) 3.18 (Ref Range: <0.05-4.0 ng/mL) * Lab:URINE DIP STICK * Collection Date 08/05/2024 [...] -) neg Menstrating NR NR n/a * Lab:PSA Free and Total * Collection Date 08/13/2024 11/06/2023 07/26/2023 Collection Time 02:03 PM 10:28 AM 12:54 PM Order Date 08/13/2024 11/06/2023 07/26/2023 Prostate Specific Ag Total 4.7 A (Ref Range: < OR = 4.0 ng/mL) 3.9 (Ref Range: < OR = 4.0 ng/mL) 4.2 A (Ref Range: < OR = 4.0 ng/mL) Percent Free Prostate Spec Ag 17 A (Ref Range: >25 % (calc)) 26 (Ref Range: >25 % (calc)) 19 A (Ref Range: >25 % (calc)) Free Prostate Spec Ag 0.8 (Ref Range: ng/mL) 1.0 (Ref Range: ng/mL) 0.8 (Ref Range: ng/mL) * Lab:PSA,Total (Free>4and<10) * Collection Date 08/13/2024 07/26/2023 08/10/2021 Collection Time 09:48 AM 09:42 AM 08:43 AM Order Date 08/13/2024 07/26/2023 08/10/2021 PSA,Total (Free>4and<10) 5.26 H (Ref Range: 0.00-4.00 ng/mL) 4.30 H (Ref Range: 0.00-4.00 ng/mL) 3.18 (Ref Range: 0.00-4.00 ng/mL) * Examination: G eneral Examination: GENERAL [...] sounds normal, no ascites, no organomegaly, no mass. RECTAL EXAM: n ot examined. MUSCULOSKELETAL: e xtremities unremarkable, no clubbing, cyanosis or edema. PERIPHERAL PULSES: n ormal. NEUROLOGIC: a lert and oriented, cranial nerves 2-12 grossly intact, deep tendon reflexes 2+ symmetrical, motor strength normal upper and lower extremities, sensory exam intact. PSYCH: a lert, oriented. Assessment: * Assessment: 1. P rostate cancer - C61 (Primary) N otes :He is up-to-date with urology visits. His PSA Was 5.63. A repeat was 4.7. This was forwarded to his urologist. He was notified of the significance of this. He remains asymptomatic. 2 . B enign prostatic hyperplasia, unspecified whether lower urinary tract symptoms present - N40.0 3 . 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 6 . C oronary artery disease involving [place] coronary artery of [place] heart without angina pectoris - I25.10 N otes :He is free of angina palpitations or syncope. No change in his medications was needed. 7 . F ormer smoker - Z87.891 N otes :He has a plan to prevent relapse in times of stress and illness. 8 . H istory of atrial fibrillation - Z86.79 N otes :He was in a regular rhythm today with no murmurs. Plan: * Treatment: 2. O verweight L AB: PROFILE, RANDOM (COMPREHENSIVE METABOLIC) L AB: PSA, TOTAL L AB: CBC w DIFF 3. H istory of atrial fibrillation L AB: PROFILE, RANDOM (COMPREHENSIVE METABOLIC) L AB: PSA, TOTAL L AB: CBC w DIFF 4. O thers Continue Terbinafine HCl Cream, [...] tobacco use and urged to quit. 0 08/27/2024 * Follow Up: 2 Months (Reason: OV) * Images: * Sign off status: Completed true * Provider: Tamar Orlando MD Date: 08/27/2024 Generated for Nacho goyal/Esteban/Meryransmitting on: 10/22/2024 10:33 AM EDT History and Physical Notes * HPI (History of Present Illness) Category Sub-Category Detail Notes COVID-19 Screening Questions Have you had any new onset fever, chills, cough, congestion, sore throat, shortness of breath, muscle aches?: No Examination Category Sub-Category Detail Notes General Examination [...] normal, no ascites, no organomegaly, no mass NEUROLOGIC: alert and oriented, cranial nerves 2-12 [...]
--- OUTSIDE RECORDS SUMMARY | 2024-09-24 07:02 | XMS_ITS ---
Author Organization Phan Orlando III, MD Address [address] [place] [address] [place] [address] Care Team Providers Care Group Social Worker Name Role Phone Phan Orlando Primary Care Provider [phone] REASON FOR VISIT refill for Tadalafil Medications Medication SIG (Take, Route, Fr equency, Duration) Notes Start Date End Date Status Tadalafil 20 MG 1 tablet for ED Oral ly Once a day for 30 days Active Social History Sex Assigned At : Social History Observation Description Sex Assigned At Male Encounters Encounter Location Date Provider Diagnosis Phan Orlando III, MD [address] [place] [address] [place] [address] 09/24/2024 Phan Orlando Benign prostatic hyperplasia, unspecified [...] 30 days Next Appt Details Provider Name:Phan Orlando, 11/01/2024 10:15:00 AM, [address] [place] [address] [place], [address], Provider Name:Phan Orlando, 08/06/2025 02:00:00 PM, [address] [place] [address] [place], [address], Progress Notes * ANTELMO SZYMANSKI MDOB:1945 (79 yo M)Acc No.[id number]:09/24/2024 Patient: Lissette YUN[address] ANTELMO Ness :1945 A ge:79 Y S ex:Male Address:[address] [place] [address] , [place], [address] * Refills Refill Tadalafil Tablet, 20 MG, Orally, 30 Tablet, 1 tablet for ED, Once a day, 30 days, Refills=11 * true * Date: Generated for Nacho goyal/Esteban/Dominicitting on: 0 10/22/2024 10:33 AM EDT
--- OUTSIDE RECORDS SUMMARY | 2024-10-22 10:33 | XMS_ITS | Patient Health Record ---
Author Organization [facility] Address [address] [address] Care Team Providers Care Environmental Science Program Director Name Role Phone NO PCP, NO PCP Primary Care Provider Neeta Cole Unavailable [phone] Allergies No Known Allergies Reason For Referral No Information Medications Medication SIG (Take, Route, Frequency, Duration) Notes Start Date End Date Status Atorvastatin Calcium 20 mg 1 tab(s) oral ly once a day; Duration: 90 days Active Plavix 75 mg 1 tab(s) orally once a day; Duration: 90 days Active timolol ophthalmic hemihydrate 0.25% 1 gtt in each affected eye 2 times a day Active finasteride 5 mg 1 tab(s) orally once a day; Duration: 30 day(s) 25MG Active Aspirin EC 81 mg 1 tab(s) orally once a day; Duration: 30 day(s) Active Metoprolol Succinate ER 25 mg TAKE 1 TABLET DAILY; Duration: 90 Active Social History Tobacco Use: Social History Observation Description Date Details (start date - stop date) Former Smoker NA - NA Tobacco use Question Answer Notes Patient is a: former smoker previous tobacco quit 20+ years ago 1/2ppd x20 years Problems Problem Type SNOMED Code ICD Code Onset Dates Problem Status W/U Status Risk Notes Problem Atherosclerotic heart disease of [place] coronary artery without angina pectoris (487211966723820) Atherosclerotic heart disease of [place] coronary artery without angina pectoris (I25.10) Active confirmed Problem Chest pain (68283290) Chest pain, unspecified (R07.9) Active confirmed Problem Angina pectoris (991196899) Anginal equivalent (I20.8) Active confirmed Vital Signs Heart Rate 58 /min 02/09/2024 Oximetry 97 /min 02/09/2024 Blood pressure diastolic 80 mm Hg 02/09/2024 Height 71 in 02/09/2024 Blood pressure systolic 140 mm Hg 02/09/2024 Weight 192 lbs 02/09/2024 BMI 26.78 kg/m2 02/09/2024 Encounters Encounter Location Date Provider Diagnosis [facility] [address] [place] [address] 02/09/2024 Neeta Cherry Abnormal EKG R94.31 ; Atherosclerotic heart disease of [place] coronary artery without angina pectoris I25.10 and Elevated blood-pressure reading, without diagnosis of hypertension R03.0 Assessments Encounter Date Diagnosis (ICD Code) Assessment Notes Treatment Notes Treatment Clinical Notes Section Notes 02/09/2024 Abnormal EKG (ICD-10 - R94.31) 1) EKG SR PRWP early repol NSST changes 2)EKG: SR with ST depression in stress echo EKGs 02/09/2024 Atherosclerotic heart disease of [place] coronary artery without angina pectoris (ICD-10 - [...] Pending Test Test Name Order Date EKG ([id number]) 02/02/2023 EKG ([id number]) 02/09/2024 EKG 05/07/2021 Next Appt Details Provider Name:Neeta Cherry, 1 03/11/2024 10:00:00 AM, [address], [address], [place], [address], Insurance Providers Payer Name Payer Address Payer Phone Subscriber Number Group Number Insured Name Patient Relationship to Insured Coverage Start Date Coverage End Date Medicare Part B [address] [address] [place] [address] [phone] [id number] ANTELMO BLANC Self - patient is the insured [facility] [address] [address] [place] [address] [phone] [id number] ANTELMO BLANC Self - patient is the insured Medical (General) History Medical History History ICD Code CAD s/p desx3 RCA xience 3.5x28, xience 3.5x23 , xience 3.5x12 prostate ca glaucoma hx of afibb s/p ablation many years ago Surgical History Surgery Date(Month/Year) afibb ablation cholecystectomy appendectomy carpal tunnel
--- OUTSIDE RECORDS SUMMARY | 2024-10-22 10:33 | XMS_ITS | Clinical Summary ---
Author Organization [facility] Address [address] [place] [id number] Care Team Providers Care Acetylene Gas Compressor Name Role Phone Unavailable Primary Care Provider [...]
--- OUTSIDE RECORDS SUMMARY | 2024-10-22 10:34 | XMS_ITS | Clinical Summary ---
Author Organization 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 Not on osbaldo e 07/10/2022 Are you concerned about learning? Not on file 07/10/2022 No 07/10/2022 No 07/10/2022 Digital Access Answer Date Recorded No 07/23/2022 No 07/23/2022 No 07/23/2022 Reliable internet access at home? Not on file 07/23/2022 Device with a working camera? Not on file Sex and Gender Information Value Date Recorded Sex Assigned at Not on file Legal Sex Male 5:22 PM EST Gender Identity Not on file Sexual Orientation Not on file Plan of Treatment Health Maintenance Due Date Last Done Comments DEPRESSION SCREENING 1957 SMOKING Hx and SMOKELESS TOBACCO SCREENING 1958 HEPATITIS C SCREENING 1963 ZOSTER VACCINES (2 of 3) 01/20/2016 11/25/2015 RSV VACCINE (1 - 1-dose 75+ series) 2020 COVID-19 VACCINE (2 - 2023-2 5 season) 2023 08/22/2020 Adult Td,Tdap Booster 06/28/2025 06/29/2015 LIPID PANEL 10/29/2026 10/29/2021 PNEUMOCOCCAL VACCINES (50+ years) Completed 11/29/2016, 11/25/2015 HEPATITIS A VACCINES Aged Out No long er eligible based on patient's age to complete this topic HIB VACCINES Aged Out No longer eligi ble based on patient's age to complete this topic MENINGOCOCCAL VACCINES (ACWY) Aged Out No longer eligible based on patient's age to complete this topic MENINGOCOCCAL VACCINES (B) Aged Out N o longer eligible based on patient's age to complete this topic Medical Devices Not on file Procedures Procedure Name Priority Date/Time Associated Diagnosis Comments LIPID PANEL Routine 10/29/2021 12:53 PM EDT Benign prostatic hyperplasia, unspecified whether lower urinary tract symptoms present Overweight from Last 3 Months or Most Recently Relevant to Health Maintenance Results * (ABNORMAL) Lipid panel (10/29/2021 12:53 PM EDT) HDL 37 mg/dL [facility] Comment: Interpretation <40 mg/dL: Low HDL cholesterol (major risk factor for CHD) Greater than or equal to 60 mg/dL: High HDL cholesterol ( negative risk factor for CHD) HDL - cholesterol is affected by a number of factors, e.g. smoking, excerise, hormones, sex and age. CHOLESTEROL 146 0 - 240 mg/dL [facility] TRIGLYCERIDES 193(H) 30 - 160 mg/dL [facility] LDL 70 50 - 129 mg/dL [facility] Comment: LDL levels in terms of risk for coronary heart disease: <100 mg/dL: Optimal 100-129 mg/dL: Near or above optimal 130-159 mg/dL: Borderline high 160-189 mg/dL: High >190 mg/dL: Very High CARDIAC RISK RATIO 3.9 3.4 - 5.0 [facility] Blood 10/29/2021 12:5 3 PM EDT 10/29/2021 6:06 PM EDT us Phan Orlando MD LAB BLOOD ORDERABLES Final Result [facility] [address] [place] [address] from Last 3 Months or Most Recently Relevant to Health Maintenance Insurance MEDICARE PART A & B [employer] MEDICARE SUPPLEMENT MEDICARE PART A & B [employer] MEDICARE SUPPLEMENT MEDICARE PART A & B [facility] MEDICARE SUPPLEMENT MEDICARE PART A & B [employer] MEDICARE SUPPLEMENT MEDICARE PART A & B [facility] SUPPLEMENT MEDICARE PART A & B [employer] [facility] [place] [id number] MEDICARE PART A & B [facility] EXTENSION MEDICARE SUPPLEMENT MEDICARE PART A & B [facility] EX[employer]ENSION MEDICARE SUPPLEMENT MEDICARE PART A & B [facility] [employer] MEDICARE SUPPLEMENT Care Teams 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 It is not the complete legal health record.[facility]
--- OUTSIDE RECORDS SUMMARY | 2024-10-22 10:34 | XMS_ITS | Patient Health Record ---
Author Organization [facility] Address [address] [place] [address] Care Team Providers Care Blood Typer Name Role Phone Phan Orlando MD Primary Care Provider UnavailPhan Ford Unavailable [phone] Allergies No Known Allergies Results Component Value Reference Range Notes Pathology (Not yet reviewed by provider) Interpretation: Performing Lab:[facility], [address] [place] [id number] Notes/Report: Reason For Referral No Information Medications Medication [...] Problem History of adenomatous polyp of colon (210383217) History of adenomatous polyp of colon (Z86.010) Active confirmed Problem Diverticular disease of colon (194514504) Diverticulosis of large intestine without perforation or abscess without bleeding (K57.30) Active confirmed Problem Abnormal feces (614343072) Positive colorectal cancer screening using Cologuard test (R19.5) Active confirmed Vital Signs Blood pressure diastolic 00 mm Hg 11/07/2023 Height 71 in 11/07/2023 Blood pressure systolic 00 mm Hg 11/07/2023 Weight 198 lbs 11/07/2023 BMI 27.61 kg/m2 11/07/2023 Encounters Encounter Location Date Provider Diagnosis [facility] Outpatient [address] [place], [place] [id number] 11/23/2023 Phan Daily Colon cancer screeni ng Z12.11 ; Colon polyps K63.5 ; Heme positive stool R19.5 ; Diverticulosis of large intestine without perforation or abscess without bleeding K57.30 and Other hemorrhoids K64.8 [facility] [address] [place] [address] 11/07/2023 Phan Daily Positive colorectal cancer screening using Cologuard test R19.5 and History of adenomatous polyp of colon Z86.010 [facility] [address] [place] [address] 11/13/2023 Phan Daily Assessments Encounter Date Diagnosis [...] and/or early detection. He is leaving for [place] on November 29 and will not be returning until June. Therefore, I shall try to find a spot to do his procedure before he leaves in a few weeks. I have given him the below instructions regarding adjustment of his medications for the procedure and will obtain a note from his street commissioner in [place] as well. Given his negative stress test [...] try to get a letter from your [place] street commissioner Overall, Fredi appears well. Given his previous history of tubular adenomas, his last colonoscopy being over 10 years ago, and the recent positive Cologuard test, I did recommend he undergo a colonoscopy for further evaluation. We did review the rationale for that in regard to colorectal cancer prevention and/or early detection. He is leaving for [place] on November 29 and will not be returning until June. Therefore, I shall try to find a spot to do his procedure before he leaves in a few weeks. I have given him the below instructions regarding adjustment of his medications for the procedure and will obtain a note from his street commissioner in [place] as well. Given his negative stress test [...] Date MEDICARE OF [place] [address] [place] [address] [id number] ANTELMO BLANC Self - patient is the insured [employer] ([employer]) [address] [place] [address] [phone] [id number] ANTELMO BLANC Self - patient is the insured Medical (General) History Medical History History ICD Code Colonoscopy 06-23-2006 small tubular trent omid removed Atrial fibrillation-resolved with cardia c ablation in [place] Glaucoma Denies MT,DM,CVA,Lung disease,renal dise ase Colonoscopy in 2011 with small tubular a denomas removed CAD-3 stents in RCA in 2021 in [place]. Had a neg ETT in 04/2023 in [place] BPH Surgical History Surgery Date(Month/Year) Appy Knee surgery CCY Bilateral carpal tunnel Trigger fingers
--- OUTSIDE RECORDS SUMMARY | 2024-10-22 10:34 | XMS_ITS | Clinical Summary ---
Author Organization [facility] Address [address] [place] [address] Care Team Providers Care Shelving Supervisor Name Role Phone Unavailable Primary Care Provider [...]
--- OUTSIDE RECORDS SUMMARY | 2024-10-22 10:34 | XMS_ITS | Patient Health Record ---
Author Organization Phan Orlando III, MD Address [address] [place] [address] [address] [place] [address] Care Team Providers Care Strategic Account Manager Name Role Phone Phan Orlando Primary Care Provider Allergies Allergen (clinical drug ingredient) Drug/Non Drug Allergy documented on EMR Reaction Allergy Type Onset Date Status No Known Drug Allergy Unknown Drug Allergy Active No Known Food Allergy Unknown Drug Allergy Active Results Component Value Reference Range Notes Complete Blood Count Auto Di ff Reviewed date:11/12/2023 07:29:58 AM Interpretation: Performing Lab:[facility], [address] [place] [phone] Notes/Report: White Blood Count 5.5 4.8-10.8 X10*3/uL [...] NRBC Abs Auto 0.000 0.0-0.012 X10*3/uL Comprehensive [place]. Panel Fa st Reviewed date:11/12/2023 07:29:58 AM Interpretation: Performing Lab:[facility], [address] [place] [phone] Notes/Report: Sodium 141 135-145 mmol/L Potassium 4.9 3.3-5.1 mmol/L Chloride 106 96-108 mmol/L Carbon Dioxide 27 22-29 mmol/L Anion Gap 13 12-20 Blood Urea Nitrogen 12 9-16 mg/dL Creatinine 0.88 0.5-1.4 mg/dL Estimated Glomerular Filt Rate > 60 NOTE: For -[place] individuals, multiply the result by 1.210. Chronic [...] Total Reviewed date:11/12/2023 07:29:58 AM Interpretation: Performing Lab:[facility], [address] [place] [phone] Notes/Report: Prostate Specific Ag Total 3.9 < [...] 30 93 9 (3)Catalona et al.:KASI 277: 9428-8190 (1996) (4)Catalona et al.:KASI 279: 9496-7026 (1997) (x)These estimates vary with age, ethnicity, [...] mind. PSA was performed using the [place] Immunoassay method. Values obtained from different assay methods cannot be used interchangeably. PSA levels, regardless of value, should not be interpreted as absolute evidence of the presence or absence of disease. THIS TEST WAS PERFORMED AT: [facility] [address] [phone] WAGNER POLANCO MD Free Prostate Spec Ag 1.0 Thyroid Stimulating Hormone Reviewed date:11/12/2023 07:29:58 AM Interpretation: Performing Lab:[facility], [address] [place] [phone] Notes/Report: Thyroid Stimulating Hormone 4.07 0.32-4.0 uIU/mL Note: A sustained TSH level above 2.5 uIU/mL may warrant further investigation. TSH 3rd Generation ([facility]) Pathology Reviewed date:02/21/2024 08:18:05 AM Interpretation: Performing Lab:[facility], [address] [place] [phone] Notes/Report: Name: Antelmo Szymanski Age/Sex: 78/M : 1945 Unit#: [id number] Attend Dr: Phan Daily MD Re11/23/23 Status: [facility] Location: [facility] Disch: SPEC : [id number] RECD: 11/23/23 STATUS: CAROLYN BELL NUM: [id number] JUNIOR: 11/23/23 [facility] DR: Phan Daily MD ENTERED: 11/23/23 SP [...] Antelmo Szymanski Age/Sex: 78/M : 1945 Unit#: [id number] Attend Dr: Phan Daily MD Re11/23/23 Status: [facility] Location: [facility] Disch: SPEC : [id number] RECD: 11/23/23-1441 STATUS: CAROLYN BELL NUM: [id number] JUNIOR: 11/23/23-[address]: Phan Daily MD ENTERED: 11/23/23-1443 SP TYPE: Surgical OTHR DR: Phan Orlando MD ORDERED: HE Stain/12, Gross Micro L4/4 Gross Description (Continued) papular tissue fragments each measuring 0.6 cm, submitted in toto in a cassette labeled D. CEDS Copies To: Phan Orlando MD [address] [place] [address], [address] [place] [address] Phan Daily MD [facility] [address] [place] [address] Signed (signature on file) John Miller MD 11/24/23 1438 END OF REPORT Complete Blood Count Auto Di ff Reviewed date:08/07/2024 01:08:10 PM Interpretation: Performing Lab:[facility], [address] [place] [address], [place] [address] Notes/Report: White Blood Count 6.4 4.8-10.8 X10*3/uL Red Blood Count 5.36 4.60-5.80 X10*6/uL Hemoglobin 16.5 14.0-18.0 g/dl Hematocrit 49.3 42.0-52.0 % Mean Corpuscular Volume 92.0 80.0-98.0 fL Mean Corpuscular Hemoglobin 30.8 27.0-33.0 pg Mean Corpuscular HGB Conc 33.5 31.0-36.0 g/dl Red Cell Distribution Width 13.5 11.0-16.0 % Platelet Count 194 160-400 X10*3/uL Mean Platelet Volume 12.3 9.4-12.4 fL Neutrophils Percent Auto 69.8 45-73 % Imm Gran Pct Auto 0.2 0.0-0.4 % Lymphocytes Percent Auto 19.1 20-40 % Monocytes Percent Auto 8.0 2-11 % Eosinophils Percent Auto 2.0 0-4 % Basophils Percent Auto 0.9 0-2 % NRBC Pct Auto 0.0 0.0-0.2 /100WBC Neutrophils Absolute Auto 4.5 2.0-8.3 x10*3/u L Imm Gran Abs Auto 0.01 0.00-0.03 X10*3/uL Lymphocytes Absolute Auto 1.2 1.2-4.9 X10*3/u L Monocytes Absolute Auto 0.5 0.1-1.2 X10*3/uL Eosinophils Absolute Auto 0.1 0.0-0.4 X10*3/u L Basophils Absolute Auto 0.1 0.0-0.2 X10*3/uL NRBC Abs Auto 0.000 0.0-0.012 X10*3/uL Comprehensive [place]. Panel Fa st Reviewed date:08/07/2024 01:08:10 PM Interpretation: Performing Lab:[facility], [address] [place] [phone] Notes/Report: Sodium 140 135-145 mmol/L Potassium 4.6 3.3-5.1 mmol/L Chloride 107 96-108 mmol/L Carbon Dioxide 28 22-29 mmol/L Anion Gap 10 12-20 Blood Urea Nitrogen 14 9-16 mg/dL Creatinine 1.05 0.5-1.4 mg/dL Estimated Glomerular Filt Rate > 60 Chronic Kidney Disease: Estimated GFR < 60 mL/min/1.73m2 Severe Kidney Disease: Estimated GFR < 15 mL/min/1.73m2 Glucose Fasting 106 60-99 mg/dL A fasting glucose from 100-125 mg/dl is considered impaired (pre-diabetes). Calcium 9.4 8.4-10.2 mg/dL Bilirubin Total 1.4 0.0-1.0 mg/dL Aspartate Amino Transferase 27 5-37 U/L Alanine Aminotransferase 25 0-40 U/L Total Protein 6.5 6.5-8.0 g/dL Albumin Level 4.3 3.5-5.0 g/dL Alkaline Phosphatase 45 39-117 U/L Lipid Panel Reviewed date:08/07/2024 01:08:10 PM Interpretation: Performing Lab:[address] [phone] Notes/Report: Triglycerides 82 <150 mg/dL Desirable Triglyceride: less than 150 mg/dL Borderline High Triglyceride 150-199 mg/dL High Triglyceride: 200-499 mg/dL Very High Triglyceride: greater than or equal to 5OO mg/dL Cholesterol 106 <200 mg/dL Desirable Cholesterol: less than 200 mg/dL Borderline High Cholesterol: 200-239 mg/dL High Cholesterol: greater than 239 mg/dL LDL Cholesterol Calculated 51 <100 mg/dL Desirable LDL: less than 100 mg/dL Near Optimal/Above Optimal LDL: 110-129 mg/dL Borderline High LDL: 130-159 mg/dL High LDL: 160-189 mg/dL Very High LDL: greater than or equal to 190 mg/dL HDL Cholesterol 39 >40 mg/dL Desirable HDL: greater than 40 mg/dL Note: This HDL assay may give artificially low results in patients with liver disease. Prostate Specific Antigen Reviewed date:08/07/2024 01:08:10 PM Interpretation: Performing Lab:[address] [phone] Notes/Report: Prostate Specific Antigen 5.63 <0.05-4.0 ng/mL PSA methodology: [employer] i Chemiluminescent Microparticle Immunoassay (CMIA) URINE DIP STICK Reviewed date:08/05/2024 02:33:35 PM Interpretation: Performing Lab: Notes/Report: SG 1.010 1.005 - 1.025 pH 5.0 5.0 - 9.0 RUDY Negative Negative - NIT Negative Negative - PRO 15 Negative - Trace GLU Negative Negative - KET Negative Negative - UBG 0.2 0.1 - 1.8 AARON Negative 0.2 - 1.3 BLD Negative Negative - PSA Free and Total Reviewed date:08/28/2024 03:57:02 PM Interpretation: Performing Lab:[facility], [address] [place] [phone] Notes/Report: Prostate Specific Ag Total 4.7 < OR = 4.0 ng/mL Percent Free Prostate Spec Ag 17 >25 % (calc) PSA(ng/mL) Free PSA(%) Estimated(x) [...] 30 93 9 (3)Catalona et al.:KASI 277: 0597-0824 (1996) (4)Catalona et al.:KASI 279: 2772-7455 (1997) (x)These estimates vary with age, ethnicity, [...] of disease. THIS TEST WAS PERFORMED AT: [facility] [address] [phone] WAGNER POALNCO MD Free Prostate Spec Ag 0.8 PSA,Total (Free>4and<10) Reviewed date:08/28/2024 03:57:02 PM Interpretation: Performing Lab:[facility], [address] [place] [phone] Notes/Report: PSA,Total (Free>4and<10) 5.26 0.00-4.00 ng/mL PSA methodology: [employer] Al[employer] i Chemiluminescent Microparticle Immunoassay (CMIA) Prostate Specific Antigen Reviewed date:08/28/2024 03:57:02 PM Interpretation: Performing Lab:[facility], [address] [place] [phone] Notes/Report: Prostate Specific Antigen TNP <0.05-4.0 ng/mL DUPL ORDER Reason For Referral No Information Medications Medication SIG (Take, Route, Frequency, Duration) Notes Start Date End Date Status Clopidogrel Bisulfate 75 MG 1 tablet Orally Once a day A ctive Atorvastatin Calcium 20 MG 1 tablet Orally Once a day Active Metoprolol Succinate ER 25 MG 1 tablet Orally Once a day A ctive Triamcinolone Acetonide 0.1 % APPLY 1 APPLICATION EXTERNALLY TWICE A DAY for 30 Active Terbinafine HCl 1 % 1 application [facility] ally twice a day 07/29/2021 Active Finasteride 5 MG 1 tablet Orally Once a day Active Qnrhmns-Rpxgnguwg-Opev 333-133-8.3 MG 1 tablet with a meal Orally Once a day Active Glucosamine Sulfate 1000 MG 1 capsule with a meal Orally Once a day Active Cosopt 22.3-6.8 MG/ML 1 drop into affect ed eye Ophthalmic Twice a day Active Aspirin 325 MG 1 tablet Orally Once a day Active Tadalafil 20 MG 1 tablet for ED Oral ly Once a day for 30 days Active Testosterone Enanthate 200 MG/ML 1 ml Intramuscular every 2 weeks 12/05/2017 Active Immunizations Vaccine Route Administration Date Status [...] Never (0 point) Points 2 Interpretation Negative Problems Problem Type SNOMED Code ICD Code Onset Dates Problem Status W/U Status Risk Notes Problem 9823340 Former smoker (Z87.891) Active confirmed He has a plan to prevent relapse in times of stress and illness. Problem 285814922 Overweight (E66.3) Active confirmed His body mass index is 26.9. He has gained 1 pound. We discussed his weight loss strategy at length. We made a plan to lose weight at a rate of one half of a pound per week. Problem Prostate cancer (459618953) Prostate cancer (C61) Active confirmed He is up-to-date with urology visits. His PSA Was 5.63. A repeat was 4.7. This was forwarded to his urologist. He was notified of the significance of this. He remains asymptomatic. Problem 58690891 Other chronic pain (G89.29) Active confirmed Problem 922810085 Erectile dysfunction, unspecified erectile dysfunction type (N52.9) Active confirmed He is using tadalafil, but no longer takes testosterone since his diagnosis of carcinoma of the prostate. Problem 291928322 Coronary artery disease involving [place] coronary artery of [place] heart without angina pectoris (I25.10) Active confirmed He is free of angina palpitations or syncope. No change in his medications was needed. Problem 63760860 Hypogonadism in male (E29.1) Active confirmed He will continue the testosterone. Problem 868998267 History of atrial fibrillation (Z86.79) Active confirmed He was in a regular rhythm today with no murmurs. Problem Benign prostatic hypertrophy without outflow obstruction (018976113) Benign prostatic hyperplasia, unspecified whether lower urinary tract symptoms present (N40.0) Active confirmed He rises fro m sleep once a night. He is taking finasteride. We discussed lifestyle modification as an additional way to control nocturia. 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 In view of his history of prostate cancer, I referred him back to urology to discuss this matter Problem 28928339 Glaucoma of both eyes, unspecified glaucoma type (H40.9) Active confirmed He will continue with regular visits to the ophthalmologis t. Vital Signs Heart Rate 79 /min 08/27/2024 Temperature 97.5 degrees Fahrenheit 08/27/2024 Blood pressure diastolic 58 mm Hg 08/27/2024 Height 72 in 08/27/2024 Blood pressure systolic 133 mm Hg 08/27/2024 Weight 199 lbs 08/27/2024 BMI 26.99 kg/m2 08/27/2024 Encounters Encounter Location Date Provider Diagnosis Phan Orlando III, MD [address] [place] [address] [place] [phone] 11/15/2023 Phan Orlando Benign prostatic hyperplasia, unspecified whether lower urinary tract symptoms present N40.0 ; Overweight E66.3 ; History of atrial fibrillation Z86.79 ; Klinefelter syndrome Q98.4 ; Hypogonadism in male E29.1 ; Prostate cancer C61 and Former smoker Z87.891 Phan Orlando III, MD [address] [place] [address] [place] [phone] 08/05/2024 Phan Orlando Benign prostatic hyperplasia, unspecified whether lower urinary tract symptoms present N40.0 ; Prostate cancer C61 ; Klinefelter syndrome Q98.4 ; Hypogonadism in male E29.1 ; Overweight E66.3 ; Former smoker Z87.891 and Elevated PSA R97.20 Phan Orlando III, MD [address] [place] [address] [place] [phone] 08/27/2024 Phan Orlando Benign prostatic hyperplasia, unspecified whether lower urinary tract symptoms present N40.0 ; Prostate cancer C61 ; Klinefelter syndrome Q98.4 ; Hypogonadism in male E29.1 ; Overweight E66.3 ; Coronary artery disease involving [place] coronary artery of [place] heart without angina pectoris I25.10 ; Former smoker Z87.891 and History of atrial fibrillation Z86.79 Phan Orlando III, MD [address] [place] [address] [place] [phone] 09/24/2024 Phan Orlanod Benign prostatic hyperplasia, unspecified whether lower urinary tract symptoms present N40.0 Assessments Encounter Date Diagnosis (ICD Code) Assessment Notes Treatment Notes Treatment Clinical Notes 11/15/2023 Overweight (ICD-10 - E66.3) His body [...] significance of this. He remains asymptomatic. 08/05/2024 Benign prostatic hyperplasia, unspecified whether lower urinary tract symptoms present (ICD-10 - N40.0) He rises from sleep once a night. He is taking finasteride. We discussed lifestyle modification as an additional way to control nocturia. 08/27/2024 Prostate cancer (ICD-10 - C61) He is up-to-date with urology visits. His PSA Was 5.63. A repeat was 4.7. This was forwarded to his urologist. He was notified of the significance of this. He remains asymptomatic. 08/27/2024 Benign prostatic hyperplasia, unspecified whether lower urinary tract symptoms present (ICD-10 - N40.0) 09/24/2024 Benign prostatic hyperplasia, unspecified whether lower urinary tract symptoms present (ICD-10 - N40.0) 11/15/2023 History of atrial fibrillation (ICD-10 - Z86.79) He was in a regular rhythm today with no murmurs. 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 In view of his history of prostate cancer, I referred him back to urology to discuss this matter 08/27/2024 Klinefelter syndrome (ICD-10 - Q98.4) He requested a prescription for testosterone injections. In view of his history of prostate cancer, I referred him back to urology to discuss this matter 11/15/2023 Klinefelter syndrome (ICD-10 - Q98.4) He requested a prescription for testosterone injections. In view of his history of prostate cancer, I referred him back to urology to discuss this matter 08/05/2024 Hypogonadism in male (ICD-10 - E29.1) He will continue the testosterone. 08/27/2024 Hypogonadism in male (ICD-10 - E29.1) He will continue the testosterone. 11/15/2023 Hypogonadism in male (ICD-10 - E29.1) He will continue the testosterone. 08/05/2024 Overweight (ICD-10 - E66.3) His body mass index is 26.9. He has gained 1 pound. We discussed his weight loss strategy at length. We made a plan to lose weight at a rate of one half of a pound per week. 08/27/2024 Overweight (ICD-10 - E66.3) His body mass index is 26.9. He has gained 1 pound. We discussed his weight loss strategy at length. We made a plan to lose weight at a rate of one half of a pound per week. 11/15/2023 Prostate cancer (ICD-10 - C61) He is up-to-date with urology visits and his PSA is 3.9. 08/05/2024 Former smoker (ICD-10 - Z87.891) He has a plan to prevent relapse in times of stress and illness. 08/27/2024 Coronary artery disease involving [place] coronary artery of [place] heart without angina pectoris (ICD-10 - I25.10) He is free of angina palpitations or syncope. No change in his medications was needed. 11/15/2023 Former smoker (ICD-10 - Z87.891) He has a plan to prevent relapse in times of stress and illness. 08/05/2024 Elevated PSA (ICD-10 - R97.20) 08/27/2024 Former smoker (ICD-10 - Z87.891) He has a plan to prevent relapse in times of stress and illness. 08/27/2024 History of atrial fibrillation (ICD-10 - Z86.79) He was in a regular rhythm today with no murmurs. Plan Of Treatment Pending Test Test Name Order Date PROFILE, FASTING (COMPREHENSIVE METABOLI C) 11/15/2023 PROFILE, FASTING (COMPREHENSIVE METABOLI C) 08/01/2023 PROFILE, RANDOM (COMPREHENSIVE METABOLIC ) 08/27/2024 TSH (THYROID STIMULATING HORMONE) 2023 PSA, TOTAL 08/27/2024 PSA, TOTAL 11/15/2023 PSA, TOTAL+FREE 08/01/2023 CBC w DIFF 08/27/2024 CBC w DIFF 11/15/2023 CBC w DIFF 08/01/2023 Lipid Panel 11/15/2023 PSA Free and Total 08/05/2024 Next Appt Details Provider Name:Phan Orlando, 11/01/2024 10:15:00 AM, [address] [place] [address] [address], [place], [phone], Provider Name:Phan Orlando, 08/06/2025 02:00:00 PM, [address] [place] [address] [address], [place], [phone], Insurance Providers Payer Name Payer Address Payer Phone Subscriber Number Group Number Insured Name Patient Relationship to Insured Coverage Start Date Coverage End Date MEDICARE NGS [address] [place] [address] [id number] SZYMANSKIANTELMO Mendez Self - patient is the insured [employer] ([employer]) [address] [place] [address] [id number] ANTELMO SZYMANSKI Self - patient is the insured Medical (General) History Medical History History ICD Code Primary hypogonadism in male E29.1 Klinefelter syndrome Q98.4 benign prostatic hypertrophy overweight, BMI 29 glaucoma cholecystectomy appendectomy, degenerative joint disease . Both knees history of ablation procedure for atrial fibrillation. 2007 cataract extractions former smoker 2017 adenocarcinoma prostate, Dr. Haji, [facility] Coronary artery disease, cardiac cathete rization May 2021 Surgical History Surgery Date(Month/Year) Bilateral Carpaltunnel Surgery 04/2022 Cardiac catheterization with stents on B [facility] 05/2021 Stent placement right artery 05/2021 colonoscopy, Dr. Phan Daily, [facility] 2006 biopsy of prostate, positive for adenocarcinoma, Gale 3+4 = 7, Dr. Haji 06/2017 colonoscopy, positive tubula r adenoma, Dr. Phan Daily, [facility] 2011 left eye cataract extraction 2011 right eye catartact extraction 2011 cardiac catheterization ablation procedu re for atrial fibrillation 2006 bilateral meniscus arthroscopic surgery 1994, 1998 appendectomy cholecystectomy
[2024-10-22 13:07] LABS: MANUAL DIFF FLAG NO
[2024-10-22 13:22] LABS: Hematocrit 51.1 % (42.0-52.0); Hemoglobin 17.4 g/dl (14.0-18.0); Imm Gran Abs Auto 0.03 X10*3/uL (0.00-0.03); Imm Gran Pct Auto 0.5 % (0.0-0.4); Lymphocytes Absolute Auto 1.3 X10*3/uL (1.2-4.9); Mean Corpuscular HGB Conc 34.1 g/dl (31.0-36.0); Mean Corpuscular Hemoglobin 31.1 pg (27.0-33.0); Mean Corpuscular Volume 91.4 fL (80.0-98.0); NRBC Abs Auto 0.000 X10*3/uL (0.0-0.012); NRBC Pct Auto 0.0 /100WBC (0.0-0.2); Platelet Count 167 X10*3/uL (160-400); Red Blood Count 5.59 X10*6/uL (4.60-5.80); White Blood Count 5.8 X10*3/uL (4.8-10.8)
[2024-10-22 13:40] LABS: Alanine Aminotransferase 24 U/L (0-40); Albumin Level 4.4 g/dL (3.5-5.0); Alkaline Phosphatase 56 U/L (39-117); Anion Gap 11 (12-20); Aspartate Amino Transferase 27 U/L (5-37); Blood Urea Nitrogen 14 mg/dL (9-16); Calcium 9.2 mg/dL (8.4-10.2); Carbon Dioxide 26 mmol/L (22-29); Chloride 108 mmol/L (96-108); Estimated Glomerular Filt Rate > 60; Potassium 4.5 mmol/L (3.3-5.1); Sodium 140 mmol/L (135-145); Total Protein 6.6 g/dL (6.5-8.0)
[2024-10-22 14:26] LABS: PSA,Total (Free>4and<10) 5.70 ng/mL (0.00-4.00)
[2024-10-23 11:53] LABS: Free Prostate Spec Ag 1.4 ng/mL; Percent Free Prostate Spec Ag 29 % (calc) (>25)
== END 2024-10-22 09:50 | disposition home or self-care (01) ==
LOC: HO.HMGCLDS 09:49
PROVIDERS: Urology; PCP Internal Medicine Medical Oncology; Visit Provider Internal Medicine Medical Oncology
DX: N40.0 Benign prostatic hyperplasia without lower urinary tract symptoms (principal); C61 Malignant neoplasm of prostate; E66.3 Overweight; Z12.5 Encounter for screening for malignant neoplasm of prostate; Z86.79 Personal history of other diseases of the circulatory system
CPT/HCPCS: 36415; 80053; 84153; 84154; 85025

== ENCOUNTER 2024-11-29 09:05 | Outpatient (AMB) | payer MEDICARE, OTHER, SELFPAY ==
--- OUTSIDE RECORDS SUMMARY | 2023-11-15 10:00 | XMS_ITS ---
Author Organization Phan Orlando III, MD Address [address] [place] [address] [address] [place] [address] Care Team Providers Care Revenue Accounting Manager Name Role Phone Dr. Phan Orlando III Primary Care Provider Allergies Allergen (clinical drug ingredient) Drug/Non Drug Allergy documented on EMR Reaction Allergy Type Onset Date Status No Known Drug Allergy Unknown Drug Allergy Active REASON FOR VISIT Benign prostatic hypertrophy, Prostate cancer, Hypogonadism, Klinefelter syndrome, History of atrial fibrillation, Coronary artery disease Medications Medication SIG (Take, Route, Frequency, Duration) Notes Start Date End Date Status Wlgerif-Csjeixnhc-Vkxl 333-133-8.3 MG 1 tablet with a meal Orally Once a day Active Glucosamine Sulfate 1000 MG 1 capsule with a meal Orally Once a day Active Tadalafil 20 MG 1 tablet Orally Once a day 022 Active Finasteride 5 MG 1 tablet Orally Once a day Active Triamcinolone Acetonide 0.1 % 1 application Externally Twice a day 08/03/2022 Active Cosopt 22.3-6.8 MG/ML 1 drop into affect ed eye Ophthalmic Twice a day Active Aspirin 325 MG 1 tablet Orally Once a day Active Testosterone Enanthate 200 MG/ML 1 ml Intramuscular every 2 weeks 12/05/2017 Active Clopidogrel Bisulfate 75 MG 1 tablet Orally Once a day A ctive Atorvastatin Calcium 20 MG 1 tablet Orally Once a day Active Metoprolol Succinate ER 25 MG 1 tablet Orally Once a day A ctive Terbinafine HCl 1 % 1 application Insurance Representative ally twice a day 07/29/2021 Active Social History Tobacco Use: Social History Observation Description Date Details (start date - stop date) Former Smoker NA - NA Sex Assigned At : Social History Observation Description Sex Assigned At Male Tobacco Use/Smoking Question Answer Notes Patient is a former smoker How long has it been since you last smoked? > 10 years Additional Findings: Tobacco Non-User Ex-cigaret te smoker Vital Signs Temperature 98.1 degrees Fahrenheit 11/15/19 24 Blood pressure systolic 127 mm Hg 11/15/19 24 Blood pressure diastolic 58 mm Hg 024 Heart Rate 69 /min 11/15/2023 Height 72 in 11/15/2023 Weight 199 lbs 11/15/2023 BMI 26.99 kg/m2 11/15/2023 Encounters Encounter Location Date Provider Diagnosis Phan Orlando III, MD [address] [place] [address] [place] [address] 11/15/2023 Phan Orlando Benign prostatic hyperplasia, unspecified whether lower urinary tract symptoms present N40.0 ; Overweight E66.3 ; History of atrial fibrillation Z86.79 ; 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 He is taking finasteride. We discussed lifestyle modification as an additional way to control nocturia. 11/15/2023 Overweight (ICD-10 - E66.3) His body mass index is 26.9. He has gained 1 pound. We discussed his weight loss strategy at length. We made a plan to lose weight at a rate of one half of a pound per week. 11/15/2023 History of atrial fibrillation (ICD-10 - Z86.79) He was in a regular rhythm today with no murmurs. 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 In view of his history of prostate cancer, I referred him back to urology to discuss this matter 11/15/2023 Hypogonadism in male (ICD-10 - E29.1) He will continue the testosterone. 11/15/2023 Prostate cancer (ICD-10 - C61) He is up-to-date with urology visits and his PSA is 3.9. 11/15/2023 Former smoker (ICD-10 - Z87.891) He has a plan to prevent relapse in times of stress and illness. Plan Of Treatment Medication Medication Name Sig Start Date Stop Date Notes Oltihfg-Aagbjqqus-Vfld 333-133-8.3 MG 1 tablet with a meal Orally Once a day Glucosamine Sulfate 1000 MG 1 capsule wi th a meal Orally Once a day Tadalafil 20 MG 1 tablet Orally Once a day 11/12/2021 Finasteride 5 MG 1 tablet Orally Once a day Triamcinolone Acetonide 0.1 % 1 applicat ion Externally Twice a day 08/03/2022 Cosopt 22.3-6.8 MG/ML 1 drop into affect ed eye Ophthalmic Twice a day Aspirin 325 MG 1 tablet Orally Once a day Testosterone Enanthate 200 MG/ML 1 ml Intramuscular every 2 weeks 12/05/2017 Clopidogrel Bisulfate 75 MG 1 tablet Orally Once a day Atorvastatin Calcium 20 MG 1 tablet Orally Once a day Metoprolol Succinate ER 25 MG 1 tablet Orally Once a day Terbinafine HCl 1 % 1 application Insurance Representative ally twice a day 07/29/2021 Pending Test Test Name Order Date PROFILE, FASTING (COMPREHENSIVE METABOLI C) 11/15/2023 PSA, TOTAL 11/15/2023 CBC w DIFF 11/15/2023 Lipid Panel 11/15/2023 Next Appt Details Follow Up: 6 Months, Reason: ov Provider Name:Phan Orlando , 08/06/2025 02:00:00 PM, [address] [place] [address] DR, [place] [address], [place], [address], Progress Notes * ANTELMO SZYMANSKI MDOB:1945 (78 yo M)Acc No.[id number]:11/15/2023 Progress Notes Patient: ANTELMO VAUGHAN Provider: Tamar Orlando MD :1945 A ge:78 Y S ex:Male Date:11/15/2023 [address] [facility] Subjective: * Chief Complaints: * B enign prostatic hypertrophyProstate cancerHypogonadismKlinefelter syndromeHistory of atrial fibrillationCoronary artery disease * HPI: C OVID-19 Screening: He returns to the office for medical management. He is going to go to [place] for the winter on November 30, 2023 2 returned late in June of next year. He has been to the urologist who began him on finasteride. He says he is feeling healthy and well and denies chest pain shortness of breath or bleeding. He experiences nocturia once a night. He has had no angina. He was in a regular heart rhythm today. He has no new complaints. His PSA is 3.9. Questions H ave you experienced fever, chills, cough, sore throat, shortness of breath, difficulty breathing, muscle aches, loss of taste or smell? N o H ave you been exposed to the virus within the last 10 days? N o H ave you travelled internationally in the last 10 days? N o H ave you been exposed to COVID-19 in the past? Y es * ROS: G eneral/Constitutional: pain o nly normal aches and pains. C hills d enies.?Fatigue a dmits. F ever d enies. E NT: Decreased hearing d enies. R espiratory: Cough d enies. C ardiovascular: Chest pain with exertion d enies. D yspnea on exertion?denies. S hortness of breath d enies. G astrointestinal: Constipation o ccasional. D ecreased appetite d enies. D iarrhea d enies. H eartburn d enies. N ausea d enies. R ectal bleeding d enies. V omiting d enies. H ematology: bruising d enies. p etechiae d enies. S wollen glands n one have been noted. G enitourinary: Frequent urination t wice a night. M usculoskeletal: Muscle aches d enies. P ainful joints d enies. S ciatica d enies. W eakness d enies. S kin: Itching d enies. R paula d enies. S kin lesion(s)?denies. N eurologic: Difficulty speaking d enies. D izziness d enies.?Headache d enies. L ow back pain d enies. P sychiatric: Depressed mood d enies. * Medical History: * Surgical History: c holecystectomy appendectomy bilateral meniscus arthroscopic surgery 1994, 1998cardiac catheterization ablation procedure for atrial fibrillation 2007right eye catartact extraction 2012left eye cataract extraction 2011colonoscopy, positive tubular adenoma, Dr. Phan Daily, [facility] 2012biopsy of prostate, positive for adenocarcinoma, [place] 3+4 = 7, Dr. Haji 06/2017colonoscopy, Dr. Phan Daily, [facility] 2007Stent placement right artery ardiac catheterization with [facility]/2022 * Hospitalization/Major Diagno stic Procedure: D enies Past Hospitalization * Family History: F ather: 72 yrs, Coronary artery disease, diagnosed with CVD. M other: 90 yrs, Colon cancer, diagnosed with Cancer. S iblings: unknown. M aternal Grand Mother: alive, diagnosed with HTN. 2 brother(s) - healthy. 2 daughter(s) - healthy. . His father of coronary artery disease and his mother of colon cancer. He has a brother with renal failure. A maternal grandmother had adult onset diabetes. He is not aware of any family history of mental illness or substance abuse or addiction. * Social History: T obacco Use: T obacco Use/Smoking P sam is a f ormer smoker H ow long has it been since you last smoked??> 10 years A dditional Findings: Tobacco Non-User E x-cigarette smoker P atmilka stopped smoking 17 years ago and drinks 2 beers daily. * Medications: T akingTerbinafine HCl 1 % Cream 1 application Externally twice a dayMetoprolol Succinate ER 25 MG Tablet Extended Release 24 Hour 1 tablet Orally Once a dayAtorvastatin Calcium 20 MG Tablet 1 tablet Orally Once a dayClopidogrel Bisulfate 75 MG Tablet 1 tablet Orally Once a dayTestosterone Enanthate 200 MG/ML Solution 1 ml Intramuscular every 2 weeksAspirin 325 MG Tablet 1 tablet Orally Once a dayCosopt 22.3-6.8 MG/ML Solution 1 drop into affected eye Ophthalmic Twice a dayGlucosamine Sulfate 1000 MG Capsule 1 capsule with a meal Orally Once a jtzIyuisaz-Jbogjmnfj-Iulo 333-133-8.3 MG Tablet 1 tablet with a meal Orally Once a dayFinasteride 5 MG Tablet 1 tablet Orally Once a dayTadalafil 20 MG Tablet 1 tablet Orally Once a day, stop date 07/26/2024Triamcinolone Acetonide 0.1 % Cream 1 application Externally Twice a dayMedication List reviewed and reconciled with the patientTaking Terbinafine HCl 1 % Cream 1 application Externally twice a dayTaking Metoprolol Succinate ER 25 MG Tablet Extended Release 24 Hour 1 tablet Orally Once a dayTaking Atorvastatin Calcium 20 MG Tablet 1 tablet Orally Once a dayTaking Clopidogrel Bisulfate 75 MG Tablet 1 tablet Orally Once a dayTaking Testosterone Enanthate 200 MG/ML Solution 1 ml Intramuscular every 2 weeksTaking Aspirin 325 MG Tablet 1 tablet Orally Once a dayTaking Cosopt 22.3-6.8 MG/ML Solution 1 drop into affected eye Ophthalmic Twice a dayTaking Glucosamine Sulfate 1000 MG Capsule 1 capsule with a meal Orally Once a dayTaking Dzmazkn-Rbwgvhjxa-Nhyr 333-133-8.3 MG Tablet 1 tablet with a meal Orally Once a dayTaking Finasteride 5 MG Tablet 1 tablet Orally Once a dayTaking Tadalafil 20 MG Tablet 1 tablet Orally Once a day, stop date 07/26/2024Taking Triamcinolone Acetonide 0.1 % Cream 1 application Externally Twice a dayMedication List reviewed and reconciled with the patient * Allergies: N o Known Drug Allergyno[Allergies Verified] Objective: * Vitals: H t: 72, Wt:199, BMI:26.99, BP:127/58, HR:69, Temp:98.1, Wt-k.26. * P ast Orders: Lab:PSA Free and Total * Order Date 11/06/2023 07/26/2023 Prostate Specific Ag Total 3.9 (Ref Range: < OR = 4.0 ng/mL) 4.2 A (Ref Range: < OR = 4.0 ng/mL) Percent Free Prostate Spec Ag 26 (Ref Range: >25 % (calc)) 19 A (Ref Range: >25 % (calc)) Free Prostate Spec Ag 1.0 (Ref Range: ng/mL) 0.8 (Ref Range: ng/mL) ???Lab:Thyroid Stimulating Hormone (Order Date - 11/06/2023) (Collection Date - 11/06/2023)?ValueReference Range?Thyroid Stimulating Hormone4.07H 0.32-4.0 - uIU/mL * Lab:Complete Blood Count Aut o Diff * Order Date 11/06/2023 07/26/2023 08/10/2021 White Blood Count 5.5 (Ref Range: 4.8-10.8 X10*3/uL) 5.1 (Ref Range: 4.8-10.8 X10*3/uL) 5.7 (Ref Range: 4.8-10.8 X10*3/uL) Red Blood Count 5.64 (Ref Range: 4.60-5.80 X10*6/uL) 5.38 (Ref Range: 4.60-5.80 X10*6/uL) 5.33 (Ref Range: 4.60-5.80 X10*6/uL) Hemoglobin 16.9 (Ref Range: 14.0-18.0 g/dl) 16.5 (Ref Range: 14.0-18.0 g/dl) 16.2 (Ref Range: 14.0-18.0 g/dl) Hematocrit 51.0 (Ref Range: 42.0-52.0 %) 49.0 (Ref Range: 42.0-52.0 %) 48.9 (Ref Range: 42.0-52.0 %) Mean Corpuscular Volume 90.4 (Ref Range: 80.0-98.0 fL) 91.1 (Ref Range: 80.0-98.0 fL) 91.7 (Ref Range: 80.0-98.0 fL) Mean Corpuscular Hemoglobin 30.0 (Ref Range: 27.0-33.0 pg) 30.7 (Ref Range: 27.0-33.0 pg) 30.4 (Ref Range: 27.0-33.0 pg) Mean Corpuscular HGB Conc 33.1 (Ref Range: 31.0-36.0 g/dl) 33.7 (Ref Range: 31.0-36.0 g/dl) 33.1 (Ref Range: 31.0-36.0 g/dl) Red Cell Distribution Width 13.6 (Ref Range: 11.0-16.0 %) 13.4 (Ref Range: 11.0-16.0 %) 13.2 (Ref Range: 11.0-16.0 %) Platelet Count 179 (Ref Range: 160-400 X10*3/uL) 184 (Ref Range: 160-400 X10*3/uL) 201 (Ref Range: 160-400 X10*3/uL) Mean Platelet Volume 12.5 H (Ref Range: 9.4-12.4 fL) 12.4 (Ref Range: 9.4-12.4 fL) 12.0 (Ref Range: 9.4-12.4 fL) Neutrophils Percent Auto 68.1 (Ref Range: 45-73 %) 67.9 (Ref Range: 45-73 %) 62.6 (Ref Range: 45-73 %) Imm Gran Pct Auto 0.2 (Ref Range: 0.0-0.4 %) 0.2 (Ref Range: 0.0-0.4 %) 0.3 (Ref Range: 0.0-0.4 %) Lymphocytes Percent Auto 20.2 (Ref Range: 20-40 %) 19.4 L (Ref Range: 20-40 %) 25.1 (Ref Range: 20-40 %) Monocytes Percent Auto 8.1 (Ref Range: 2-11 %) 8.4 (Ref Range: 2-11 %) 8.9 (Ref Range: 2-11 %) Eosinophils Percent Auto 2.3 (Ref Range: 0-4 %) 2.9 (Ref Range: 0-4 %) 2.4 (Ref Range: 0-4 %) Basophils Percent Auto 1.1 (Ref Range: 0-2 %) 1.2 (Ref Range: 0-2 %) 0.7 (Ref Range: 0-2 %) NRBC Pct Auto 0.0 (Ref Range: 0.0-0.2 /100WBC) 0.0 (Ref Range: 0.0-0.2 /100WBC) 0.0 (Ref Range: 0.0-0.2 /100WBC) Neutrophils Absolute Auto 3.8 (Ref Range: 2.0-8.3 x10*3/uL) 3.5 (Ref Range: 2.0-8.3 x10*3/uL) 3.6 (Ref Range: 2.0-8.3 x10*3/uL) Imm Gran Abs Auto 0.01 (Ref Range: 0.00-0.03 X10*3/uL) 0.01 (Ref Range: 0.00-0.03 X10*3/uL) 0.02 (Ref Range: 0.00-0.03 X10*3/uL) Lymphocytes Absolute Auto 1.1 L (Ref Range: 1.2-4.9 X10*3/uL) 1.0 L (Ref Range: 1.2-4.9 X10*3/uL) 1.4 (Ref Range: 1.2-4.9 X10*3/uL) Monocytes Absolute Auto 0.5 (Ref Range: 0.1-1.2 X10*3/uL) 0.4 (Ref Range: 0.1-1.2 X10*3/uL) 0.5 (Ref Range: 0.1-1.2 X10*3/uL) Eosinophils Absolute Auto 0.1 (Ref Range: 0.0-0.4 X10*3/uL) 0.2 (Ref Range: 0.0-0.4 X10*3/uL) 0.1 (Ref Range: 0.0-0.4 X10*3/uL) Basophils Absolute Auto 0.1 (Ref Range: 0.0-0.2 X10*3/uL) 0.1 (Ref Range: 0.0-0.2 X10*3/uL) 0.0 (Ref Range: 0.0-0.2 X10*3/uL) NRBC Abs Auto 0.000 (Ref Range: 0.0-0.012 X10*3/uL) 0.000 (Ref Range: 0.0-0.012 X10*3/uL) 0.000 (Ref Range: 0.0-0.012 X10*3/uL) * Lab:Marisol peoples Fast * Order Date 11/06/2023 07/26/2023 08/10/2021 Sodium 141 (Ref Range: 135-145 mmol/L) 139 (Ref Range: 135-145 mmol/L) 140 (Ref Range: 135-145 mmol/L) Bilirubin Total 1.5 H (Ref Range: 0.0-1.0 mg/dL) 1.7 H (Ref Range: 0.0-1.0 mg/dL) 1.3 H (Ref Range: 0.0-1.0 mg/dL) Aspartate Amino Transferase 21 (Ref Range: 5-37 U/L) 24 (Ref Range: 5-37 U/L) 20 (Ref Range: 5-37 U/L) Alanine Aminotransferase 23 (Ref Range: 0-40 U/L) 26 (Ref Range: 0-40 U/L) 25 (Ref Range: 0-40 U/L) Total Protein 6.6 (Ref Range: 6.5-8.0 g/dL) 6.9 (Ref Range: 6.5-8.0 g/dL) 6.6 (Ref Range: 6.5-8.0 g/dL) Albumin Level 4.1 (Ref Range: 3.5-5.0 g/dL) 4.3 (Ref Range: 3.5-5.0 g/dL) 4.2 (Ref Range: 3.5-5.0 g/dL) Alkaline Phosphatase 50 (Ref Range: 39-117 U/L) 51 (Ref Range: 39-117 U/L) 57 (Ref Range: 39-117 U/L) Potassium 4.9 (Ref Range: 3.3-5.1 mmol/L) 4.4 (Ref Range: 3.3-5.1 mmol/L) 5.1 (Ref Range: 3.3-5.1 mmol/L) Chloride 106 (Ref Range: 96-108 mmol/L) 105 (Ref Range: 96-108 mmol/L) 105 (Ref Range: 96-108 mmol/L) Carbon Dioxide 27 (Ref Range: 22-29 mmol/L) 27 (Ref Range: 22-29 mmol/L) 28 (Ref Range: 22-29 mmol/L) Anion Gap 13 (Ref Range: 12-20) 11 L (Ref Range: 12-20) 12 (Ref Range: 12-20) Blood Urea Nitrogen 12 (Ref Range: 9-16 mg/dL) 14 (Ref Range: 9-16 mg/dL) 12 (Ref Range: 9-16 mg/dL) Creatinine 0.88 (Ref Range: 0.5-1.4 mg/dL) 0.88 (Ref Range: 0.5-1.4 mg/dL) 1.10 (Ref Range: 0.5-1.4 mg/dL) Estimated Glomerular Filt Rate > 60 > 60 > 60 Glucose Fasting 108 H (Ref Range: 60-99 mg/dL) 91 (Ref Range: 60-99 mg/dL) 117 H (Ref Range: 60-99 mg/dL) Calcium 9.8 (Ref Range: 8.4-10.2 mg/dL) 9.7 (Ref Range: 8.4-10.2 mg/dL) 9.4 (Ref Range: 8.4-10.2 mg/dL) ???Lab:DANNY (Order Date - 09/14/2023) (Collection Date - 08/23/2023) ?ValueReference Range?ResultPositive * Examination: G eneral Examination: GENERAL APPEARANCE: p leasant, well nourished, well developed, in no acute distress, calm and relaxed , overweight , man. HEAD: a traumatic, normocephalic. EYES: e kaylynn, perrla, anicteric, conjugate. EARS: n ormal. NOSE: s eptum intact. ORAL CAVITY: n ormal, unremarkable. NECK/THYROID: n o jugular venous distention, no carotid bruit, thyroid normal. LYMPH NODES: n o enlarged lymph nodes,spleen normal. SKIN: n o suspicious lesions, anicteric. HEART: n o clicks, gallops, murmurs, or rubs, regular rhythm, S1, S2 normal, no s3, or vascular bruits. LUNGS: c lear to auscultation . BREASTS: no masses palpable bilaterally. ABDOMEN: b owel sounds normal, no ascites, no organomegaly, no mass , overweight. RECTAL EXAM: n ot examined. MUSCULOSKELETAL: e xtremities unremarkable, no clubbing, cyanosis or edema. PERIPHERAL PULSES: n ormal. NEUROLOGIC: a lert and oriented, cranial nerves 2-12 grossly intact, deep tendon reflexes 2+ symmetrical, motor strength normal upper and lower extremities, sensory exam intact. PSYCH: a lert, oriented. Assessment: * Assessment: 1. O verweight - E66.3, His body mass index is 26.9. He has gained 1 pound. We discussed his weight loss strategy at length. We made a plan to lose weight at a rate of one half of a pound per week. 2 . B enign prostatic hyperplasia, unspecified whether lower urinary tract symptoms present - N40.0, He rises from sleep once a night. He is taking finasteride. We discussed lifestyle modification as an additional way to control nocturia. 3 . H istory of atrial fibrillation - Z86.79, He was in a regular rhythm today with no murmurs. 4 . 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 In view of his history of prostate cancer, I referred him back to urology to discuss this matter 5 . H ypogonadism in male - E29.1, He will continue the testosterone. 6 . P rostate cancer - C61, He is up-to-date with urology visits and his PSA is 3.9. 7 . F ormer smoker - Z87.891, He has a plan to prevent relapse in times of stress and illness. Plan: * Treatment: 2. B enign prostatic hyperplasia, unspecified whether lower urinary tract symptoms present Continue Testosterone Enanthate Solution, 200 MG/ML, 1 ml, Intramuscular, every 2 weeks; C ontinue Aspirin Tablet, 325 MG, 1 tablet, Orally, Once a day; C ontinue Cosopt Solution, 22.3-6.8 MG/ML, 1 drop into affected eye, Ophthalmic, Twice a day; C ontinue Glucosamine Sulfate Capsule, 1000 MG, 1 capsule with a meal, Orally, Once a day; C ontinue Mqkdapd-Lbdfwnifx-Uand Tablet, 333-133-8.3 MG, 1 tablet with a meal, Orally, Once a day; C ontinue Finasteride Tablet, 5 MG, 1 tablet, Orally, Once a day; C ontinue Tadalafil Tablet, 20 MG, 1 tablet, Orally, Once a day; C ontinue Triamcinolone Acetonide Cream, 0.1 %, 1 application, Externally, Twice a day. L AB: PROFILE, FASTING (COMPREHENSIVE METABOLIC) L AB: PSA, TOTAL L AB: CBC w DIFF L AB: Lipid Panel 3. H istory of atrial fibrillation L AB: PROFILE, FASTING (COMPREHENSIVE METABOLIC) L AB: PSA, TOTAL L AB: CBC w DIFF L AB: Lipid Panel 4. O thers Continue Terbinafine HCl Cream, 1 %, 1 application, Externally, twice a day; C ontinue Metoprolol Succinate ER Tablet Extended Release 24 Hour, 25 MG, 1 tablet, Orally, Once a day; C ontinue Atorvastatin Calcium Tablet, 20 MG, 1 tablet, Orally, Once a day; C ontinue Clopidogrel Bisulfate Tablet, 75 MG, 1 tablet, Orally, Once a day. * Procedure Codes: * Preventive Medicine: Counseling: C are goal follow-up plan: Counseling for abnormal BMI given Y es Above Normal BMI Follow-up D ietary management education, guidance, and counseling S moking/Tobacco Use Patient counseled on the dangers of tobacco use and urged to quit. 0 11/15/2023 * Follow Up: 6 Months (Reason: ov) * Images: * Sign off status: Completed true * Provider: Tamar Orlando MD Date: 0 11/15/2023 Generated for Nacho goyal/Esteban/eTransmitting on: 1 09:31 AM EDT History and Physical Notes * HPI (History of Present Illness) Category Sub-Category Detail Notes COVID-19 Screening Questions Have you had any new onset fever, chills, cough, congestion, sore throat, shortness of breath, muscle aches?: No Have you been exposed to the virus withi n the last 10 days?: No Have you travelled internationally in [facility] last 10 days?: No Have you been exposed to COVID-19 in the past?: Yes Examination Category Sub-Category Detail Notes General Examination GENERAL APPEARANCE: pleasant , well nourished, well developed, in no acute distress, calm and relaxed , overweight , man HEAD: atraumatic, normocep halic EYES: eomi, perrla, anicte link, conjugate EARS: normal NOSE: septum intact NECK/THYROID: no jugular venous di stention, no carotid bruit, thyroid normal HEART: no clicks, gallops, murmurs, or rubs, regular rhythm, S1, S2 normal, no s3, or vascular bruits LUNGS: clear to auscultatio n ABDOMEN: bowel sounds normal, no ascites, no organomegaly, no mass , overweight NEUROLOGIC: alert and oriented, cranial nerves 2-12 grossly intact, deep tendon reflexes 2+ symmetrical, motor strength normal upper and lower extremities, sensory exam intact SKIN: no suspicious lesion s, anicteric PERIPHERAL PULSES: normal BREASTS: no masses palpable b ilaterally MUSCULOSKELETAL: extremities unremark able, no clubbing, cyanosis or edema LYMPH NODES: no enlarged lymph no mya,spleen normal RECTAL EXAM: not examined PSYCH: alert, oriented ORAL CAVITY: normal, unremarkable
--- OUTSIDE RECORDS SUMMARY | 2023-11-23 09:00 | XMS_ITS ---
Author Organization [facility] Address [address] [place] [address] Care Team Providers Care Associate Professor Of Archaeology Name Role Phone Phan Orlando MD Primary Care Provider Unavailab Phan Alvarez Unavailable [phone] REASON FOR VISIT positive colon ca screening using cologuard Problems Problem Type SNOMED Code ICD Code Onset Dates Problem Status W/U Status Risk Notes Problem Diverticular disease of colon (598455551) Diverticulosis of large intestine without perforation or abscess without bleeding (K57.30) Active confirmed Encounters Encounter Location Date Provider Diagnosis [facility] [place] [address] [place] [phone] 11/23/2023 Phan Daily Colon cancer scree glo Z12.11 ; Colon polyps K63.5 ; Heme positive stool R19.5 ; Diverticulosis of large intestine without perforation or abscess without bleeding K57.30 and Other hemorrhoids K64.8 Assessments Encounter Date Diagnosis (ICD Code) Assessment Notes Treatment Notes Treatment Clinical Notes Section Notes 11/23/2023 Colon cancer screening (ICD-10 - Z12.11) 11/23/2023 Colon polyps (ICD-10 - K63.5) 11/23/2023 Heme positive stool (ICD-10 - R19.5) 11/23/2023 Diverticulosis of large intestine without perforation or abscess without bleeding (ICD-10 - K57.30) 11/23/2023 Other hemorrhoids (ICD-10 - K64.8) Plan Of Treatment No Information Progress Notes * ANTELMO BLANC MDOB:1945 (79 yo M)Acc No.[id number]:11/23/2023 COLON WITH MAC Patient: ANTELMO VAUGHAN Provider: Tamar Daily MD :1945 A ge:78 Y S ex:Male Date:11/23/2023 Address:[address] [place], [place] [id number] Pcp:Phan Orlando MD Subjective: * Chief Complaints: * 1 . Positive colon ca screening using cologuard. * Medical History: Objective: * Vitals: Assessment: * Assessment: 1. C olon cancer screening - Z12.11 (Primary) 2 . C olon polyps - K63.5? 3. H chanda positive stool - R19.5 4 . D iverticulosis of large intestine without perforation or abscess without bleeding - K57.30 5 . O ther hemorrhoids - K64.8 Plan: * Treatment: * Procedure Codes: 4 5385 LESION REMOVAL COLONOSCOPY, Modifiers: PT , 0529F INTRVL 3+YRS PTS CLNSCP DOCD, 0528F RCMND FLW-UP 10 YRS DOCD, Modifiers: 1P * * The named appointment provid er may or may not be the originator of this progress note, and it is not deemed complete until electronically signed by the appointment provider. Sign off status: Pending * Provider: Tamar Daily MD Date: 0 11/23/2023 Generated for Nacho goyal/Esteban/Dominicitting on: 1 09:30 AM EDT
--- OUTSIDE RECORDS SUMMARY | 2024-08-05 10:00 | XMS_ITS ---
Author Organization Phan Orlando III, MD Address [address] [place] [address] [place] [address] Care Team Providers Care Salicylic Acid Blender Name Role Phone Dr. Phan Orlando III [...] Duration) Notes Start Date End Date Status Zbiflnz-Dpoamzjce-Eomm 333-133-8.3 MG 1 tablet with a meal [...] ctive Terbinafine HCl 1 % 1 application Treadle Cut Off Saw Operator ally twice a day 07/29/2021 Active Testosterone [...] Date Provider Diagnosis Phan Orlando III, MD [address] [place] [address] [address], [place] [address] 08/05/2024 Phan Orlando Benign prostatic hyperplasia, unspecified [...] Name Sig Start Date Stop Date Notes Twawzrw-Mqdbxgrqw-Plkj 333-133-8.3 MG 1 tablet with a meal [...] day Terbinafine HCl 1 % 1 application Treadle Cut Off Saw Operator ally twice a day 07/29/2021 Testosterone Enanthate [...] weeks, Reason: ov review labs Provider Name:Phan Orlando , 08/06/2025 02:00:[address], [address], [place], [address], Progress Notes * ANTELMO SZYMANSKI MDOB:1945 (79 yo M)Acc No.[id number]:08/05/2024 Progress Notes Patient: ANTELMO VAUGHAN Provider: Tamar Orlando MD :1945 A ge:79 Y S ex:Male Date:08/05/2024 Address:[address] [place], [place] [id number] Subjective: * Chief Complaints: * A nnual [...] 2012colonoscopy, positive tubular adenoma, Dr. Phan Daily, [facility] 2012biopsy of prostate, positive for adenocarcinoma, Gale 3+4 = 7, Dr. Haji 06/2017colonoscopy, Dr. Phan Daily, [facility] 2007Stent placement right artery 04/2022Cardiac catheterization with stents on [facility] ilateral [facility] 04/2022 * Hospitalization/Major Diagno stic Procedure: D penny Past Hospitalization * Family History: F ather: 72 yrs, Coronary artery disease, diagnosed with CVD. M other: 90 yrs, Colon cancer, diagnosed with Cancer. S iblings: unknown. M bryson Grand Mother: alive, diagnosed with HTN. 2 [...] with a meal Orally Once a day Bqnzuaf-Wapktutca-Rhxb 333-133-8.3 MG Tablet 1 tablet with a [...] a meal Orally Once a day Taking Bombkom-Oeaeqhnmk-Ukkl 333-133-8.3 MG Tablet 1 tablet with a [...] 0.000 (Ref Range: 0.0-0.012 X10*3/uL) * Lab:Marisol ZamarripaRose Borden l Fast * Collection Date 07/30/2024 11/06/2023 [...] 0 08/05/2024 Generated for Jovitai jyotsna/Esteban/eTransmitting on: 1 09:31 AM EDT History and [...]
--- OUTSIDE RECORDS SUMMARY | 2024-08-27 10:30 | XMS_ITS ---
Author Organization Phan Orlando III, MD Address [address] [place] [address] [address] [place] [address] Care Team Providers Care Transporter Radiology Name Role Phone Dr. 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 08/27/2024 Coronary artery disease involving [place] coronary artery of [place] heart without angina pectoris (ICD-10 - I25.10) [...] MG 1 tablet Orally Once a day Rdwfptc-Lpfqkszcb-Efsu 333-133-8.3 MG 1 tablet with a meal [...] day Terbinafine HCl 1 % 1 application Library Acquisitions Technician ally twice a day 07/29/2021 Testosterone Enanthate 200 MG/ML 1 ml Intramuscular every 2 weeks 12/05/2017 Tadalafil 20 MG 1 tablet Orally Once a day Pending Test Test Name Order Date PROFILE, RANDOM (COMPREHENSIVE METABOLIC ) 08/27/2024 PSA, TOTAL 08/27/2024 CBC w DIFF 08/27/2024 Next Appt Details Follow Up: 2 Months, Reason: OV Provider Name:Phan Orlando , 08/06/2025 02:00:00 PM, [address] [place] [address] , [facility] [address], [place], [address], Progress Notes * ANTELMO SZYMANSKI MDOB:1945 (79 yo M)Acc No.[id number]:08/27/2024 Progress Notes Patient: Lissette YUNIEL ANTELMO Arzola Provider: Tamar Orlando MD :1945 A ge:79 Y S ex:Male Date:08/27/2024 Address:[address] [place] [address] , [id number] Subjective: * Chief Complaints: * P rostate [...] for atrial fibrillation 2007right eye catartact extraction 2011left eye cataract extraction 2011colonoscopy, positive tubular adenoma, Dr. Phan Daily, [facility] 2012biopsy of prostate, positive for adenocarcinoma, Gale 3+4 = 7, Dr. Haji 06/2017colonoscopy, Dr. Phan Daily, [facility] 2007Stent placement right artery ardiac catheterization with stents on [facility] ilateral Carpaltunnel Surgery 04/2022 * Hospitalization/Major Diagno [...] with a meal Orally Once a day Wcppkin-Ehqgaeyhd-Qeyw 333-133-8.3 MG Tablet 1 tablet with a [...] a meal Orally Once a day Taking Wyblxqp-Rslmnvbvq-Fjjp 333-133-8.3 MG Tablet 1 tablet with a [...] 6 . C oronary artery disease involving [place] coronary artery of [place] heart without angina pectoris - I25.10 N [...] * Provider: Tamar Orlando MD Date: 0 08/27/2024 Generated for Nacho goayl/Esteban/eTransmitting on: 1 09:30 AM EDT History and Physical Notes * [...]
--- OUTSIDE RECORDS SUMMARY | 2024-09-24 07:02 | XMS_ITS ---
Author Organization Phan Orlando III, MD Address [address] [place] [address] [place] [address] Care Team Providers Care Industrial Accountant Name Role Phone Dr. Phan Orlando III Primary Care Provider REASON FOR VISIT refill for Tadalafil Medications Medication SIG (Take, Route, Fr equency, Duration) Notes Start Date End Date Status Tadalafil 20 MG 1 tablet for ED Oral ly Once a day for 30 days Active Social History Sex Assigned At : Social History Observation Description Sex Assigned At Male Encounters Encounter Location Date Provider Diagnosis Phan Orlando III, MD [address] [place] [address] [place] [address] 09/24/2024 Phan Orlando Benign prostatic hyperplasia, unspecified whether lower urinary tract symptoms present N40.0 Assessments Encounter Date Diagnosis (ICD Code) Assessment Notes Treat ment Notes Treatment Clinical Notes 09/24/2024 Benign prostatic hyperplasia, unspecified whether lower urinary tract symptoms present (ICD-10 - N40.0) Plan Of Treatment Medication Medication Name Sig Start Date Stop Date Notes Tadalafil 20 MG 1 tablet for ED Oral ly Once a day for 30 days Next Appt Details Provider Name:Phan Orlando , 08/06/2025 02:00:00 PM, [address] [place] [address] [place], [address], Progress Notes * ANTELMO SZYMANSKI MDOB:1945 (79 yo M)Acc No.[id number]:09/24/2024 Patient: ANTELMO VAUGHAN :1945 A ge:79 Y S ex:Male Address:[address] [place] [address], [address] * Refills Refill Tadalafil Tablet, 20 MG, Orally, 30 Tablet, 1 tablet for ED, Once a day, 30 days, Refills=11 * true * Date: Generated for Nacho goyal/Esteban/Dominicitting on: 09:30 AM EDT
--- OUTSIDE RECORDS SUMMARY | 2024-11-01 06:15 | XMS_ITS ---
Author Organization Phan Orlando III, MD Address [address] [place] [address] [address] [place] [address] Care Team Providers Care Proof Plate Maker Name Role Phone Dr. Phan Orlando III Primary Care Provider Allergies Allergen (clinical drug ingredient) Drug/Non Drug Allergy documented on EMR Reaction Allergy Type Onset Date Status No Known Drug Allergy Unknown Drug Allergy Active No Known Food Allergy Unknown Drug Allergy Active REASON FOR VISIT Klinefelter syndrome, Benign prostatic hypertrophy, Prostate cancer, Hypogonadism, History of atrial fibrillation, Coronary artery disease Medications Medication SIG (Take, Route, Frequency, Duration) Notes Start Date End Date Status Metoprolol Succinate ER 25 MG 1 tablet Orally Once a day A ctive Atorvastatin Calcium 20 MG 1 tablet Orally Once a day Active Clopidogrel Bisulfate 75 MG 1 tablet Orally Once a day A ctive Testosterone Enanthate 200 MG/ML 1 ml Intramuscular every 2 weeks 12/05/2017 Active Aspirin 325 MG 1 tablet Orally Once a day Active Ouvcyjy-Kafhdibzq-Drud 333-133-8.3 MG 1 tablet with a meal Orally Once a day Active Triamcinolone Acetonide 0.1 % APPLY 1 APPLICATION EXTERNALLY TWICE A DAY Active Finasteride 5 MG 1 tablet Orally Once a day Active Tadalafil 20 MG 1 tablet for ED Oral ly Once a day Active Terbinafine HCl 1 % 1 application Absorber Operator ally twice a day 07/29/2021 Active Cosopt 22.3-6.8 MG/ML 1 drop into affect ed eye Ophthalmic Twice a day Active Glucosamine Sulfate 1000 MG 1 capsule with a meal Orally Once a day Active Social History [...] non-user Ex-cigaret te smoker Vital Signs Temperature 97.4 degrees Fahrenheit 11/02/19 25 Blood pressure systolic 135 mm Hg 11/02/19 25 Blood pressure diastolic 72 mm Hg 025 Heart Rate 66 /min 11/01/2024 Height 72 in 11/01/2024 Weight 200 lbs 11/01/2024 BMI 27.12 kg/m2 11/01/2024 Encounters Encounter Location Date Provider Diagnosis Phan Orlando III, MD [address] [place] [address] [place] [address] 11/01/2024 Phan Orlando Prostate cancer C61 ; Former smoker Z87.891 ; Overweight E66.3 ; 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 He will see urology soon. He is being treated with active surveillance. 11/01/2024 Former smoker (ICD-10 - Z87.891) He has a plan to prevent relapse in times of stress and illness. 11/01/2024 Overweight (ICD-10 - E66.3) His body mass index is 26.9. He has gained 1 pound. We discussed his weight loss strategy at length. We made a plan to lose weight at a rate of one half of a pound per week. 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 In view of his history of prostate cancer, I referred him back to urology to discuss this matter 11/01/2024 Benign prostatic hyperplasia, unspecified whether lower urinary tract symptoms present (ICD-10 - N40.0) He rises from sleep once a night. He is taking finasteride. We discussed lifestyle modification as an additional way to control nocturia. 11/01/2024 Hypogonadism in male (ICD-10 - E29.1) He will continue the testosterone. 11/01/2024 Coronary artery disease involving [place] coronary artery of [place] heart without angina pectoris (ICD-10 - I25.10) He is free of angina palpitations or syncope. No change in his medications was needed. 11/01/2024 Erectile dysfunction, unspecified erectile dysfunction type (ICD-10 - N52.9) He is using tadalafil, but no longer takes testosterone since his diagnosis of carcinoma of the prostate. Plan Of Treatment Medication Medication Name Sig Start Date Stop Date Notes Metoprolol Succinate ER 25 MG 1 tablet Orally Once a day Atorvastatin Calcium 20 MG 1 tablet Orally Once a day Clopidogrel Bisulfate 75 MG 1 tablet Orally Once a day Testosterone Enanthate 200 MG/ML 1 ml Intramuscular every 2 weeks 12/05/2017 Aspirin 325 MG 1 tablet Orally Once a day Hujxdcm-Czshkbvnw-Lbyq 333-133-8.3 MG 1 tablet with a meal Orally Once a day Triamcinolone Acetonide 0.1 % APPLY 1 AP PLICATION EXTERNALLY TWICE A DAY Finasteride 5 MG 1 tablet Orally Once a day Tadalafil 20 MG 1 tablet for ED Oral ly Once a day Terbinafine HCl 1 % 1 application Absorber Operator ally twice a day 07/29/2021 Cosopt 22.3-6.8 MG/ML 1 drop into affect ed eye Ophthalmic Twice a day Glucosamine Sulfate 1000 MG 1 capsule wi th a meal Orally Once a day Pending Test Test Name Order Date PROFILE, FASTING (COMPREHENSIVE METABOLI C) 11/01/2024 PSA, TOTAL 11/01/2024 CBC w DIFF 11/01/2024 Lipid Panel 11/01/2024 Testosterone, Total 11/01/2024 Next Appt Details Follow Up: As Scheduled, Yessenia son: Annual Exam Provider Name:Phan Orlando , 08/06/2025 02:00:00 PM, [address] [place] [address] , [address], [place], [place], [phone], Progress Notes * ANTELMO SZYMANSKI MDOB:1945 (79 yo M)Acc No.[id number]:11/01/2024 Progress Notes Patient: ANTELMO VAUGHAN Provider: Tamar Orlando MD :1945 A ge:79 Y S ex:Male Date:11/01/2024 Address:[address] [place] [address] Subjective: * Chief Complaints: * K linefelter syndromeBenign prostatic hypertrophyProstate cancerHypogonadismHistory of atrial fibrillationCoronary artery disease * HPI: C OVID-19 Screening: Dania murray has appointment to see the urologist next month. His PSA remains elevated at a stable level. He is being treated with active surveillance. The day after his urologic appointment he and his are leaving the area on a boat to go to the [facility] for the winter. Dania murray was offered a colonoscopy for screening purposes and declined that procedure. He also declined Cologard.He declined a rectal examination saying that urology would do that.He denies any chest pain or shortness of breath bleeding or weight loss. Questions H ave you had any new [...] 1998cardiac catheterization ablation procedure for atrial fibrillation 2006right eye catartact extraction 2012left eye cataract extraction 2011colonoscopy, positive tubular adenoma, Dr. Phan Daily, [facility] 2012biopsy of prostate, positive for adenocarcinoma, [place] 3+4 = 7, Dr. Haji 06/2017colonoscopy, Dr. Phan Daily, [facility] 2007Stent placement right artery ardiac catheterization with stents on [facility] ilateral Carpaltunnel Surgery 04/2022 * Hospitalization/Major [...] with a meal Orally Once a day Gyduqrv-Bokjtnvzg-Qjrd 333-133-8.3 MG Tablet 1 tablet with a meal Orally Once a day Finasteride 5 MG Tablet 1 tablet Orally Once a day Tadalafil 20 MG Tablet 1 tablet for ED Orally Once a day Triamcinolone Acetonide 0.1 % Cream APPLY 1 APPLICATION EXTERNALLY TWICE A DAY Medication List reviewed and reconciled with the [...] a meal Orally Once a day Taking Guzprjn-Phegrfzis-Pmbs 333-133-8.3 MG Tablet 1 tablet with a meal Orally Once a day Taking Finasteride 5 MG Tablet 1 tablet Orally Once a day Taking Tadalafil 20 MG Tablet 1 tablet for ED Orally Once a day Taking Triamcinolone Acetonide 0.1 % Cream APPLY 1 APPLICATION EXTERNALLY TWICE A DAY Medication List reviewed and reconciled with the patient * Allergies: N o Known Drug AllergyNo Known Food Allergyno[Allergies Verified] Objective: * Vitals: H t: 72, Wt:200, BMI:27.12, BP:135/72, HR:66, Temp:97.4, Wt-k.72. * P ast Orders: Lab:Complete Blood Count Aut o Diff * Collection Date 10/22/2024 07/30/2024 11/06/2023 Collection Time 10:05 AM 10:29 AM 10:28 AM Order Date 10/22/2024 07/30/2024 11/06/2023 White Blood Count 5.8 (Ref Range: 4.8-10.8 X10*3/uL) 6.4 (Ref Range: 4.8-10.8 X10*3/uL) 5.5 (Ref Range: 4.8-10.8 X10*3/uL) Red Blood Count 5.59 (Ref Range: 4.60-5.80 X10*6/uL) 5.36 (Ref Range: 4.60-5.80 X10*6/uL) 5.64 (Ref Range: 4.60-5.80 X10*6/uL) Hemoglobin 17.4 (Ref Range: 14.0-18.0 g/dl) 16.5 (Ref Range: 14.0-18.0 g/dl) 16.9 (Ref Range: 14.0-18.0 g/dl) Hematocrit 51.1 (Ref Range: 42.0-52.0 %) 49.3 (Ref Range: 42.0-52.0 %) 51.0 (Ref Range: 42.0-52.0 %) Mean Corpuscular Volume 91.4 (Ref Range: 80.0-98.0 fL) 92.0 (Ref Range: 80.0-98.0 fL) 90.4 (Ref Range: 80.0-98.0 fL) Mean Corpuscular Hemoglobin 31.1 (Ref Range: 27.0-33.0 pg) 30.8 (Ref Range: 27.0-33.0 pg) 30.0 (Ref Range: 27.0-33.0 pg) Mean Corpuscular HGB Conc 34.1 (Ref Range: 31.0-36.0 g/dl) 33.5 (Ref Range: 31.0-36.0 g/dl) 33.1 (Ref Range: 31.0-36.0 g/dl) Red Cell Distribution Width 13.8 (Ref Range: 11.0-16.0 %) 13.5 (Ref Range: 11.0-16.0 %) 13.6 (Ref Range: 11.0-16.0 %) Platelet Count 167 (Ref Range: 160-400 X10*3/uL) 194 (Ref Range: 160-400 X10*3/uL) 179 (Ref Range: 160-400 X10*3/uL) Mean Platelet Volume 12.3 (Ref Range: 9.4-12.4 fL) 12.3 (Ref Range: 9.4-12.4 fL) 12.5 H (Ref Range: 9.4-12.4 fL) Neutrophils Percent Auto 66.3 (Ref Range: 45-73 %) 69.8 (Ref Range: 45-73 %) 68.1 (Ref Range: 45-73 %) Imm Gran Pct Auto 0.5 H (Ref Range: 0.0-0.4 %) 0.2 (Ref Range: 0.0-0.4 %) 0.2 (Ref Range: 0.0-0.4 %) Lymphocytes Percent Auto 22.1 (Ref Range: 20-40 %) 19.1 L (Ref Range: 20-40 %) 20.2 (Ref Range: 20-40 %) Monocytes Percent Auto 7.5 (Ref Range: 2-11 %) 8.0 (Ref Range: 2-11 %) 8.1 (Ref Range: 2-11 %) Eosinophils Percent Auto 2.7 (Ref Range: 0-4 %) 2.0 (Ref Range: 0-4 %) 2.3 (Ref Range: 0-4 %) Basophils Percent Auto 0.9 (Ref Range: 0-2 %) 0.9 (Ref Range: 0-2 %) 1.1 (Ref Range: 0-2 %) NRBC Pct Auto 0.0 (Ref Range: 0.0-0.2 /100WBC) 0.0 (Ref Range: 0.0-0.2 /100WBC) 0.0 (Ref Range: 0.0-0.2 /100WBC) Neutrophils Absolute Auto 3.9 (Ref Range: 2.0-8.3 x10*3/uL) 4.5 (Ref Range: 2.0-8.3 x10*3/uL) 3.8 (Ref Range: 2.0-8.3 x10*3/uL) Imm Gran Abs Auto 0.03 (Ref Range: 0.00-0.03 X10*3/uL) 0.01 (Ref Range: 0.00-0.03 X10*3/uL) 0.01 (Ref Range: 0.00-0.03 X10*3/uL) Lymphocytes Absolute Auto 1.3 (Ref Range: 1.2-4.9 X10*3/uL) 1.2 (Ref Range: 1.2-4.9 X10*3/uL) 1.1 L (Ref Range: 1.2-4.9 X10*3/uL) Monocytes Absolute Auto 0.4 (Ref Range: 0.1-1.2 X10*3/uL) 0.5 (Ref Range: 0.1-1.2 X10*3/uL) 0.5 (Ref Range: 0.1-1.2 X10*3/uL) Eosinophils Absolute Auto 0.2 (Ref Range: 0.0-0.4 X10*3/uL) 0.1 (Ref Range: 0.0-0.4 X10*3/uL) 0.1 (Ref Range: 0.0-0.4 X10*3/uL) Basophils Absolute Auto 0.1 (Ref Range: 0.0-0.2 X10*3/uL) 0.1 (Ref Range: 0.0-0.2 X10*3/uL) 0.1 (Ref Range: 0.0-0.2 X10*3/uL) NRBC Abs Auto 0.000 (Ref Range: 0.0-0.012 X10*3/uL) 0.000 (Ref Range: 0.0-0.012 X10*3/uL) 0.000 (Ref Range: 0.0-0.012 X10*3/uL) * Lab:PSA,Total (Free>4and<10) * Collection Date 10/22/2024 08/13/2024 07/26/2023 Collection Time 10:05 AM 09:48 AM 09:42 AM Order Date 10/22/2024 08/13/2024 07/26/2023 PSA,Total (Free>4and<10) 5.70 H (Ref Range: 0.00-4.00 ng/mL) 5.26 H (Ref Range: 0.00-4.00 ng/mL) 4.30 H (Ref Range: 0.00-4.00 ng/mL) * Lab:PSA Free and Total * Collection Date 10/22/2024 08/13/2024 11/06/2023 Collection Time 02:26 PM 02:03 PM 10:28 AM Order Date 10/22/2024 08/13/2024 11/06/2023 Prostate Specific Ag Total 4.9 A (Ref Range: < OR = 4.0 ng/mL) 4.7 A (Ref Range: < OR = 4.0 ng/mL) 3.9 (Ref Range: < OR = 4.0 ng/mL) Percent Free Prostate Spec Ag 29 (Ref Range: >25 % (calc)) 17 A (Ref Range: >25 % (calc)) 26 (Ref Range: >25 % (calc)) Free Prostate Spec Ag 1.4 (Ref Range: ng/mL) 0.8 (Ref Range: ng/mL) 1.0 (Ref Range: ng/mL) ???Lab:Comprehensive Met. Panel (Order Date - 10/22/2024) (Collection Date & Time - 10/22/2024 10:05 AM)?ValueReference Range?Lefdix998552-320 - mmol/L?Bilirubin Total1.2H0.0-1.0 - mg/dL?Aspartate Amino Eopyfffmbmz279-52 - U/L?Alanine Jdqgrdbsqvhajgah614-76 - U/L?Total Protein6.66.5-8.0 - g/dL?Albumin Level4.43.5-5.0 - g/dL?Alkaline Scfxndhuiax7664-242 - U/L?Potassium4.53.3-5.1 - mmol/L?Qekjmzua183 96-108 - mmol/L?Carbon Mzfejuo5323-21 - mmol/L?Anion Bii75F82-36 - ?Blood Urea Gyyffexg890-53 - mg/dL?Creatinine0.950.5-1.4 - mg/dL ?Estimated Glomerular Filt Rate> 60-?Glucose Sgpuch40947-899 - mg/dL?Calcium9.28.4-10.2 - mg/dL * Lab:URINE DIP STICK * Collection Date [...] -) neg Menstrating NR NR n/a * Lab:Prostate Specific Antige n * Collection Date 08/13/2024 07/30/2024 08/12/2022 Collection Time 09:48 AM 10:29 AM 10:07 AM Order Date 08/13/2024 07/30/2024 08/12/2022 Prostate Specific Antigen TNP (Ref Range: <0.05-4.0 ng/mL) 5.63 H (Ref Range: <0.05-4.0 ng/mL) 3.77 (Ref Range: <0.05-4.0 ng/mL) * Examination: G eneral Examination: GENERAL APPEARANCE: p leasant, well nourished, well developed, in no acute distress, calm and relaxed: overweight: elderly man. HEAD: a traumatic, normocephalic. EYES: e [...] sounds normal, no ascites, no organomegaly, no mass: overweight. RECTAL EXAM: n ot examined. MUSCULOSKELETAL: e xtremities unremarkable, no clubbing, cyanosis or edema. PERIPHERAL PULSES: n ormal. NEUROLOGIC: a lert and oriented, cranial nerves 2-12 grossly intact, deep tendon reflexes 2+ symmetrical, motor strength normal upper and lower extremities, sensory exam intact. PSYCH: a lert, oriented: cooperative with exam: cognitive function intact: good eye contact: speech clear: thought process logical, goal directed. ? Assessment: * Assessment: 1. P rostate cancer - C61 (Primary) N otes :His PSA is stable at 5.7. He will see urology soon. He is being treated with active surveillance. 2 . F ormer smoker - Z87.891 N otes :He has a plan to prevent relapse in times of stress and illness. 3 . O verweight - E66.3 N otes :His body mass index is 26.9. He has gained 1 pound. We discussed his weight loss strategy at length. We made a plan to lose weight at a rate of one half of a pound per week. 4 . 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 In view of his history of prostate cancer, I referred him back to urology to discuss this matter 5 . B enign prostatic hyperplasia, unspecified whether lower urinary tract symptoms present - N40.0 N otes :He rises from sleep once a night. He is taking finasteride. We discussed lifestyle modification as an additional way to control nocturia. 6 . H ypogonadism in male - E29.1 N otes :He will continue the testosterone. 7 . C oronary artery disease involving [place] coronary artery of [place] heart without angina pectoris - I25.10 N otes :He is free of angina palpitations or syncope. No change in his medications was needed. 8 . E rectile dysfunction, unspecified erectile dysfunction type - N52.9 ? N otes :He is using tadalafil, but no longer takes testosterone since his diagnosis of carcinoma of the prostate. Plan: * Treatment: 2. B enign prostatic hyperplasia, unspecified whether lower urinary tract symptoms present Continue Tadalafil Tablet, 20 MG, 1 tablet for ED, Orally, Once a day; C ontinue Testosterone Enanthate Solution, 200 MG/ML, 1 ml, Intramuscular, every 2 weeks; C ontinue Aspirin Tablet, 325 MG, 1 tablet, Orally, Once a day; C ontinue Cosopt Solution, 22.3-6.8 MG/ML, 1 drop into affected eye, Ophthalmic, Twice a day; C ontinue Glucosamine Sulfate Capsule, 1000 MG, 1 capsule with a meal, Orally, Once a day; C ontinue Ivqxkrm-Wianskzdw-Sfry Tablet, 333-133-8.3 MG, 1 tablet with a meal, Orally, Once a day; C ontinue Finasteride Tablet, 5 MG, 1 tablet, Orally, Once a day.? L AB: PROFILE, FASTING (COMPREHENSIVE METABOLIC) L AB: PSA, TOTAL L AB: CBC w DIFF L AB: Lipid Panel L AB: Testosterone, Total 3. O thers Continue Triamcinolone Acetonide Cream, 0.1 %, APPLY 1 APPLICATION EXTERNALLY TWICE A DAY; C ontinue Terbinafine HCl Cream, 1 %, 1 application, [...] tobacco use and urged to quit. 0 11/01/2024 * Follow Up: A s Scheduled (Reason: Annual Exam) * Images: * Sign off status: Completed true * Provider: Tamar Orlando MD Date: 0 11/01/2024 Generated for Nacho goyal/Esteban/Kiah on: 09:30 AM EDT History and Physical Notes * HPI (History of Present Illness) Category Sub-Category Detail Notes COVID-19 Screening Questions Have you had any new onset fever, chills, cough, congestion, sore throat, shortness of breath, muscle aches?: No Examination Category Sub-Category Detail Notes General Examination GENERAL APPEARANCE: pleasant , well nourished, well developed, in no acute distress, calm and relaxed: overweight: elderly man HEAD: atraumatic, normocep halic EYES: eomi, perrla, anicte link, conjugate EARS: normal NOSE: septum intact NECK/THYROID: no jugular venous di stention, no carotid bruit, thyroid normal HEART: no clicks, gallops, murmurs, or rubs, regular rhythm, S1, S2 normal, no s3, or vascular bruits LUNGS: clear to auscultatio n ABDOMEN: bowel sounds normal, no ascites, no organomegaly, no mass: overweight NEUROLOGIC: alert and oriented, cranial nerves 2-12 grossly intact, deep tendon reflexes 2+ symmetrical, motor strength normal upper and lower extremities, sensory exam intact SKIN: no suspicious lesion s, anicteric PERIPHERAL PULSES: normal BREASTS: no masses palpable b ilaterally MUSCULOSKELETAL: extremities unremark able, no clubbing, cyanosis or edema LYMPH NODES: no enlarged lymph no mya,spleen normal RECTAL EXAM: not examined PSYCH: alert, oriented: coconut cooker perative with exam: cognitive function intact: good eye contact: speech clear: thought process logical, goal directed ORAL CAVITY: normal, unremarkable
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
--- OUTSIDE RECORDS SUMMARY | 2024-11-29 09:30 | XMS_ITS | Clinical Summary ---
Author Organization Formerly [facility] Address [address] [place] [id number] Phone Care Team Providers Care Measurer Machine Name Role Phone Phan Orlando MD Primary Care Provider [phone] Allergies No known active allergies Social History [...] VACCINE (1 - 1-dose 75+ series) 2020 INFLUENZA VACCINE (#1) 2024 COVID-19 VACCINE (2 - 2024-2 6 season) 2024 08/22/2020 Adult Td,Tdap Booster 06/28/2025 06/29/2015 LIPID [...] (10/29/2021 12:53 PM EDT) HDL 37 mg/dL [facility] Comment: Interpretation <40 mg/dL: Low HDL cholesterol (major risk factor for CHD) Greater than or equal to 60 mg/dL: High HDL cholesterol ( negative risk factor for CHD) HDL - cholesterol is affected by a number of factors, e.g. smoking, excerise, hormones, sex and age. CHOLESTEROL 146 0 - 240 mg/dL [facility] TRIGLYCERIDES 193(H) 30 - 160 mg/dL [facility] LDL 70 50 - 129 mg/dL [facility] Comment: LDL levels in terms of risk for coronary heart disease: <100 mg/dL: Optimal 100-129 mg/dL: Near or above optimal 130-159 mg/dL: Borderline high 160-189 mg/dL: High >190 mg/dL: Very High CARDIAC RISK RATIO 3.9 3.4 - 5.0 [facility] Blood 10/29/2021 12:5 3 PM EDT 10/29/2021 6:06 PM EDT us Phan Orlando MD LAB BLOOD ORDERABLES Final Result [facility] [address] [place] [address] from Last 3 Months or Most Recently Relevant to Health Maintenance Insurance MEDICARE PART A & B [employer] MEDICARE SUPPLEMENT MEDICARE PART A & B [employer] MEDICARE SUPPLEMENT MEDICARE PART A & B [facility] MEDICARE SUPPLEMENT MEDICARE PART A & B [employer] EXTENSION MEDICARE SUPPLEMENT [facility] & [facility] EXTENSION MEDICARE SUPPLEMENT MEDICARE PART A & B [facility] MEDICARE SUPPLEMENT MEDICARE PART A & B [facility] EXTENSION MEDICARE SUPPLEMENT MEDICARE PART A & B [facility] EXTENSION MEDICARE SUPPLEMENT MEDICARE PART A & B [employer] [facility] EXTENSION MEDICARE SUPPLEMENT Care Teams Measurer Machine Relationship Specialty Start Date End Date Phan Orlando MD [address] [place] [address] [place] [address] PCP - General Medical Oncology 10/29/21 Additional Source Comments The information contained in this document represents components of the legal health record. It is not the complete legal health record.Formerly [facility]
--- OUTSIDE RECORDS SUMMARY | 2024-11-29 09:30 | XMS_ITS | Clinical Summary ---
Author Organization [facility] Address [address] [place] [address] Care Team Providers Care Rough Planer Tender Name Role Phone Unavailable Primary Care Provider [...] Immunization (1 - 1-dose 75+ series) 2020 Influenza vaccine 09/27/2024 Covid-19 vaccine series ( - season) 2024 Colon cancer screening, Colonoscopy Discontinued Meningococcal B Vaccine Aged Out No l onger eligible based on patient's age to complete this topic Meningococcal Vaccine Aged Out No sophia luis eligible based on patient's age to complete this topic
--- OUTSIDE RECORDS SUMMARY | 2024-11-29 09:31 | XMS_ITS | Patient Health Record ---
Author Organization [facility] Address [address] [place] [address] Care Team Providers Care Garment Manufacturer Name Role Phone Phan Orlando MD Primary Care Provider Unavailab Phan Alvarez Unavailable [phone] Allergies No Known Allergies Reason For Referral No Information Medications Medication SIG (Take, Route, Frequency, Duration) Notes Start Date End Date Status Aspirin EC 325mg Active Metoprolol Succinate ER 25 MG Oral for 90 Active Finasteride 5 MG Oral for 90 A ctive Tadalafil 20 MG TAKE 1 TABLET BY TH ONCE A DAY Oral for 30 Active Clopidogrel Bisulfate 75 MG Oral for 90 Active Atorvastatin Calcium 20 MG Oral for 90 Active Problems Problem Type SNOMED Code ICD Code Onset Dates Problem Status W/U Status Risk Notes Problem History of adenomatous polyp of colon (074823176) History of adenomatous polyp of colon (Z86.010) Active confirmed Problem Diverticular disease of colon (214285360) Diverticulosis of large intestine without perforation or abscess without bleeding (K57.30) Active confirmed Problem Abnormal feces (203691925) Positive colorectal cancer screening using Cologuard test (R19.5) Active confirmed Plan Of Treatment Pending Test Test Name Order Date Pathology 11/23/2023 Future Test Test Name Order Date COLONOSCOPY 08/04/2011 COLONOSCOPY 11/07/2023 Insurance Providers Payer Name Payer Address Payer Phone Subscriber Number Group Number Insured Name Patient Relationship to Insured Coverage Start Date Coverage End Date MEDICARE OF [place] [address] [place] [address] [id number] ANTELMO BLANC Self - patient is the insured [employer] ([employer]) [address] [place] [address] [phone] [id number] ANTELMO BLANC Self - patient is the insured Medical (General) History Medical History History ICD Code Colonoscopy 06-23-2006 small tubular trent omid removed Atrial fibrillation-resolved with cardia c ablation in [place] Glaucoma Denies [place],DM,CVA,Lung disease,renal dise ase Colonoscopy in 2011 with small tubular a denomas removed CAD-3 stents in RCA in 2021 in [place]. Had a neg ETT in 04/2023 in [place] BPH Surgical History Surgery Date(Month/Year) Appy Knee surgery CCY Bilateral carpal tunnel Trigger fingers
--- OUTSIDE RECORDS SUMMARY | 2024-11-29 09:31 | XMS_ITS | Clinical Summary ---
Author Organization [facility] Address [address] [place] [address] Care Team Providers Care Burrer Machine Name Role Phone Unavailable Primary Care Provider Unavailabl e Social History Tobacco Use Types Packs/Day Years Used Date Smoking Tobacco: Never Assessed Sex and Gender Information Value Date Recorded Sex Assigned at Not on file Legal Sex Male 6:13 PM EST Gender Identity Not on file Sexual Orientation Not on file Plan of Treatment Health Maintenance Due Date Last Done Comments Advance Care Planning 1945 Hepatitis C Virus Screening 1945 DTaP/Tdap/Td Vaccines (1 - Tdap) 1964 Pneumococcal Vaccines 50+ (1 of 1 - PCV) 1995 Zoster (Shingles) Vaccine (1 of 2) 1995 RSV Vaccine 60 years and old er and Patients (1 - 1-dose 75+ series) 2020 COVID-19 Vaccine ( - 2023-2 5 season) 2024 Hepatitis B Vaccines Aged Out No long er eligible based on patient's age to complete this topic
--- OUTSIDE RECORDS SUMMARY | 2024-11-29 09:31 | XMS_ITS | Patient Health Record ---
Author Organization Phan Orlando III, MD Address [address] [place] [address] [address] [place] [address] Care Team Providers Care Motion Pictures Cartoonist Name Role Phone Dr. Phan Orlando III Primary Care Provider [phone] Allergies Allergen (clinical drug ingredient) Drug/Non Drug Allergy documented on EMR Reaction Allergy Type Onset Date Status No Known Drug Allergy Unknown Drug Allergy Active No Known Food Allergy Unknown Drug Allergy Active Results Component Value Reference Range Notes Complete Blood Count Auto Di ff Reviewed date:08/07/2024 01:08:10 PM Interpretation: Performing Lab:[facility], [address] [place] [phone] Notes/Report: White Blood Count 6.4 4.8-10.8 X10*3/uL [...] NRBC Abs Auto 0.000 0.0-0.012 X10*3/uL Comprehensive [place]. Panel Fa st Reviewed date:08/07/2024 01:08:10 PM Interpretation: Performing Lab:[facility], [address] [place] [phone] Notes/Report: Sodium 140 135-145 mmol/L Potassium 4.6 [...] Panel Reviewed date:08/07/2024 01:08:10 PM Interpretation: Performing Lab:[address] [phone] Notes/Report: Triglycerides 82 <150 mg/dL Desirable Triglyceride: [...] Antigen Reviewed date:08/07/2024 01:08:10 PM Interpretation: Performing Lab:[address] [phone] Notes/Report: Prostate Specific Antigen 5.63 <0.05-4.0 ng/mL [...] Total Reviewed date:08/28/2024 03:57:02 PM Interpretation: Performing Lab:[address] [phone] Notes/Report: Prostate Specific Ag Total 4.7 < OR = 4.0 ng/ mL Percent Free Prostate Spec Ag 17 >25 % (calc ) PSA(ng/mL) Free PSA(%) Estimated(x) Probability of Cancer(as%) 0-2.5 (*) Approx. 1 2.6-4.0(1) 0-27(2) 24(3) 4.1-10(4) 0-10 56 11-15 28 16-20 20 21-25 16 >or =26 8 >10(+) N/A >50 References:(1)Mitzy et al.:Urology 60: 469-474 (2001) (2)Mitzy et al.:J.Urol 168: 922-925 (2001) Free PSA(%) Sensitivity(%) Specificity(%) < or = 25 85 19 < or = 30 93 9 (3)Tiffanieona et al.:KASI 277: 4382-1940 (1996) (4)Catalona et al.:KASI 279: 5095-1114 (1997) (x)These estimates vary with age, ethnicity, [...] of disease. THIS TEST WAS PERFORMED AT: [facility] [address] [address] WAGNER POLANCO MD Free Prostate Spec Ag 0.8 PSA,Total (Free>4and<10) Reviewed date:08/28/2024 03:57:02 PM Interpretation: Performing Lab:[address] [phone] Notes/Report: PSA,Total (Free>4and<10) 5.26 0.00-4.00 ng/mL PSA methodology: Cedeño Alinity i Chemiluminescent Microparticle Immunoassay (CMIA) Prostate Specific Antigen Reviewed date:08/28/2024 03:57:02 PM Interpretation: Performing Lab:[address] [phone] Notes/Report: Prostate Specific Antigen TNP <0.05-4.0 ng/mL DUPL ORDER Complete Blood Count Auto Di ff Reviewed date:10/29/2024 04:51:12 AM Interpretation: Performing Lab:[facility], [address] [place] [phone] Notes/Report: White Blood Count 5.8 4.8-10.8 X10*3/uL Red Blood Count 5.59 4.60-5.80 X10*6/uL Hemoglobin 17.4 14.0-18.0 g/dl Hematocrit 51.1 42.0-52.0 % Mean Corpuscular Volume 91.4 80.0-98.0 fL Mean Corpuscular Hemoglobin 31.1 27.0-33.0 pg Mean Corpuscular HGB Conc 34.1 31.0-36.0 g/dl Red Cell Distribution Width 13.8 11.0-16.0 % Platelet Count 167 160-400 X10*3/uL Mean Platelet Volume 12.3 9.4-12.4 fL Neutrophils Percent Auto 66.3 45-73 % Imm Gran Pct Auto 0.5 0.0-0.4 % Lymphocytes Percent Auto 22.1 20-40 % Monocytes Percent Auto 7.5 2-11 % Eosinophils Percent Auto 2.7 0-4 % Basophils Percent Auto 0.9 0-2 % NRBC Pct Auto 0.0 0.0-0.2 /100WBC Neutrophils Absolute Auto 3.9 2.0-8.3 x10*3/u L Imm Gran Abs Auto 0.03 0.00-0.03 X10*3/uL Lymphocytes Absolute Auto 1.3 1.2-4.9 X10*3/u L Monocytes Absolute Auto 0.4 0.1-1.2 X10*3/uL Eosinophils Absolute Auto 0.2 0.0-0.4 X10*3/u L Basophils Absolute Auto 0.1 0.0-0.2 X10*3/uL NRBC Abs Auto 0.000 0.0-0.012 X10*3/uL Comprehensive Met. Panel Reviewed date:10/29/2024 04:51:12 AM Interpretation: Performing Lab:[facility], [address] [place] [phone] Notes/Report: Sodium 140 135-145 mmol/L Potassium 4.5 3.3-5.1 mmol/L Chloride 108 96-108 mmol/L Carbon Dioxide 26 22-29 mmol/L Anion Gap 11 12-20 Blood Urea Nitrogen 14 9-16 mg/dL Creatinine 0.95 0.5-1.4 mg/dL Estimated Glomerular Filt Rate > 60 Chronic Kidney Disease: Estimated GFR < 60 mL/min/1.73m2 Severe Kidney Disease: Estimated GFR < 15 mL/min/1.73m2 Glucose Random 114 60-115 mg/dL Calcium 9.2 8.4-10.2 mg/dL Bilirubin Total 1.2 0.0-1.0 mg/dL Aspartate Amino Transferase 27 5-37 U/L Alanine Aminotransferase 24 0-40 U/L Total Protein 6.6 6.5-8.0 g/dL Albumin Level 4.4 3.5-5.0 g/dL Alkaline Phosphatase 56 39-117 U/L PSA Free and Total Reviewed date:10/29/2024 04:51:12 AM Interpretation: Performing Lab:[facility], [address] [place] [phone] Notes/Report: Prostate Specific Ag Total 4.9 < OR = 4.0 ng/ mL Percent Free Prostate Spec Ag 29 >25 % (calc ) PSA(ng/mL) Free PSA(%) Estimated(x) Probability of Cancer(as%) 0-2.5 (*) Approx. 1 2.6-4.0(1) 0-27(2) 24(3) 4.1-10(4) 0-10 56 11-15 28 16-20 20 21-25 16 >or =26 8 >10(+) N/A >50 References:(1)Mitzy et al.:Urology 60: 469-474 (2002) (2)Tiffanieona et al.:J.Urol 168: 922-925 (2002) Free PSA(%) Sensitivity(%) Specificity(%) < or = 25 85 19 < or = 30 93 9 (3)Tiffanieona et al.:KASI 277: 7381-8118 (1996) (4)Catalona et al.:KASI 279: 5302-9107 (1997) (x)These estimates vary with age, ethnicity, [...] of disease. THIS TEST WAS PERFORMED AT: [facility] [address] [place] [phone] WAGNER POLANCO MD Free Prostate Spec Ag 1.4 PSA,Total (Free>4and<10) Reviewed date:10/29/2024 04:51:12 AM Interpretation: Performing Lab:[facility], [address] [place] [phone] Notes/Report: PSA,Total (Free>4and<10) 5.70 0.00-4.00 ng/mL PSA methodology: AblynxniChirply i Chemiluminescent Microparticle Immunoassay (CMIA) Reason For Referral No Information Medications Medication SIG (Take, Route, Frequency, Duration) Notes Start Date End Date Status Dmdnqqi-Eakpvoqlo-Oacf 333-133-8.3 MG 1 tablet with a meal Orally Once a day Active Triamcinolone Acetonide 0.1 % APPLY 1 APPLICATION EXTERNALLY TWICE A DAY Active Finasteride 5 MG 1 tablet Orally Once a day Active Tadalafil 20 MG 1 tablet for ED Oral ly Once a day Active Terbinafine HCl 1 % 1 application Paper Guillotine Operator ally twice a day 07/29/2021 Active Metoprolol Succinate ER 25 MG 1 [...] a meal Orally Once a day Active Immunizations Vaccine [...] Problem Status W/U Status Risk Notes Problem 1626442 Former smoker (Z87.891) Active confirmed He has a plan to prevent relapse in times of stress and illness. Problem 015445240 Overweight (E66.3) Active confirmed His body mass index is 26.9. He has gained 1 pound. We discussed his weight loss strategy at length. We made a plan to lose weight at a rate of one half of a pound per week. Problem Prostate cancer (516909585) Prostate cancer (C61) Active confirmed His PSA is stable at 5.7. He will see urology soon. He is being treated with active surveillance. Problem 48407216 Other chronic pain (G89.29) Active confirmed Problem 148674760 Erectile dysfunction, unspecified erectile dysfunction type (N52.9) Active confirmed He is using tadalafil, but no longer takes testosterone since his diagnosis of carcinoma of the prostate. Problem 970214769 Coronary artery disease involving paimiut coronary artery of paimiut heart without angina pectoris (I25.10) Active confirmed He is free of angina palpitations or syncope. No change in his medications was needed. Problem 92233463 Hypogonadism in male (E29.1) Active confirmed He will continue the testosterone. Problem 087912353 History of atrial fibrillation (Z86.79) Active confirmed He was in a regular rhythm today with no murmurs. Problem Benign prostatic hypertrophy without outflow obstruction (148969673) Benign prostatic hyperplasia, unspecified whether lower urinary tract symptoms present (N40.0) Active confirmed He rises fro m sleep once a night. He is taking finasteride. We discussed lifestyle modification as an additional way to control nocturia. 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 In view of his history of prostate cancer, I referred him back to urology to discuss this matter Problem 27345845 Glaucoma of both eyes, unspecified glaucoma type (H40.9) Active confirmed He will continue with regular visits to the ophthalmologis t. Vital Signs Heart Rate 66 /min 11/01/2024 Temperature 97.4 degrees Fahrenheit 11/01/2024 Blood pressure diastolic 72 mm Hg 11/01/2024 Height 72 in 11/01/2024 Blood pressure systolic 135 mm Hg 11/01/2024 Weight 200 lbs 11/01/2024 BMI 27.12 kg/m2 11/01/2024 Encounters Encounter Location Date Provider Diagnosis Phan Orlando III, MD [address] [place] [address] [place] [address] 08/05/2024 Phan Orlando Benign prostatic hyperplasia, unspecified whether lower urinary tract symptoms present N40.0 ; Prostate cancer C61 ; Klinefelter syndrome Q98.4 ; Hypogonadism in male E29.1 ; Overweight E66.3 ; Former smoker Z87.891 and Elevated PSA R97.20 Phan Orlando III, MD [address] [place] [address] [place] [address] 08/27/2024 Phan Orlando Benign prostatic hyperplasia, unspecified whether lower urinary tract symptoms present N40.0 ; Prostate cancer C61 ; Klinefelter syndrome Q98.4 ; Hypogonadism in male E29.1 ; Overweight E66.3 ; Coronary artery disease involving paimiut coronary artery of paimiut heart without angina pectoris I25.10 ; Former smoker Z87.891 and History of atrial fibrillation Z86.79 Phan Orlando III, MD [address] [place] [address] [address] [place] [address] 11/01/2024 Phan Orlando Prostate cancer C61 ; Former smoker Z87.891 ; Overweight E66.3 ; Klinefelter syndrome Q98.4 ; Benign prostatic hyperplasia, unspecified whether lower urinary tract symptoms present N40.0 ; Hypogonadism in male E29.1 ; Coronary artery disease involving paimiut coronary artery of paimiut heart without angina pectoris I25.10 and Erectile dysfunction, unspecified erectile dysfunction type N52.9 Phan Orlando III, MD [address] [place] [address] [address] [place] [phone] 09/24/2024 Phan Orlando Benign prostatic hyperplasia, unspecified whether lower urinary tract symptoms present N40.0 Assessments Encounter Date Diagnosis (ICD Code) Assessment Notes Treatment Notes Treatment Clinical Notes 08/05/2024 Prostate cancer (ICD-10 - C61) He [...] urinary tract symptoms present (ICD-10 - N40.0) 11/01/2024 Former smoker (ICD-10 - Z87.891) He has a plan to prevent relapse in times of stress and illness. 11/01/2024 Prostate cancer (ICD-10 - C61) His PSA is stable at 5.7. He will see urology soon. He is being treated with active surveillance. 09/24/2024 Benign prostatic hyperplasia, unspecified whether lower urinary tract symptoms present (ICD-10 - N40.0) 08/05/2024 Klinefelter syndrome (ICD-10 - Q98.4) He requested a prescription for testosterone injections. In view of his history of prostate cancer, I referred him back to urology to discuss this matter 08/27/2024 Klinefelter syndrome (ICD-10 - Q98.4) He requested a prescription for testosterone injections. In view of his history of prostate cancer, I referred him back to urology to discuss this matter 11/01/2024 Overweight (ICD-10 - E66.3) His body mass index is 26.9. He has gained 1 pound. We discussed his weight loss strategy at length. We made a plan to lose weight at a rate of one half of a pound per week. 08/05/2024 Hypogonadism in male (ICD-10 - E29.1) He will continue the testosterone. 08/27/2024 Hypogonadism in male (ICD-10 - E29.1) He will continue the testosterone. 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 In view of his history of prostate cancer, I referred him back to urology to discuss this matter 08/05/2024 Overweight (ICD-10 - E66.3) His body [...] half of a pound per week. 11/01/2024 Benign prostatic hyperplasia, unspecified whether lower urinary tract symptoms present (ICD-10 - N40.0) He rises from sleep once a night. He is taking finasteride. We discussed lifestyle modification as an additional way to control nocturia. 08/05/2024 Former smoker (ICD-10 - Z87.891) He has a plan to prevent relapse in times of stress and illness. 08/27/2024 Coronary artery disease involving paimiut coronary artery of paimiut heart without angina pectoris (ICD-10 - I25.10) He is free of angina palpitations or syncope. No change in his medications was needed. 11/01/2024 Hypogonadism in male (ICD-10 - E29.1) He will continue the testosterone. 08/05/2024 Elevated PSA (ICD-10 - R97.20) 08/27/2024 Former smoker (ICD-10 - Z87.891) He has a plan to prevent relapse in times of stress and illness. 11/01/2024 Coronary artery disease involving paimiut coronary artery of paimiut heart without angina pectoris (ICD-10 - I25.10) He is free of angina palpitations or syncope. No change in his medications was needed. 08/27/2024 History of atrial fibrillation (ICD-10 - Z86.79) He was in a regular rhythm today with no murmurs. 11/01/2024 Erectile dysfunction, unspecified erectile dysfunction type (ICD-10 - N52.9) He is using tadalafil, but no longer takes testosterone since his diagnosis of carcinoma of the prostate. Plan Of Treatment Pending Test Test Name Order Date PROFILE, FASTING (COMPREHENSIVE METABOLI C) 08/01/2023 PROFILE, FASTING (COMPREHENSIVE METABOLI C) 11/01/2024 PROFILE, FASTING (COMPREHENSIVE METABOLI C) 11/15/2023 PROFILE, RANDOM (COMPREHENSIVE METABOLIC ) 08/27/2024 TSH (THYROID STIMULATING HORMONE) 2023 PSA, TOTAL 08/27/2024 PSA, TOTAL 11/15/2023 PSA, TOTAL 11/01/2024 PSA, TOTAL+FREE 08/01/2023 CBC w DIFF 08/27/2024 CBC w DIFF 11/15/2023 CBC w DIFF 08/01/2023 CBC w DIFF 11/01/2024 Lipid Panel 11/01/2024 Lipid Panel 11/15/2023 PSA Free and Total 08/05/2024 Testosterone, Total 11/01/2024 Next Appt Details Provider Name:Phan Orlando , 08/06/2025 02:00:00 PM, [address] [place] [address] , YURIY Carmen, [place], [phone], Insurance Providers Payer Name Payer Address Payer Phone Subscriber Number Group Number Insured Name Patient Relationship to Insured Coverage Start Date Coverage End Date MEDICARE N[place] [address] [place] [phone] [id number] ANTELMO SZYMANSKI Self - patient is the insured [employer] ([employer]) [address] [place] [address] [phone] [id number] ANTELMO SZYMANSKI Self - patient is the insured Medical (General) History Medical History History ICD Code Primary hypogonadism in male E29.1 Klinefelter syndrome Q98.4 benign prostatic hypertrophy overweight, BMI 29 glaucoma cholecystectomy appendectomy, degenerative joint disease . Both knees history of ablation procedure for atrial fibrillation. 2006 cataract extractions former smoker 2017 adenocarcinoma prostate, Dr. Haji, [facility] Coronary artery disease, cardiac cathete rization May 2021 Surgical History Surgery Date(Month/Year) Bilateral Carpaltunnel Surgery 04/2022 Cardiac catheterization with stents on B [facility] 05/2021 Stent placement right artery 05/2021 colonoscopy, Dr. Phan Daily, [facility] 2006 biopsy of prostate, positive for adenocarcinoma, [place] 3+4 = 7, Dr. Haji 06/2017 colonoscopy, positive tubula r adenoma, Dr. Phan Daily, [facility] 2011 left eye cataract extraction 2011 right eye catartact extraction 2011 cardiac catheterization ablation procedu re for atrial fibrillation 2006 bilateral meniscus arthroscopic surgery 1994, 1998 appendectomy cholecystectomy
== END 2024-11-29 09:50 | disposition home or self-care (01) ==
LOC: HO.HUSH 09:06
PROVIDERS: PCP Internal Medicine Medical Oncology; Visit Provider Urology
DX: C61 Malignant neoplasm of prostate (principal); N52.1 Erectile dysfunction due to diseases classified elsewhere; E29.1 Testicular hypofunction
CPT/HCPCS: 99213; G2211

== ENCOUNTER → 2024-11-29 09:05 | Outpatient (BNVA) | payer MEDICARE, OTHER, SELFPAY | PROVIDERS: PCP Internal Medicine Medical Oncology; Visit Provider Urology | DX: C61 Malignant neoplasm of prostate (principal); E29.1 Testicular hypofunction; N52.1 Erectile dysfunction due to diseases classified elsewhere | CPT/HCPCS: 99212 ==